=== PATIENT | female | born 1970 | race Caucasian/White ===

== ENCOUNTER → 2019-01-30 11:15 | Outpatient (CLI) | payer OTHER, SELFPAY ==
[2019-01-30 11:09] VITALS: BMI 22.1
[2019-02-23 11:56] LABS: HPV APTIMA, High Risk Negative (Negative)
== END ==
PROVIDERS: Family Provider Nurse Practitioner Family; PCP Nurse Practitioner Family; Referring Provider Obstetrics & Gynecology; Visit Provider Obstetrics & Gynecology
DX: Z12.4 Encounter for screening for malignant neoplasm of cervix (principal)
CPT/HCPCS: 87624; 88175; G0145

== ENCOUNTER → 2021-04-16 12:39 | Outpatient (CLI) | payer OTHER, SELFPAY ==
[2021-04-16 14:54] LABS: NATERA MAILED SPECIMEN
== END ==
PROVIDERS: Referring Provider Obstetrics & Gynecology; Visit Provider Obstetrics & Gynecology
DX: Z12.9 Encounter for screening for malignant neoplasm, site unspecified (principal); Z80.3 Family history of malignant neoplasm of breast
CPT/HCPCS: 36415

== ENCOUNTER → 2021-06-11 11:35 | Outpatient (CLI) | payer OTHER, SELFPAY ==
[2021-06-12 13:36] LABS: Cancer Antigen 125 16.6 U/mL (0.0-38.1)
== END ==
PROVIDERS: Referring Provider Obstetrics & Gynecology; Visit Provider Obstetrics & Gynecology
DX: Z15.01 Genetic susceptibility to malignant neoplasm of breast (principal); Z15.09 Genetic susceptibility to other malignant neoplasm
CPT/HCPCS: 36415; 86304

== ENCOUNTER → 2021-06-15 13:22 | Outpatient (CLI) | payer OTHER, SELFPAY ==
--- NOTE | 2021-06-15 13:26 | US_ITS ---
STUDY: ULTRASOUND OF THE FEMALE PELVIS - COMPLETE REASON FOR EXAM: Female, 51 years old. Brca2 LMP: 05/28/2021. TECHNIQUE: Transabdominal and Transvaginal TECHNICAL QUALITY: Adequate. COMPARISON: None. FINDINGS: The uterus is anteverted and is in a midline position. The uterus measures 9.1 cm x 5.9 cm x 4.2 cm. There is a Nabothian cyst of the cervix. The endometrium measures 5.8 mm in thickness, and is hyperechoic. There is no demonstrated endometrial mass. There is no demonstrated myometrial mass. I.U.D. - The patient does not have an I.U.D. The right ovary is visualized. The right ovary measures 2 cm x 1.8 cm x 0.9 cm. There is no right ovarian cyst or ovarian mass. There is no visualized right adnexal mass or complex lesion. There is normal arterial and normal venous vascularity. The left ovary is visualized. The left ovary measures 4 cm x 3.7 cm x 2.3 cm. There is a 2.4 cm x 2.3 cm x 2.1 cm left ovarian cyst. There is no visualized left adnexal mass or complex lesion. There is normal arterial and normal venous vascularity. There is no fluid in the cul-de-sac. The pre void volume of the bladder was 550 ml. US/Pelvic (Non ) IMPRESSION: 2.4 cm x 2.3 cm x 2.1 cm left ovarian cyst. Electronically Signed: Rusty Layton MD at 14:33 EST , Service support ,
--- NOTE | 2021-06-15 13:26 | US_ITS ---
STUDY: ULTRASOUND OF THE FEMALE PELVIS - COMPLETE REASON FOR EXAM: Female, 51 years old. Brca2 LMP: 05/28/2021. TECHNIQUE: Transabdominal and Transvaginal TECHNICAL QUALITY: Adequate. COMPARISON: None. FINDINGS: The uterus is anteverted and is in a midline position. The uterus measures 9.1 cm x 5.9 cm x 4.2 cm. There is a Nabothian cyst of the cervix. The endometrium measures 5.8 mm in thickness, and is hyperechoic. There is no demonstrated endometrial mass. There is no demonstrated myometrial mass. I.U.D. - The patient does not have an I.U.D. The right ovary is visualized. The right ovary measures 2 cm x 1.8 cm x 0.9 cm. There is no right ovarian cyst or ovarian mass. There is no visualized right adnexal mass or complex lesion. There is normal arterial and normal venous vascularity. The left ovary is visualized. The left ovary measures 4 cm x 3.7 cm x 2.3 cm. There is a 2.4 cm x 2.3 cm x 2.1 cm left ovarian cyst. There is no visualized left adnexal mass or complex lesion. There is normal arterial and normal venous vascularity. There is no fluid in the cul-de-sac. The pre void volume of the bladder was 550 ml. US/Transvaginal Non- IMPRESSION: 2.4 cm x 2.3 cm x 2.1 cm left ovarian cyst. Electronically Signed: Rusty Layton MD at 14:33 EST , Service support ,
== END ==
PROVIDERS: Referring Provider Obstetrics & Gynecology; Visit Provider Obstetrics & Gynecology
DX: Z15.01 Genetic susceptibility to malignant neoplasm of breast (principal); Z15.09 Genetic susceptibility to other malignant neoplasm; N83.202 Unspecified ovarian cyst, left side
CPT/HCPCS: 76830; 76856

== ENCOUNTER 2021-06-23 11:56 | Day surgery (SDC) | payer OTHER, SELFPAY ==
--- NOTE | 2021-06-22 08:50 | EKG12_ITS ---
Test Reason : PRE-OP Blood Pressure : / mmHG Vent. Rate : 075 BPM Atrial Rate : 075 BPM P-R Int : 146 ms QRS Dur : 076 ms QT Int : 380 ms P-R-T Axes : 032 076 055 degrees QTc Int : 424 ms Normal sinus rhythm Normal ECG Confirmed by CHERRY SMITH, FABIÁN ([id number]), editorial assistant CANDE VASQUEZ ([id number]) on 06/22/2021 1:22:57 PM Referred By: Autumn Melendez Confirmed By:FABIÁN CAREY MD
[2021-06-22 09:56] LABS: Absolute Lymphocyte Count 2.24 X10^3/uL (0.83-4.51); Absolute Neutrophil Count 6.2 X10^3/uL (2.0-7.7); Basophil# 0.06 X10^3/uL; Basophil% 0.6 % (0-1); Eosinophil# 0.18 X10^3/uL; Eosinophils% 1.9 % (0-5); Hematocrit 44.5 % (37-47); Hemoglobin 14.8 g/dL (12.0-15.0); Lymphocyte # 2.24 X10^3/ul (0.83-4.51); Lymphocyte % 23.5 % (19-41); Mean Corp Hgb Conc 33.3 g/dL (32-36); Mean Corpuscular Hgb 29.8 pg (27.0-32.0); Mean Corpuscular Volume 89.5 fL (81-99); Mean Platelet Vol. 11.4 fl (6.2-12.0); Monocyte# 0.83 X10^3/uL; Monocyte% 8.7 % (0-10); NRBC Flagged by Analyzer 0 % (0-5); Neutrophil # 6.17 X10^3/uL (2.7-7.7); Neutrophil % 64.9 % (47-70); Platelet Count 290 K/mm3 (150-450); RBC Distribution Width SD 38.8 fl (35.1-43.9); Red Blood Count 4.97 M/mm3 (4.2-5.4); White Blood Count 9.5 K/mm3 (4.4-11.0)
--- NOTE | 2021-06-22 17:17 | HP.PCM_ITS ---
History and Physical Date of Admission: 06/23/21 Vital Signs 06/11/21 10:52 Height 5 ft 4 in Weight: 165 lb BMI 28.3 BP 122/78 H Intake Visit Reasons: Discuss BSO +BRAC2 Chief Complaint: surgical consult BSO BRCA2 Warrant Server Required: No Is patient in pain?: No Allergies ibuprofen [From NeoProfen (ibuprofen lysn)(PF)] Allergy (Mild, Verified 06/11/21 10:53) other PAIN MEDS Adverse Reaction (Uncoded 06/11/21 10:53) Nausea Medications PLEXUS NOT APPLICABLE 02/20/20 [History Confirmed 06/11/21] escitalopram oxalate 20 mg tablet 20 mg PO QDAY #90 tab 04/16/21 [Rx Confirmed 06/11/21] levonorgestrel 0.15 mg-ethinyl estradiol 0.03 mg tablet 1 tab PO DAILY #84 tab 04/16/21 [Rx Confirmed 06/11/21] lorazepam 1 mg tablet 1 mg PO Q8H PRN #10 tab 04/16/21 [Rx Confirmed 06/11/21] Is last menstrual period known: No Post menopausal: No Patient : No : No PFSH Medical History (Updated 06/11/21 @ 11:[address] Autumn Melendez MD) Anxiety disorder atypical cells bilateral breasts BRCA2 positive History of stomach ulcers Surgical History H/O breast biopsy Family History Grandmother Breast cancer Mother Anxiety and depression Aunt Breast cancer stage 4 bone marrow Social History Smoking Status: Never smoker alcohol intake: never substance use type: does not use caffeine: Yes what type of physical activity do you participate in: walking seatbelt use: always do you feel safe at home: Yes additional social history: [employer] Patient stays at home HPI Discuss BSO +BRAC2 Details: JALEN FARRAR is a 51 year old who presents for fu of BRCA positive results. she is on an ocp for hormonal cycle control and is now here to discuss managmeent usp. she denies any hot flashes or night sweats. she is going to [facility] to discuss breast imaging management and follow up, as well as discuss possible mastectomy. she is wanting to proceed with prophylactic oophorectomy. she has anxiety and may need additional anxiety medication postoperatively, we discussed effexor use possibly today. Female Reproductive History Menopausal Symptoms: No night sweats Pregancy History 4 Elective abortions Hx Para 4 Spontaneous abortions Hx # Term Pregnancies 4 Ectopic pregnancies Hx # Pregnancies Multiple births # of living children 4 Past Pregnancies Del. Date Name GA/Weeks Outcome Route Bth Weight Infant Gen Labor Lgth Anesthesia Del Locatn Provider FOB Unknown 1999 Yuliet live - full term Unknown 1995 Ananya live - full term Unknown 2000 Zelalem live - full term Unknown 2004 Billy live - full term Delivery Date: 1995- Ananya 1999- Yuliet 2000- Zelalem 2004- Isis Mccray Delivery Date: No notes to display Delivery Date: No notes to display Delivery Date: No notes to display ROS Const Constitutional: Denies fatigue, night sweats, weight gain or weight loss ENT ENT: Reports system reviewed and no additional complaints, except as documented Cardio Card: Denies chest pain Resp Resp: Denies cough or dyspnea GI GI: Reports as per HPI; Denies abdominal pain, constipation, nausea or vomiting : Denies nipple discharge, urinary frequency, urinary incontinence, urinary hesitancy, urinary urgency, vaginal discharge, vaginal dryness, vaginal odor or vaginal pruritus Musc Musc: Denies arthralgias, back pain or muscle weakness Skin Skin/Breast: Denies alopecia, change in hair, dry skin, breast mass, breast pain, breast skin changes or nipple discharge Neuro Neuro: Reports system reviewed and no additional complaints, except as documente d Psych Psych: Reports system reviewed and no additional complaints, except as documented Endo Endo: Denies cold intolerance, excessive sweating, heat intolerance or polydipsia Maury/Lymph Hematologic/Lymphatic: Denies easy bleeding, Denies easy bruising and Denies lymphadenopathy Exam Const General: cooperative, healthy appearing, comfortable, no acute distress and well developed Orientation: alert [facility] Head: normal to inspection and normocephalic Ears: hearing grossly normal bilaterally and external ears normal Nose: external nose normal and nares normal Face and sinus: normal facial exam Neck Neck: normal visual inspection and no lymphadenopathy Thyroid: thyroid normal Chest Chest palpation & inspection: normal inspection of the chest Resp Effort & Inspection: normal respiratory effort Auscultation: clear to auscultation bilaterally Cardio Rate: regular rate GI Inspection: normal to inspection and non-distended Palpation: soft and no hepatosplenomegaly Musc Other: gross motor intact no deficits, full bilateral strength Skin General: no rashes or lesions noted Neuro General: patient alert, patient awake, moves all extremities and no focal motor deficits Motor: muscle tone normal throughout Extrem General: normal to inspection and no pedal edema Psych Appearance: grossly normal Mental Status: mental status grossly normal Affect: normal affect Speech and Movement: speech and movement normal Coding Level of Care Code Off vis,est,level 4 Diagnoses Family history of breast cancer Z80.3 BRCA positive Z15.01; Z15.09 Assessment and Plan Assessment and Plan (1) Family history of breast cancer: Status: Acute Comment: empower + BRCA; [facility] main imaging every 6 mo mammogram/US/MRI. Sees Dr Gonzalez/[facility]; Pat aunt Plan - Dr. Autumn Melendez MD: After discussing the patient's diagnosis and treatment plan options, patient wishes to proceed with surgical management. I have discussed with the patient the risks, benefits, and alternatives of the procedure which include but are not limited to risks of anesthesia, bleeding, infection, possible damage to bowel, bladder, or surrounding vasculature which could lead to additional surgery to evaluate any complications. Patient agrees to procedure and wishes to proceed. ACOG/uptodate references given for additional information regarding procedure. discussed effexor if needed for vasomotor symptoms postop. (2) BRCA positive: Status: Acute Comment: +BRCA 2, plan laparoscopic BSO. refer to [facility] for management of breast imaging. pelvic us and ca125 ordered UPDATE- I have seen the patient and performed any clinically relevant updates to the history and physical exam. Autumn Melendez MD
[2021-06-23] VITALS (9 sets, daily range): BP systolic 96–115; BP diastolic 58–68; PULSE 57–86; RESP 16; TEMP 35.9–36.6; O2SAT 95–100; BMI 27.9
[2021-06-23 13:06] LABS: Internal QC Validated? YES +Cl - CLEAR BKGD; Pregnancy, Urine Negative Negative
[2021-06-23] MEDS: Lactated Ringers 1,000 ML 15 ML IV ×2 (13:09→15:56)
--- NOTE | 2021-06-23 13:35 | CER_PTH ---
PATIENT: JALEN FARRAR LOC: [facility] – [place] U#:[id number] AGE/SX: 51/F ROOM: RE06/23/[address]: Dr. Autumn Melendez MD : 1970 BED: DIS: 06/23/2021 SPEC #: [id number] RECD: 06/23/21 14:38 STATUS: GUANAKO CLAY #: [id number] INÉS: 06/23/21 13:[address]: Autumn Melendez DEPT: SURGICAL PATHOLOGY RECD BY: Michelle Borges ENTERED: 06/24/21 12:50 SP TYPE: CERV OT DR: No Primary Care Phys Tissues: A - Uterine cervix, NOS B - Ovary, NOS Procedures: Surgery Specimen Level IV HEADER OPERATION: Laparoscopic bilateral salpingo-oophorectomy, pelvic washings PRE-OP DIAGNOSIS: Family history of breast cancer, BRCA positive TISSUE SUBMITTED: A ? Cervical polyp, B ? Bilateral fallopian tubes and ovaries MICROSCOPIC DIAGNOSIS A. Cervical polyp, biopsy: Fragments of inflamed, benign endocervical polyp and mucous. See comment. B. Bilateral fallopian tubes and ovaries, bilateral salpingo-oophorectomy: Bilateral fallopian tubes - no pathologic diagnosis. One ovary - no pathologic diagnosis. Second ovary ? physiologic follicular cyst (2 cm in greatest dimension). SJ:rg 06/25/2021 COMMENT A. The specimen predominantly consists of mucous. MICROSCOPIC DESCRIPTION Slides are reviewed. GROSS DESCRIPTION A - Received in fixative is one container labeled with the patient's name and designated cervical polyp. The specimen consists of multiple fragments of polypoid tissue mixed with hemorrhagic mucoid tissue that in aggregate measure 3 x 2.5 x 0.3 cm. The specimen is totally submitted in one cassette. B - Received in fixative is one container labeled with the patient's name and designated bilateral fallopian tubes and ovaries. The specimen consists of bilateral fallopian tubes and ovaries. They are not identified as right or left. One of the fallopian tubes measure 6 cm in length and 0.7 cm in diameter. No tubo-ovarian adhesions are noted. The fimbrial end is identified. Adjacent ovary measures 2.5 x 1.5 x 0.7 cm. The second fallopian tube is similar appearance to first one and measures 6 cm in length and 0.6 cm in diameter. The adjacent second ovary measures 3 x 2 x 1 cm. Sections reveal a collapsed cyst measuring 2 cm in greatest dimension. Barrel Stave Inspector sections are submitted in four cassettes as follows: 1 & 2 - one fallopian tube and adjacent ovary, 3 & 4 ? second fallopian tube and adjacent ovary. / BRENDA:delmy 06/24/21 TC:5 CPT: 10294 x3
--- NOTE | 2021-06-23 13:35 | FLU_PTH ---
PATIENT: JALEN FARRAR [place] [facility] [place][id number] AGE/SX: 51/F ROOM: RE06/23/[address]: Dr. Autumn Melendez MD : 1970 BED: DIS: 06/23/2021 SPEC #: [id number] RECD: 06/23/21 14:38 STATUS: GUANAKO CLAY #: [id number] INÉS: 06/23/21 13:[address]: Autumn Melendez DEPT: CYTOLOGY RECD BY: Michelle Borges ENTERED: 06/24/21 12:51 SP TYPE: Fluid OTHR DR: No Primary Care Phys Tissues: Pelvis, NOS Procedures: Special Stain Group II Surgery Specimen Level IV Cytospin Fluid HEADER OPERATION: Laparoscopic bilateral salpingo-oophorectomy, pelvic washings PRE-OP DIAGNOSIS: Family history breast cancer; BRCA positive TISSUE SUBMITTED: Pelvic washings DIAGNOSIS CYTOLOGY Pelvic washing fluid (cytospin and cell block): Negative for malignant cells. See comment. BRENDA:delmy 06/25/2021 COMMENT Clinical correlation and appropriate follow up are necessary. CYTOLOGY STUDY Slides are reviewed. CYTOLOGY GROSS Received is 30 ml of light yellow cloudy fluid labeled with the patient's name and and designated per the requisition as pelvic washings. Submitted for cytology preparation including cell block. / delmy 06/24/2021 TC:4 CPT: 38161, 59848
--- NOTE | 2021-06-23 13:53 | OP.PCM_ITS ---
Problems Associated Problem List Diagnoses (1) Family history of breast cancer: (2) BRCA positive: Report of Operation Date of Procedure: 06/23/21 Pre-Operative Diagnosis: see problem list Post-Operative Diagnosis: same Surgery/Procedure Performed:: laparoscopic bilateral salpingoo-ophorectomy Description of Surgical Findings:: nl tubes ovaries tetryl wringer operator: S[place] Type of Anesthesia: General and Local Special Medications: none Specimen's removed: tubes and ovaries Drains: none Estimated Blood Loss (mL): 50 Fluids Replaced: crystalloid Description of Procedure: Patient was taken in the operating room and was placed under general anesthesia was prepped and draped in normal sterile fashion in the dorsal lithotomy position. Bladder was drained of clear urine and SCDs were on preoperatively. Uterus was sounded and a uterine manipulator was placed after dilating. Attention was then paid to the abdominal portion of the procedure and the umbilicus was elevated with towel clamps and injected with Marcaine and after a 12 mm incision was made and the Veress needle was entered into the abdomen confirmed to be intra-abdominal with a low opening pressure of less than 5 mmHg. Abdomen was insufflated with CO2 gas and a 12 mm optical trocar was placed under direct visualization. A right and left lower quadrant 5 mm ports were placed under direct visualization. Uterus was well visualized and bilateral fallopian tubes and ovaries were identified and the bilateral infundibulopelvic ligament were transected across using the LigaSure device followed by transecting across the mesosalpinx to the attachment to the uterine corpus bilaterally the tubes and ovaries were removed without complication. Excellent hemostasis was noted. Specimens were removed through the umbilical port site through a bag without any intra-abdominal spillage of contents. The fascial incision was closed using the Julio Hanson and an 0 Vicryl. Liver and upper abdomen were visualized notably within normal limits and no other gross abnormalities were seen in the abdomen. All instruments removed from the abdomen after gas was desufflated. Port sites were closed with 3-0 Monocryl Steri's and op sites were applied. All instruments removed from the vagina and patient was awoken and taken recovery in stable condition. Grafts/Implants Used: none Complications none Admit VTE Documentation VTE Present on Admission: No VTE Mechan Device Prophylaxis: SCD's Procedures Urinary/Genital 52xxx-59xxx: 25620 Laproscopic BS/O
[2021-06-23] MEDS: Bupivacaine 0.25% 30 ML Vial (14:20)
--- NOTE | 2021-06-23 14:21 | DCINST_ITS ---
Discharge Instructions Diet Discharge Diet: No restrictions Activity Discharge Activity: Return to Normal Activity, May Not Drive (for 2 weeks or while taking narcotic pain meds.), May Shower and May Take a Tub Bath (in 7 days) May resume sexual activity in: 1 week Weight Bearing Status: Full weight bearing Dressing / Incision Call your doctor if your incision/area has: Continuous Slow Oozing, Sudden Increased Bleeding, Increased Pain/ Swelling, Increased Redness and Foul Smelling Discharge Call your doctor if you observe: Fever of 101 or Higher, Using more than 1 pad per hour, Shortness of breath, Chest pain and Uncontrolled pain Suture Line Care: Avoid Pulling/Pushing and Avoid Pinching/Bending Remove Dressing in: 1 week (if present) Cleanse incision/area with: Soap & Water and Keep Dressing Clean & Dry Follow Up Care When: Call to make an appointment with your doctor for a fu/incision check in 1- 2 weeks. Test Results: Test results from this visit will be discussed in further detail at your follow-up appointment, if applicable. Discharge Plan Admission Primary Reason for Your Visit: laparoscopic bilateral salpingooophorectomy Attending Provider: Autumn Melendez Primary Care Provider: Care Physician,No Primary Discharge Orders/Prescriptions Prescriptions: New oxycodone-acetaminophen [Percocet] 5-325 mg tablet 1 tab PO Q6H PRN (Reason: pain) 7 Days Qty: 20 RF: 0 Continued PLEXUS 1 cap PO/SL DAILY RF: 0 lorazepam [Ativan] 1 mg tablet 1 mg PO Q8H PRN (Reason: anxiety) Qty: 10 RF: 0 Biocleanse 1 cap PO/SL QHS RF: 0 escitalopram oxalate 20 mg tablet 20 mg PO QHS RF: 0 Discontinued levonorgestrel-ethinyl estrad 0.15-0.03 mg tablet 1 tab PO DAILY Qty: 84 RF: 4 Referrals / Follow Up: Care Physician,No Primary [Primary Care Provider] - Disposition Disposition (needs filled in before D/C Order can be placed): Home, Self Care
== END 2021-06-23 17:16 | disposition home or self-care (01) ==
LOC: SDC 11:58 → AC 12:08
PROVIDERS: Referring Provider Obstetrics & Gynecology; Visit Provider Obstetrics & Gynecology
PROC: (CPT 58661; principal; 2021-06-23 13:20)
DX: Z40.02 Encounter for prophylactic removal of ovary(s) (principal); N84.1 Polyp of cervix uteri; N83.00 Follicular cyst of ovary, unspecified side; Z15.01 Genetic susceptibility to malignant neoplasm of breast; Z79.3 Long term (current) use of hormonal contraceptives; Z20.822 Contact with and (suspected) exposure to COVID-19; Z80.3 Family history of malignant neoplasm of breast
CPT/HCPCS: 58661; 36415; 81025; 85025; 86850; 86900; 86901; 87426; 88108; 88305; 88313; 93005; C9803; J7120; J2405

== ENCOUNTER → 2023-09-05 | Outpatient (CLI) | payer OTHER, SELFPAY ==
--- OUTSIDE RECORDS SUMMARY | 2023-09-05 14:05 | XMS RPT_ITS | CCD ---
Author Name Unknown Address [address] [place] [address] Organization [facility] Care Team Providers Care Upper Cutter Machine Name Role Phone Autumn Lucas MD Unavailable [phone] Autumn Lucas Primary Care Provider Autumn Lucas Primary Care Provider MATI, ISIS A Admitting Unavailable MATI, ISIS A Attending Unavailable MARCANTHDEANNA, AUTUMN Primary Care Unavailable Autumn Lucas Primary Care Provider Unavailable Primary Care Provider Unavailfabio e SHAYY, AUTUMN Primary Care Unavailable KAMALJIT, MARIANA Attending Unavailable MARCANTHONY, AUTUMN Primary Care Unavailable JUDY CRISOSTOMO Attending Unavailable WADE SCOTT Referring Unavailable MARCANTHONY, AUTUMN Primary Care Unavailable KAMALJIT, MARIANA Referring Unavailable KAMALJIT, MARIANA Attending Unavailable MARCANTHONY, AUTUMN Primary Care Unavailable DARY SMITH Attending Unavailable MARCANTHONY, AUTUMN Primary Care Unavailable LEMON, KEISHA Attending Unavailable KAMALJIT, MARIANA Referring Unavailable MARCANTHONY, AUTUMN Primary Care Unavailable LEMON, KEISHA Attending Unavailable KAMALJIT, MARIANA Referring Unavailable MARCANTHONY, AUTUMN Primary Care Unavailable LEMON, KEISHA Attending Unavailable KAMALJIT, MARIANA Referring Unavailable MARCANTHONY, AUTUMN Primary Care Unavailable DANISHA MUÑOZ Attending Unavailable MATI, ISIS A Referring Unavailable MARCANTHONY, AUTUMN Primary Care Unavailable ANDRESSA, JUDY Attending Unavailable MATI, ISIS A Referring Unavailable MARCANTHONY, AUTUMN Primary Care Unavailable KAMALJIT, MARIANA Attending Unavailable MARCANTHONY, AUTUMN Primary Care Unavailable KAMALJIT, MARIANA Attending Unavailable KAMALJIT, MARIANA Referring Unavailable MARCANTHONY, AUTUMN Primary Care Unavailable ANDRESSA, JUDY Referring Unavailable MARCANTHONY, AUTUMN Primary Care Unavailable MARCANTHONY, AUTUMN Primary Care Unavailable ANDRESSA, JUDY Referring Unavailable AUTUMN LUCAS Primary Care Unavailable ÁNGELA VIVAR Referring Unavailable ÁNGELA VIVAR Referring Unavailable MARIANA SUN Referring Unavailable MARIANA SUN Attending Unavailable AUTUMN LUCAS Primary Care Unavailable Medications Current Medications Medication Drug Class(es) Dates Sig (Normalized) Sig (Original) amoxicillin 875 mg / clavulanate 125 mg oral tablet (2 sources) Penicillin-class Antibacterial Start: 07-07-2022 End: 07-14-2022 take 1 tablet by mouth every twelve hours amoxicillin-clav ulanic acid (AUGMENTIN) 875-125 mg per tablet Take 1 tablet by mouth every 12 hours for 7 days. 14 tablet 0 07/07/2022 07/14/2022 Active Completed/Discontinued Medications Medication Drug Class(es) Dates Sig (Normalized) Sig (Original) acetaminophen 500 mg oral tablet (20 sources) Start: 05-25-2022 take 2 tablets by mouth every six hours acetaminophen (TYLENOL EXTRA STRENGTH) 500 mg tablet Take 2 tablets by mouth every 6 hours. 90 tablet 1 05/25/2022 Active Problems Active Problems Problem Classification Problem Date Documented Date Episodic/Chronic Anxiety disorders (20 sources) Anxiety; Translations: [Anxiety disorder, unspecified] Onset: 10-29-2015 10-29-2015 Chronic Complications of surgical procedures or medical care (1 source) Adverse reaction to substance; Translations: [Other complications of procedures, not elsewhere classified, initial encounter] Episodic Esophageal disorders (20 sources) Gastroesophageal reflux disease; Translations: [Gastro-esophageal reflux disease without esophagitis] Onset: 10-20-2006 10-20-2006 Chronic Miscellaneous mental health disorders (1 source) Psychosomatic factor in physical condition; Translations: [Psychological and behavioral factors associated with disorders or diseases classified elsewhere] Chronic Nonmalignant breast conditions (20 sources) Fibrocystic changes of bilateral breasts; Translations: [Diffuse cystic mastopathy of right breast] Onset: 06-12-2021 06-12-2021 Chronic Other female genital disorders (20 sources) Abnormal uterine bleeding; Translations: [Abnormal uterine and vaginal bleeding, unspecified] Onset: 01-31-2015 01-31-2015 Chronic Other female genital disorders (20 sources) Premenstrual tension syndrome; Translations: [Premenstrual tension syndrome] Onset: 06-10-2016 06-10-2016 Chronic Other nervous system disorders (1 source) Other acute postprocedural pain; Translations: [Post-op pain] Onset: 05-25-2022 Episodic Other nervous system disorders (1 source) Acute postoperative pain; Translations: [Other acute postprocedural pain] Episodic Residual codes; unclassified (4 sources) Prevention status; Translations: [Encounter for prophylactic removal of breast] Episodic Residual codes; unclassified (5 sources) Postoperative state; Translations: [Other specified postprocedural states] Episodic Unclassified (1 source) No current problems or disability 06-28-2017 Unclassified (1 source) Post Op Onset: 08-31-2022 Past or Other Problems Problem Classification Problem Date Documented Date Episodic/Chronic Nonmalignant breast conditions (20 sources) Atypical lobular hyperplasia of right breast; Translations: [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] Onset: 06-12-2021 06-12-2021 Episodic Other screening for suspected conditions (not mental disorders or infectious disease) (20 sources) Mammography abnormal; Translations: [Other abnormal and inconclusive findings on diagnostic imaging of breast] Onset: 09-28-2013 08-12-2015 Episodic Other skin disorders (20 sources) Skin lesion; Translations: [Disorder of the skin and subcutaneous tissue, unspecified] Onset: 09-18-2013 09-18-2013 Episodic Other skin disorders (20 sources) Sebaceous cyst of skin; Translations: [Sebaceous cyst] Onset: 09-18-2013 09-18-2013 Episodic Residual codes; unclassified (20 sources) BRCA2 gene mutation positive; Translations: [Genetic susceptibility to malignant neoplasm of breast] Onset: 06-12-2021 06-12-2021 Episodic Residual codes; unclassified (2 sources) Genetic susceptibility to malignant neoplasm of breast; Translations: [BRCA2 positive] Onset: 02-25-2022 Episodic Residual codes; unclassified (2 sources) Genetic susceptibility to other malignant neoplasm; Translations: [BRCA2 positive] Onset: 02-25-2022 Episodic Residual codes; unclassified (1 source) Acquired absence of bilateral breasts and nipples; Translations: [S/P mastectomy, bilateral] Onset: 08-11-2022 Episodic Residual codes; unclassified (1 source) Encounter for prophylactic removal of breast; Translations: [Prophylactic breast removal] Onset: 05-07-2022 Episodic Results Test Name Value Interpretation Reference Range Facil ity Vital Signs Date Time Vital Sign Value Performing Clinician Aruna quiñonez 08-31-2022 14:22-0500 Body temperature 97.5 [degF] Dary Sarah PA-C Work Phone: [facility] 08-31-2022 14:22-0500 Diastolic blood pressure 56 mm[Hg] Dary Sarah PA-C Work Phone: [facility] 08-31-2022 14:22-0500 Heart rate 71 /min Dary Sarah PA-C Work Phone: [facility] 08-31-2022 14:22-0500 Systolic blood pressure 119 mm[Hg] Dary Sarah PA-C Work Phone: [facility] 05-07-2022 09:29-0400 Body height 165.1 cm Pacc 1 Work Phone: [facility] 05-07-2022 09:29-0400 Body temperature 96.91 [degF] Pacc 1 Work Phone: [facility] 05-07-2022 09:29-0400 Body weight 71.22 kg Pacc 1 Work Phone: [facility] 05-07-2022 09:29-0400 Diastolic blood pressure 76 mm[Hg] Pacc 1 Work Phone: [facility] 05-07-2022 09:29-0400 Heart rate 68 /min Pacc 1 Work Phone: [facility] 05-07-2022 09:29-0400 Respiratory rate 16 /min Pacc 1 Work Phone: [facility] 05-07-2022 09:29-0400 SaO2% (BldA) [Mass fraction] 96 % Pacc 1 Work Phone: [facility] 05-07-2022 09:29-0400 Systolic blood pressure 110 mm[Hg] Pacc 1 Work Phone: [facility] 02-25-2022 14:53-0400 Body height 167.6 cm Danisha Muñoz MD Work Phone: [facility] 02-25-2022 14:53-0400 Body weight 70.31 kg Danisha Muñoz MD Work Phone: [facility] 02-25-2022 13:44-0400 Body height 167.6 cm Isis Thorne DO Work Phone: [facility] 02-25-2022 13:44-0400 Body weight 68.04 kg Isis Thorne DO Work Phone: [facility] Encounters Encounter Date Encounter Type Care Provider Facility Start: 03-30-2023 ambulatory Fay bueno LPN Work Phone: [facility] Procedures Date Procedure Procedure Detail Performing Clinician Start: 08-11-2022 History of bilateral mastectomy S/P mastectomy, bilateral Keisha Lemon PT Start: 05-25-2022 Antibody screen LOGAN CAMILOENTE Plan of Treatment Date Care Activity Detail Author Start: 05-26-2025 DIABETES SCREEN DIABETES SCREEN [facility] Start: 05-07-2025 DIABETES SCREEN DIABETES SCREEN [facility] Start: 01-31-2024 PAP TESTING PAP TESTING [facility] Start: 04-08-2023 Influenza vaccination INFLUENZA (#1) [facility] Start: 11-18-2022 Adult depression screening assessment DEPRESSION SCREENING [facility] Start: 09-16-2022 Adult depression screening assessment DEPRESSION SCREENING [facility] Start: 08-08-2022 DEPRESSION ASSESSMENT DEPRESSION ASSESSMENT [facility] Start: 06-12-2022 Mammography MAMMOGRAM [facility] Start: 04-08-2022 Influenza vaccination [facility] Start: 03-09-2022 End: 03-09-2023 SARS-CoV-2 (COVID-19) RNA [Presence] in Respiratory specimen by CASSANDRA with probe detection PRE-PROCEDURE & PRE-OPERATIVE COVID Microbiology Routine BRCA2 positive Expected: 03/09/2022, Expires: 03/09/2023 [facility] Work Phone: Immunizations Immunization Date Immunization Notes Care Provider Amilcar wang 06-25-2010 influenza virus vaccine, live, attenuated, for intranasal use Fay Brambila LPN Work Phone: [facility] 05-06-2009 influenza virus vaccine, live, attenuated, for intranasal use Fay Brambila SLICING MACHINE OPERATOR/TENDER Work Phone: [facility] Work Phone: 05-29-2008 influenza virus vaccine, live, attenuated, for intranasal use Fay Brambila SLICING MACHINE OPERATOR/TENDER Work Phone: [facility] Work Phone: Payers Date Payer Category Payer Unknown [employer] [id number] 2020-Present [phone] [address] [place] [address] PPO [id number] 2020 Unknown [employer] P[employer] [id number] 2020-Present [phone] [address] [place] [address] PPO [id number] 2020 Unknown [id number] Social History Date Type Detail Facility Start: 05-07-2022 Tobacco smoking stat [facility] Never smoked tobacco [facility] Work Phone: Start: 09-17-2021 End: 12-30-2022 Alcohol intake Current drinker of alcohol (finding) [facility] Start: 12-31-2014 History SDOH Alcohol Comment Seldom [facility] Start: 1970 Sex Assigned At Not on file [facility] Start: 02-15-2022 End: 07-12-2022 Exposure to SARS-CoV-2 (event) Not sure [facility] Start: 05-07-2022 Tobacco use and exposure Smokeless tobacco non-user [facility] Start: 08-20-2022 End: 12-30-2022 History of Social function [facility] Start: 08-20-2022 End: 12-30-2022 Tobacco use panel [facility] Adult Depression Screening Assessment 1 [facility] Medical Equipment Procedure Code Equipment Code Equipment Origin al Text Equipment Identifier Dates Matrix Alloderm Select Thk.4-2.4mm Thick Large Contour 21.5x10.7cm Tissue - [id number] Start: 05-25-2022 Implant Samson Mcintyre Cohesive Breast 375cc Superior [place] Mastopexy - [id number] Start: 05-25-2022 Clinical Notes 11-18-2021 to 03-30-2023 Telephone Encounter - Fay Brambila LPN - 03/30/2023 7:45 AM EDTTelephone Encounter - Leslie Bella - 03/29/2023 11:55 AM EDTMelihosea Turner PT - 09/29/2022 2:04 PM ESTPatient Instructions Note Date & Type Note Facility 03-30-2023 Miscellaneous Notes Sent message to pt via my chart as requested. Fay Brambila LPN Patient calling asking for information on testing for family members. She remembers talking to Judy about some tests and also locations so that her family members could get tested, but she can't recall what all of it was. She is asking if Information could please be sent to her My Chart. Thank you documented in this encounter [facility] 12-30-2022 Note HNO ID: [id number] Author: VIRIDIANA Marrero Service: ? Author Type: Physician Chocolatier Type: Progress Notes Filed: 12/30/2022 3:00 PM Note Text: This note was created using OnLiveriter. Subjective Medina Farrar is a 52 year old female. HPI 52-year-old female presents for cough, congestion and ear pain. Patient states that she has had some chest congestion, ear pain, sore throat and cough for the past 4 days. She states the cough is mainly at nighttime. States sore throat has improved. She has some ear pain/pressure. No fevers. No history of COPD or asthma. No chest pain or shortness of breath. No sick contacts that she is aware of. She has been using Nasacort and Tylenol flu with some improvement. PAST MEDICAL HISTORY Diagnosis Date Anxiety Atypical lobular hyperplasia of breast 2015 Dysmenorrhea Excessive or frequent menstruation Heavy periods Gastric ulcer, unspecified as acute or chronic, without mention of hemorrhage or perforation Other abnormal heart sounds Murmur PAST SURGICAL HISTORY Procedure Laterality Date BX BREAST W/DEVICE 1ST LESION STEREOTACTIC GUID Left 10-08-13 BX BREAST W/DEVICE 1ST LESION STEREOTACTIC GUID Right 09-01-15 EXC CYST/ABERRANT BREAST TISSUE OPEN /> LESION Right 11/03/2015 2 biopsies HYSTERECTOMY HX 06/23/2021 Uterus remains; ovaries and tubes removed PAST SURGICAL HISTORY OF UMBILICAL HERNIA REPAIR REM LESION NEC,HAND,SCAL<0.5CM 09/29/13 Exc. scalp wens x 5 ALLERGIES Patient has no known allergies. MEDICATIONS acetaminophen (TYLENOL EXTRA STRENGTH) 500 mg tablet Take 2 tablets by mouth every 6 hours. escitalopram oxalate (LEXAPRO) 20 mg tablet Take 20 mg by mouth daily at bedtime. LORazepam (ATIVAN) 1 mg tablet Take one tablet (1 mg), one hour, before procedure. Take additional tablet, if needed, when you arrive at procedure for anxiety. Do not combine with alcohol or other medications. Do not drive while under the influence of this medication. benzonatate (TESSALON PERLES) 100 mg capsule Take 1 capsule by mouth three times daily as needed for cough. LACTOBACILLUS ACIDOPHILUS (PROBIOTIC ORAL) Take by mouth as needed. (Patient not taking: Reported on 10/14/2022) FAMILY HISTORY Adopted: Yes Problem Relation Age of Onset other (adopted) Son Breast Cancer Paternal Aunt 68 Stage 4; at 71 Breast Cancer Maternal Grandmother 80 other (Other) Maternal Grandmother Ovarian or Uterine Cancer Social History Tobacco Use Smoking status: Never Smokeless tobacco: Never Vaping Use Vaping Use: Never used Substance Use Topics Alcohol use: Yes Comment: Seldom Drug use: No Review of Systems Constitutional: Negative for chills and fever. HENT: Positive for congestion, ear pain, postnasal drip and sore throat. Respiratory: Positive for cough. Negative for shortness of breath. Cardiovascular: Negative for chest pain. Gastrointestinal: Negative for diarrhea and vomiting. Objective BP 120/76 Pulse 70 Temp 36.6 ?C (97.8 ?F) Resp 18 Wt 72.6 kg (160 lb) LMP 05/28/2021 (Exact Date) SpO2 97% BMI 26.63 kg/m? Physical Exam Vitals and nursing note reviewed. Constitutional: General: She is not in acute distress. Appearance: Normal appearance. She is not toxic-appearing. HENT: Right Ear: Tympanic membrane and ear canal normal. Left Ear: Tympanic membrane and ear canal normal. Ears: Comments: Small amount of clear fluid behind TMs bilaterally. Nose: Nose normal. Mouth/Throat: Mouth: Mucous membranes are moist. Pharynx: No oropharyngeal exudate or posterior oropharyngeal erythema. Eyes: Conjunctiva/sclera: Conjunctivae normal. Cardiovascular: Rate and Rhythm: Normal rate and regular rhythm. Pulmonary: Effort: Pulmonary effort is normal. Breath sounds: Normal breath sounds. Neurological: Mental Status: She is alert. Assessment and Plan ASSESSMENT/PLAN: 1. URI, acute - ICD9: 465.9, ICD10: J06.9 - Discussed viral etiology and rationale for treatment. - Symptomatic treatment with prn analgesia - Supportive care with fluids and rest -Ask for Tessalon Perles for cough. -Continue Nasacort or Flonase. -Declines COVID/flu swab. Diagnosis and treatment plan were discussed and questions were answered to the patient's satisfaction. Pt acknowledged understanding of concepts and follow up plan. Specific signs and symptoms that would indicate the need for higher level of care were discussed in detail warranting prompt ER evaluation. VIRIDIANA Marrero] [facility] 10-14-2022 Note HNO ID: [id number] Author: Danisha Muñoz MD Service: ? Author Type: Physician Type: Progress Notes Filed: 10/14/2022 2:08 PM Note Text: PLASTIC SURGERY ESTABLISHED PATIENT VISIT Established patient visit CC: follow up breast reconstruction HPI: Medina Farrar is a 52 year old female with a history of BRCA 2 mutation. She is doing well and is overall happy with the results, feels her left nipple is slightly inverted. Date of Surgery: 05/25/22 Surgery: Bilateral breast reconstruction (DTI) Time post op: 4.5 months Hx Radiation Therapy: No Hx Chemotherapy: No PAIN : No: 0 on a scale of 0 to 10 Implant information: [facility] REVIEW OF SYSTEMS PAIN ASSESSMENT: Negative for pain, history of chronic pain, or current treatment for a chronic pain condition. GENERAL: No weight loss, malaise or fevers Allergies: No Known Allergies PAST MEDICAL HISTORY Diagnosis Date Anxiety Atypical lobular hyperplasia of breast 2015 Dysmenorrhea Excessive or frequent menstruation Heavy periods Gastric ulcer, unspecified as acute or chronic, without mention of hemorrhage or perforation Other abnormal heart sounds Murmur PAST SURGICAL HISTORY Procedure Laterality Date BX BREAST W/DEVICE 1ST LESION STEREOTACTIC GUID Left 10-08-13 BX BREAST W/DEVICE 1ST LESION STEREOTACTIC GUID Right 09-01-15 EXC CYST/ABERRANT BREAST TISSUE OPEN /> LESION Right 11/03/2015 2 biopsies HYSTERECTOMY HX 06/23/2021 Uterus remains; ovaries and tubes removed PAST SURGICAL HISTORY OF UMBILICAL HERNIA REPAIR REM LESION NEC,HAND,SCAL<0.5CM 09/29/13 Exc. scalp wens x 5 Current Outpatient Medications on File Prior to Visit Medication Sig acetaminophen (TYLENOL EXTRA STRENGTH) 500 mg tablet Take 2 tablets by mouth every 6 hours. (Patient not taking: No sig reported) escitalopram oxalate (LEXAPRO) 20 mg tablet Take 20 mg by mouth daily at bedtime. LORazepam (ATIVAN) 1 mg tablet Take one tablet (1 mg), one hour, before procedure. Take additional tablet, if needed, when you arrive at procedure for anxiety. Do not combine with alcohol or other medications. Do not drive while under the influence of this medication. LACTOBACILLUS ACIDOPHILUS (PROBIOTIC ORAL) Take by mouth as needed. No current facility-administered medications on file prior to visit. Social History Tobacco Use Smoking status: Never Smokeless tobacco: Never Vaping Use Vaping Use: Never used Substance Use Topics Alcohol use: Yes Comment: Seldom Drug use: No There were no vitals filed for this visit. There is no height or weight on file to calculate BMI. PE Alert and oriented in NAD bilateral breast scar well healed No erythema or drainage noted bilateral breast soft, bilateral implants intact Grade I bilaterally Contour irregularities s/p mastectomy Breast asymmetry following reconstruction: Equal ASSESSMENT/PLAN: hx of BRCA 2 mutation, s/p bilateral breast reconstruction with direct to implant. Return to clinic in May 2023, or sooner if needed. I spent 30 minutes in the visit, with more than 50% of the total topx-ic-frcb time of the visit in counseling / coordination of care. The patient is seen and examined by Dr. Muñoz and the following reflects his service. Scribed by Fay Lynch RN. The patient is seen and examined by Dr. Muñoz and the following reflects his/her service. Scribed by Dary Cervantes. I agree with the Chief Complaint, ROS, and Past Histories independently gathered by the clinical it support consultant and the remaining scribed note accurately describes my personal service to the patient. Provider Attestation: I, Danisha Muñoz MD, personally performed the services described in this documentation. All medical record entries made by the scribe were at my direction and in my presence. I have reviewed the chart and discharge instructions (if applicable) and agree that the record reflects my personal performance and is accurate and complete. Dnaisha Muñoz MD [facility] 09-29-2022 Note HNO ID: [id number] Author: Keisha Turner PT Service: ? Author Type: Physical Therapist Type: Progress Notes Filed: 09/29/2022 2:11 PM Note Text: Episode Visit Count: 3 Therapist That Will Accept/Oversee The Plan Of Care: Keisha Turner Start of Care Date: 08/11/22 Onset Date: 05/25/22 Patient Identified by Name and Date of : Yes REHABILITATION AND SPORTS THERAPY PHYSICAL THERAPY TREATMENT NOTE ASSESSMENT: Medina Farrar tolerated the session with no issues. She demonstrated improvements in B shld AROM, reported pain and function. The patient will continue to benefit from ongoing skilled physical therapy for reassessment by supervising therapist. PLAN FOR NEXT VISIT: Pt to continue independently with HEP and may follow up in 2-3 weeks. SUBJECTIVE: Patient Reason for Visit: Pt states she feels she is doing really well. She notes she can use her arm better and does not get the pain/pulling she had when reaching. She is able to lift and carry better and without pain demosntrated as she was able to load and unload groceries brigitte other day. Pain: Pain Pain Level: 0 Post Treatment Pain Post Treatment Pain Level: 0 Post Treatment Pain Location: Shoulder - Right, Shoulder - Left, Chest - Right, Chest - Left OBJECTIVE MEASURES WITH LEVEL OF FUNCTION: UE PROM R UE PROM: AROM: extension 70 deg L UE PROM: AROM: extension 65 deg (minimal pulling) R Shoulder Flex: 145 Degrees (no pain, minimal p;ulling) R Shoulder ABduction: 145 Degrees R Shoulder Internal Rotation: (thumb to 1inch below inferior angle of scapula) R Shoulder External Rotation: 90 Degrees L Shoulder Flex: 145 Degrees L Shoulder ABduction: 143 Degrees L Shoulder Internal Rotation: (thumb to inferior angle of scapula) L Shoulder External Rotation: 75 Degrees TREATMENT: Therapeutic Exercise: 1: *post shld circles x 20 2: *scapular retractions 5 sec holds 2 x 10 3: *posture correction 4: *goalpost stretch 5: *standing shld extension stretch x 30 sec x3 6: Educated pt in postural correction, especially in sitting. Discussed use of lumbar support when sitting. Skilled Intervention: Patient was educated in proper exercise technique and purpose for exercises. Reviewed and educated patient on additions/changes for home exercise program as above (*). Skilled judgment was provided in selection of appropriate interventions. Provided written instruction for home exercise program to facilitate proper performance and compliance. Correct performance of therapeutic exercises was facilitated with verbal and visual cuing. Patient education as noted. Billing Therapeutic Exercise Treatment Minutes: 37 Total Treatment Time Minutes (timed/untimed): 37 Keisha Turner, PT [facility] 09-29-2022 History of Presen t illness Narrative Episode Visit Count: 3 Therapist That Will Accept/Oversee The Plan Of Care: Keisha Turner Start of Care Date: 08/11/22 Onset Date: 05/25/22 Patient Identified by Name and Date of : Yes REHABILITATION AND SPORTS THERAPY PHYSICAL THERAPY TREATMENT NOTE ASSESSMENT: Medina Farrar tolerated the session with no issues. She demonstrated improvements in B shld AROM, reported pain and function. The patient will continue to benefit from ongoing skilled physical therapy for reassessment by supervising therapist. PLAN FOR NEXT VISIT: Pt to continue independently with HEP and may follow up in 2-3 weeks. SUBJECTIVE: Patient Reason for Visit: Pt states she feels she is doing really well. She notes she can use her arm better and does not get the pain/pulling she had when reaching. She is able to lift and carry better and without pain demosntrated as she was able to load and unload groceries brigitte other day. Pain: Pain Pain Level: 0 Post Treatment Pain Post Treatment Pain Level: 0 Post Treatment Pain Location: Shoulder - Right, Shoulder - Left, Chest - Right, Chest - Left OBJECTIVE MEASURES WITH LEVEL OF FUNCTION: UE PROM R UE PROM: AROM: extension 70 deg L UE PROM: AROM: extension 65 deg (minimal pulling) R Shoulder Flex: 145 Degrees (no pain, minimal p;ulling) R Shoulder ABduction: 145 Degrees R Shoulder Internal Rotation: (thumb to 1inch below inferior angle of scapula) R Shoulder External Rotation: 90 Degrees L Shoulder Flex: 145 Degrees L Shoulder ABduction: 143 Degrees L Shoulder Internal Rotation: (thumb to inferior angle of scapula) L Shoulder External Rotation: 75 Degrees TREATMENT: Therapeutic Exercise: 1: *post shld circles x 20 2: *scapular retractions 5 sec holds 2 x 10 3: *posture correction 4: *goalpost stretch 5: *standing shld extension stretch x 30 sec x3 6: Educated pt in postural correction, especially in sitting. Discussed use of lumbar support when sitting. Skilled Intervention: Patient was educated in proper exercise technique and purpose for exercises. Reviewed and educated patient on additions/changes for home exercise program as above (*). Skilled judgment was provided in selection of appropriate interventions. Provided written instruction for home exercise program to facilitate proper performance and compliance. Correct performance of therapeutic exercises was facilitated with verbal and visual cuing. Patient education as noted. Billing Therapeutic Exercise Treatment Minutes: 37 Total Treatment Time Minutes (timed/untimed): 37 Keisha Turner PT documented in this encounter [facility] 09-15-2022 Note HNO ID: [id number] Author: Keisha Turner PT Service: ? Author Type: Physical Therapist Type: Progress Notes Filed: 09/15/2022 1:22 PM Note Text: Episode Visit Count: 2 Therapist That Will Accept/Oversee The Plan Of Care: Keisha Turner Start of Care Date: 08/11/22 Onset Date: 05/25/22 Patient Identified by Name and Date of : Yes REHABILITATION AND SPORTS THERAPY PHYSICAL THERAPY PROGRESS REPORT PLAN OF CARE UPDATE: Assessment: Medina Farrar demonstrates difficulty with lifting, recreational activities, and reaching overhead and improvements in lifting, reaching overhead, and carrying. She hasprogressed toward goals. Patient continues to present with impairments in independence in exercise, overall function, range of motion, and strength that interfere with lifting, reaching overhead, recreational activities (overhead is fine to a certain point then pulls at end range) . Current prognosis is Excellent due to: current objective clinical presentation, good overall health status, good support system/ coping skills . She will benefit from continued skilled therapy services to meet the updated goals for this plan of care as noted below. Goals for Episode of Care: created on 08/11/22 through 10/09/22 Goals updated on 09/15/2022. [place] in home exercise program. (Partially Met)-able, with poor compliance Patient will decrease pain rating by 2 points to meet minimal clinical important difference for numeric pain rating scale. (Partially Met)- intermittent Patient will increase active ROM of B shlds to 120-150 deg flex and abd, ER to 75-80 deg, and ext 45-60 deg to allow pt to to improve performance of ADLs. (Met) Patient will demonstrate increase in B UE strength to 5/5 during manual muscle testing in order to improve function for home management tasks and prior functional tasks. (Not Met) Perform all daily activities, including lifting, carrying and caring for her grandchildren without pain. (Partially Met)- improving Improve postural awareness. (Not Met) Pt will be educated in lymphedema signs, symptoms, precautions and treatment. Patient Goals: To improve UE AROM to return to normal function. Planned Interventions, Frequency, and Duration: 1x every other week, 8 weeks Total Number of Visits Planned: 4 Patient to be seen for Therapeutic exercise (86392), Neuromuscular re-education (48739), Manual therapy (60555), Self-halfway management (36509), Patient/Family/Caregiver Education PLAN FOR NEXT VISIT: Assess shld ROM and HEP compliance. May add post shld circles, scapular strengthening, resistive bands, and/or stretches to address remaining limitations in flexibility/ROM. May add manual soft tissue techniques per any remaining restrictions. SUBJECTIVE: Patient Reason for Visit: Pt states she has not been as faithful with the exercises as she should have been (zero or once a day and mainly the wall stretches,but has done some of the others a few times). She notes she hasn't really had any pain unless she reaches too far, but has soreness more often. She would like to start using the rowing machine again, but not sure if it would irritate her shoulders. She uses the stationary bike once a day on weekends when she can, but usually doesn't use the arm part (Airdyne style). Still reports some limitations with lifting her grandharpal (2 yr old), but in general it's not bad . Reaching behind her back is better. Functional Limitations: lifting, reaching overhead, recreational activities (overhead is fine to a certain point then pulls at end range) Pain: Pain Pain Level: 0 Pain Location: Axilla - Right, Axilla - Left, Chest - Right, Chest - Left (lateral chest, axilla, subaxillary) Description: Sore, Tightness Frequency: Intermittent Post Treatment Pain Post Treatment Pain Level: 0 Post Treatment Pain Location: Shoulder - Right, Shoulder - Left, Chest - Right, Chest - Left Post Treatment Pain Description: ( It feels like I've worked it a little, but it's not painful. ) PROMIS Scales Higher is Better 02/22/2022 06/26/2022 08/11/2022 Phys Func - Score - - 50 (within normal limits) Phys Func - Percentile - - 50 % GH Physical - Score 54.1 (Very Good) 50.8 (Very Good) - GH Physical - Percentile 66 % 53 % - GH Mental - Score 43.5 (Good) 43.5 (Good) - GH Mental - Percentile 26 % 26 % - Self-Eff Symptom - Score - - 48 (Average) Self-Eff Symptom - Percentile - - 42 % T-scores: mean of general population = 50. 5 points is clinically meaningfully difference Percentiles provide an indication of how the patient's score ranks in relation to the general population. Higher percentile rankings indicate better function/quality of life. 50th percentile is the average of the general population and indicates half of respondents had a worse score. T-scores: mean of general population = 50. 5 points is clinically meaningfully difference Percenti (more content not included)... [facility] 09-15-2022 History of Presen t illness Narrative Episode Visit Count: 2 Therapist That Will Accept/Oversee The Plan Of Care: Keisha Turner Start of Care Date: 08/11/22 Onset Date: 05/25/22 Patient Identified by Name and Date of : Yes REHABILITATION AND SPORTS THERAPY PHYSICAL THERAPY PROGRESS REPORT PLAN OF CARE UPDATE: Assessment: Medina Farrar demonstrates difficulty with lifting, recreational activities, and reaching overhead and improvements in lifting, reaching overhead, and carrying. She hasprogressed toward goals. Patient continues to present with impairments in independence in exercise, overall function, range of motion, and strength that interfere with lifting, reaching overhead, recreational activities (overhead is fine to a certain point then pulls at end range) . Current prognosis is Excellent due to: current objective clinical presentation, good overall health status, good support system/ coping skills . She will benefit from continued skilled therapy services to meet the updated goals for this plan of care as noted below. Goals for Episode of Care: created on 08/11/22 through 10/09/22 Goals updated on 09/15/2022. [place] in home exercise program. (Partially Met)-able, with poor compliance Patient will decrease pain rating by 2 points to meet minimal clinical important difference for numeric pain rating scale. (Partially Met)- intermittent Patient will increase active ROM of B shlds to 120-150 deg flex and abd, ER to 75-80 deg, and ext 45-60 deg to allow pt to to improve performance of ADLs. (Met) Patient will demonstrate increase in B UE strength to 5/5 during manual muscle testing in order to improve function for home management tasks and prior functional tasks. (Not Met) Perform all daily activities, including lifting, carrying and caring for her grandchildren without pain. (Partially Met)- improving Improve postural awareness. (Not Met) Pt will be educated in lymphedema signs, symptoms, precautions and treatment. Patient Goals: To improve UE AROM to return to normal function. Planned Interventions, Frequency, and Duration: 1x every other week, 8 weeks Total Number of Visits Planned: 4 Patient to be seen for Therapeutic exercise (26837), Neuromuscular re-education (48778), Manual therapy (10839), Self-halfway management (49555), Patient/Family/Caregiver Education PLAN FOR NEXT VISIT: Assess shld ROM and HEP compliance. May add post shld circles, scapular strengthening, resistive bands, and/or stretches to address remaining limitations in flexibility/ROM. May add manual soft tissue techniques per any remaining restrictions. SUBJECTIVE: Patient Reason for Visit: Pt states she has not been as faithful with the exercises as she should have been (zero or once a day and mainly the wall stretches,but has done some of the others a few times). She notes she hasn't really had any pain unless she reaches too far, but has soreness more often. She would like to start using the rowing machine again, but not sure if it would irritate her shoulders. She uses the stationary bike once a day on weekends when she can, but usually doesn't use the arm part (Airdyne style). Still reports some limitations with lifting her estephanie (2 yr old), but in general it's not bad . Reaching behind her back is better. Functional Limitations: lifting, reaching overhead, recreational activities (overhead is fine to a certain point then pulls at end range) Pain: Pain Pain Level: 0 Pain Location: Axilla - Right, Axilla - Left, Chest - Right, Chest - Left (lateral chest, axilla, subaxillary) Description: Sore, Tightness Frequency: Intermittent Post Treatment Pain Post Treatment Pain Level: 0 Post Treatment Pain Location: Shoulder - Right, Shoulder - Left, Chest - Right, Chest - Left Post Treatment Pain Description: ( It feels like I've worked it a little, but it's not painful. ) PROMIS Scales Higher is Better 02/22/2022 06/26/2022 08/11/2022 Phys Func - Score - - 50 (within normal limits) Phys Func - Percentile - - 50 % GH Physical - Score 54.1 (Very Good) 50.8 (Very Good) - GH Physical - Percentile 66 % 53 % - GH Mental - Score 43.5 (Good) 43.5 (Good) - GH Mental - Percentile 26 % 26 % - Self-Eff Symptom - Score - - 48 (Average) Self-Eff Symptom - Percentile - - 42 % T-scores: mean of general population = 50. 5 points is clinically meaningfully difference Percentiles provide an indication of how the patient's score ranks in relation to the general population. Higher percentile rankings indicate better function/quality of life. 50th percentile is the average of the general population and indicates half of respondents had a worse score. T-scores: mean of general population = 50. 5 points is clinically meaningfully difference Percentiles provide an indication of how the patient's score ranks in relation to the general population. Higher percentile rankings indicate better function/quality of life. 50th percentile is the average of the general population and indicates half of respondents had a worse score. OBJECTIVE MEASURES WITH LEVEL OF FUNCTION: UE PROM R UE PROM: AROM: extension 70 deg (ant pecs, min.soreness at end range L UE PROM: AROM: extension 60 deg (ant pecs, min.soreness at end range R Shoulder Flex: 135 Degrees (PROM: 150 deg with use of pulleys) R Shoulder ABduction: 125 Degrees (end range soreness medial axilla) R Shoulder Internal Rotation: (thumb to 3 inferior to inf angle of scapula) R Shoulder External Rotation: 90 Degrees L Shoulder Flex: 140 Degrees (feels tighter; PROM: 145 deg with using pulleys) L Shoulder ABduction: 135 Degrees (end range pulling) L Shoulder Internal Rotation: (thumb to 2 inferior to inf angle of scapula) L Shoulder External Rotation: 75 Degrees (a little tight) UE and Cervical Strength Strength Tested: Shoulder All R Shoulder Flexion: 4/5 (uncomfortable) R Shoulder Abduction (C5): 4-/5 (uncomfortable) R Shoulder Internal Rotation: 4+/5 R Shoulder External Rotation: 4+/5 TREATMENT: Therapeutic Exercise: 1: Reviewed wall shld flex stretch 3 x 30 sec and pt performing correctly. 2: *Instructed in seated shld pulleys for B shlds. Educated in use of over the door unit at home. 3: Reviewed B AROM shld abductions. Pt demosntrated correct form. 4: Discussed pt's daily activities/schedule and difficulty finding time for exercise with her 3 grandchildren. Educated pt on techniques and modifications to increase compliance with HEP despite her busy schedule. Did not add new exercises (other than pulleys) as pt having difficulty finding time to do her current HEP. Skilled Intervention: Patient was educated in proper exercise technique and purpose for exercises. Reviewed and educated patient on additions/changes for home exercise program as above (*). Skilled judgment was provided in selection of appropriate interventions. Provided written instruction for home exercise program to facilitate proper performance and compliance. Correct performance of therapeutic exercises was facilitated with verbal and visual cuing. Additional time necessary for objective measurements and reassessment due to plan of care update. Patient education as noted. Billing Therapeutic Exercise Treatment Minutes: 40 Total Treatment Time Minutes (timed/untimed): 40 Keisha Turner PT documented in this encounter [facility] 09-10-2022 Note HNO ID: [id number] Author: Dary Smith PA-C Service: ? Author Type: Physician Chocolatier Type: Progress Notes Filed: 09/10/2022 7:31 AM Note Text: CC: post op HPI: Medina Farrar is a 52 year old female who presents s/p 05/25/22 bilateral breast reconstruction with direct to implant with alloderm ([facility] 375). Patient has a stitch in the right breast that is bothering her. escitalopram oxalate (LEXAPRO) 20 mg tablet Take 20 mg by mouth daily at bedtime. LORazepam (ATIVAN) 1 mg tablet Take one tablet (1 mg), one hour, before procedure. Take additional tablet, if needed, when you arrive at procedure for anxiety. Do not combine with alcohol or other medications. Do not drive while under the influence of this medication. LACTOBACILLUS ACIDOPHILUS (PROBIOTIC ORAL) Take by mouth as needed. acetaminophen (TYLENOL EXTRA STRENGTH) 500 mg tablet Take 2 tablets by mouth every 6 hours. (Patient not taking: No sig reported) Allergies: ALLERGIES No Known Allergies REVIEW OF SYSTEMS As above General: No fever, chills Cardiac: No chest pain, palpitations Respiratory: No cough or shortness of breath All other reviewed and negative other than HPI. PHYSICAL EXAM: Bilateral breasts good symmetry, NAC intact, incisions cdi Right breast with palpable suture, fully under the skin No erythema, no drainage, no opening in incision A/P: Post op As expected, healing well Discussed that I do not want to open skin to remove suture as this increases risk of infection. Discussed that gentle massage to the area will help suture to dissolve. If suture is still there in a few months and still irritating, would need to open up area to remove suture and re-close. Follow up as scheduled. Dary Smith PA-C 08/31/22 [facility] 09-10-2022 History of Presen t illness Narrative CC: post op HPI: Medina Farrar is a 52 year old female who presents s/p 05/25/22 bilateral breast reconstruction with direct to implant with alloderm ([facility] 375). Patient has a stitch in the right breast that is bothering her. escitalopram oxalate (LEXAPRO) 20 mg tablet Take 20 mg by mouth daily at bedtime. LORazepam (ATIVAN) 1 mg tablet Take one tablet (1 mg), one hour, before procedure. Take additional tablet, if needed, when you arrive at procedure for anxiety. Do not combine with alcohol or other medications. Do not drive while under the influence of this medication. LACTOBACILLUS ACIDOPHILUS (PROBIOTIC ORAL) Take by mouth as needed. acetaminophen (TYLENOL EXTRA STRENGTH) 500 mg tablet Take 2 tablets by mouth every 6 hours. (Patient not taking: No sig reported) Allergies: ALLERGIES No Known Allergies REVIEW OF SYSTEMS As above General: No fever, chills Cardiac: No chest pain, palpitations Respiratory: No cough or shortness of breath All other reviewed and negative other than HPI. PHYSICAL EXAM: Bilateral breasts good symmetry, NAC intact, incisions cdi Right breast with palpable suture, fully under the skin No erythema, no drainage, no opening in incision A/P: Post op As expected, healing well Discussed that I do not want to open skin to remove suture as this increases risk of infection. Discussed that gentle massage to the area will help suture to dissolve. If suture is still there in a few months and still irritating, would need to open up area to remove suture and re-close. Follow up as scheduled. Dary Smith PA-C 08/31/22 documented in this encounter [facility] 08-11-2022 Note HNO ID: [id number] Author: Keisha Turner, ROYA Service: ? Author Type: Physical Therapist Type: Progress Notes Filed: 08/11/2022 2:54 PM Note Text: Episode Visit Count: 1 Therapist That Will Accept/Oversee The Plan Of Care: Keisha Turner Start of Care Date: 08/11/22 Onset Date: 05/25/22 Patient Identified by Name and Date of : Yes REHABILITATION AND SPORTS THERAPY PHYSICAL THERAPY EVALUATION PLAN OF CARE: Assessment: Medina Farrar presents with diagnosis of s/p B mastectomy that interferes with carrying;reaching overhead;lifting (limiting lifting to avoiding heavy items (her grandchildren)) . She presents with impairments in flexibility, overall function, posture, range of motion, soft tissue healing, and strength . Prognosis for therapy is Excellent due to: current objective clinical presentation;good overall health status;good support system/ coping skills . She will benefit from skilled therapy services to meet the goals established for this plan of care as noted below. Goals for Episode of Care: created on 08/11/22 through 10/09/22 [place] in home exercise program. Patient will decrease pain rating by 2 points to meet minimal clinical important difference for numeric pain rating scale. Patient will increase active ROM of B shlds to 120-150 deg flex and abd, ER to 75-80 deg, and ext 45-60 deg to allow pt to to improve performance of ADLs. Patient will demonstrate increase in B UE strength to 5/5 during manual muscle testing in order to improve function for home management tasks and prior functional tasks. Perform all daily activities, including lifting, carryin gand caring for her grandchildren without pain. Improve postural awareness. Pt will be educated in lymphedema signs, symptoms, precautions and treatment. Patient Goals: To improve UE AROM to return to normal function. Planned Interventions, Frequency, and Duration: Current Frequency: 1x every other week Duration: 8 weeks Total Number of Visits Planned: 4 Planned Treatment Interventions: Therapeutic exercise (71880);Neuromuscular re-education (13042);Manual therapy (60912);Self-halfway management (21631);Patient/Family/Caregiver Education PLAN FOR NEXT VISIT: Assess shld ROM and current HEP. May add shld pulleys, post shld circles, scapular retractions, etc. May add manual soft tissue techniques per any remaining restrictions. Patient demonstrates good understanding of plan of care and treatment. The above goals and plan of care were discussed and agreed upon by patient/family. SUBJECTIVE: Medina Farrar is a 52 year old female seen today for Pt reports she has a stictch that sits just under brigitte skin that is bugging her where her bra rubs. She feels the most under the arms when trying to reach etc. L breast area can get inflamed and more constant. OTherwise pain is not high , but I can tell. Lifting granddaughter (30#). Sore. with activities (sweeping, mopping) Denies any cording. Patient Goals: To improve UE AROM to return to normal function. 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 States, low level .) Pain Location: Axilla - Right;Axilla - Left;Chest - Right;Chest - Left;Breast - Left;Breast - Right Description: Tightness;Other: See comment (sore, pulling) Frequency: Intermittent Post Treatment Pain Post Treatment Pain Level: No Change PROMIS Scales Higher is Better 02/22/2022 06/26/2022 08/11/2022 Phys Func - Score - - 50 (within normal limits) Phys Func - Percentile - - 50 % GH Physical - Score 54.1 (Very Good) 50.8 (Very Good) - GH Physical - Percentile 66 % 53 % - GH Mental - Score 43.5 (Good) 43.5 (Good) - GH Mental - Percentile 26 % 26 % - Self-Eff Symptom - Score - - 48 (Average) Self-Eff Symptom - Percentile - - 42 % T-scores: mean of general population = 50. 5 points is clinically meaningfully difference Percentiles provide an indication of how the patient's score ranks in relation to the general population. Higher percentile rankings indicate better function/quality of life. 50th percentile is the average of the general population and indicates half of respondents had a worse score. T-scores: mean of general population = 50. 5 points is clinically meaningfully difference Percentiles provide an indication of how the patient's score ranks in relation to the general population. Higher percentile rankings indicate better function/quality of life. 50th percentile is the average of the general population and indicates half of respondents (more content not included)... [facility] 08-11-2022 History of Presen t illness Narrative Episode Visit Count: 1 Therapist That Will Accept/Oversee The Plan Of Care: Keisha Turner Start of Care Date: 08/11/22 Onset Date: 05/25/22 Patient Identified by Name and Date of : Yes REHABILITATION AND SPORTS THERAPY PHYSICAL THERAPY EVALUATION PLAN OF CARE: Assessment: Medina Farrar presents with diagnosis of s/p B mastectomy that interferes with carrying;reaching overhead;lifting (limiting lifting to avoiding heavy items (her grandchildren)) . She presents with impairments in flexibility, overall function, posture, range of motion, soft tissue healing, and strength . Prognosis for therapy is Excellent due to: current objective clinical presentation;good overall health status;good support system/ coping skills . She will benefit from skilled therapy services to meet the goals established for this plan of care as noted below. Goals for Episode of Care: created on 08/11/22 through 10/09/22 [place] in home exercise program. Patient will decrease pain rating by 2 points to meet minimal clinical important difference for numeric pain rating scale. Patient will increase active ROM of B shlds to 120-150 deg flex and abd, ER to 75-80 deg, and ext 45-60 deg to allow pt to to improve performance of ADLs. Patient will demonstrate increase in B UE strength to 5/5 during manual muscle testing in order to improve function for home management tasks and prior functional tasks. Perform all daily activities, including lifting, carryin gand caring for her grandchildren without pain. Improve postural awareness. Pt will be educated in lymphedema signs, symptoms, precautions and treatment. Patient Goals: To improve UE AROM to return to normal function. Planned Interventions, Frequency, and Duration: Current Frequency: 1x every other week Duration: 8 weeks Total Number of Visits Planned: 4 Planned Treatment Interventions: Therapeutic exercise (09221);Neuromuscular re-education (56721);Manual therapy (62266);Self-halfway management (07250);Patient/Family/Caregiver Education PLAN FOR NEXT VISIT: Assess shld ROM and current HEP. May add shld pulleys, post shld circles, scapular retractions, etc. May add manual soft tissue techniques per any remaining restrictions. Patient demonstrates good understanding of plan of care and treatment. The above goals and plan of care were discussed and agreed upon by patient/family. SUBJECTIVE: Medina Farrar is a 52 year old female seen today for Pt reports she has a stictch that sits just under brigitte skin that is bugging her where her bra rubs. She feels the most under the arms when trying to reach etc. L breast area can get inflamed and more constant. OTherwise pain is not high , but I can tell. Lifting granddaughter (30#). Sore. with activities (sweeping, mopping) Denies any cording. Patient Goals: To improve UE AROM to return to normal function. 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 States, low level .) Pain Location: Axilla - Right;Axilla - Left;Chest - Right;Chest - Left;Breast - Left;Breast - Right Description: Tightness;Other: See comment (sore, pulling) Frequency: Intermittent Post Treatment Pain Post Treatment Pain Level: No Change PROMIS Scales Higher is Better 02/22/2022 06/26/2022 08/11/2022 Phys Func - Score - - 50 (within normal limits) Phys Func - Percentile - - 50 % GH Physical - Score 54.1 (Very Good) 50.8 (Very Good) - GH Physical - Percentile 66 % 53 % - GH Mental - Score 43.5 (Good) 43.5 (Good) - GH Mental - Percentile 26 % 26 % - Self-Eff Symptom - Score - - 48 (Average) Self-Eff Symptom - Percentile - - 42 % T-scores: mean of general population = 50. 5 points is clinically meaningfully difference Percentiles provide an indication of how the patient's score ranks in relation to the general population. Higher percentile rankings indicate better function/quality of life. 50th percentile is the average of the general population and indicates half of respondents had a worse score. T-scores: mean of general population = 50. 5 points is clinically meaningfully difference Percentiles provide an indication of how the patient's score ranks in relation to the general population. Higher percentile rankings indicate better function/quality of life. 50th percentile is the average of the general population and indicates half of respondents had a worse score. OBJECTIVE MEASURES WITH LEVEL OF FUNCTION: Lymphedema Presents with: Functional Limitations;Pain;Decreased knowledge of lymphedema management Lymphedema Contributing Factors: Lymph Node Removal Relative Contra-indications to Compression: : None Relative Contra-indications to Manual Lymph Drainage: : None Relative Contra-indications to Neck Manual Lymph Drainage: : None Relative Contra-indications for Abdominal Sequences: None Skin: (Not fully assessed today as pt is followed by plastics and breast surgeon.) Breast Cancer Related Stage of Lymphedema: At Risk- Limb volume 0%-3% greater than baseline (At risk d/t surgicla history. No symptoms reported by pt currently.) UE PROM R UE PROM: extension 40 deg (ant pecs, lateral breast) L UE PROM: extension 43 deg (tight/sore at lateral breast) R Shoulder Flex: 130 Degrees (pulling anterior pectoralis) R Shoulder ABduction: 100 Degrees (generally stiff subaxillary region) R Shoulder Internal Rotation: (thumb to 3 inferior to inf angle of scapula, tight/sore) R Shoulder External Rotation: 70 Degrees (minimal pulling ant shld and lateral thoracic) L Shoulder Flex: 140 Degrees (anterior pecs, lateral subaxillary, lateral thoracic) L Shoulder ABduction: 93 Degrees (more tight with generalized tightness) L Shoulder Internal Rotation: (thumb to 2 inferior to inferior angle of scapula) L Shoulder External Rotation: 65 Degrees (pulling ant pecs and more at lateral breast) Education: Education Learning Preferences: Demonstration;Explanation Barriers: None Learning/educational needs: Home exercise program;Plan of Care;Lymphedema Program Education Provided: Yes, see treatment interventions for education provided Education Provided To: Patient Education Mode/Type: Demonstration;Explanation/Discus navneet;Literature/Printed Materials;Performance Response to Education/Teach Back: States/Identifies;Return Demonstration TREATMENT: PT Treatment Interventions: Therapeutic Exercise Evaluation Therapeutic Exercise: 1: *wall shld flex stretch 3 x 30 sec 2: *seated table shld abd stretch 3 x 30 sec 3: *seated table shld ER stretch 3 x 30 sec 4: *supine butterfly stretch 3 x 30 sec 5: *AROM B shld flexion with 30 sec hold at end range x 5 reps 6: *AROM B shld abduction with 30 sec hold at end range x 5 reps Skilled Intervention: Patient was educated in proper exercise technique and purpose for exercises. Skilled judgment was provided in selection of appropriate interventions. Provided written instruction for home exercise program to facilitate proper performance and compliance. Correct performance of therapeutic exercises was facilitated with verbal and visual cuing. Patient education as noted. Billing * Evaluation Low Complexity: 1 Unit Therapeutic Exercise Treatment Minutes: 25 Total Treatment Time Minutes (timed/untimed): 48 Keisha Turner PT documented in this encounter [facility] 07-19-2022 Note Patient Outreach (JULIO OVALLEAV) MEDINA FARRAR ([id number]) 1970 F Date Time Provider Department 07/19/22 NO PCP NETNAV During your visit today, we recorded the following information about you: Keisha Coles Pss 07/19/2022 10:40 AM Signed POPULATION HEALTH NAVIGATION OUTREACH Action/ Patient Outreach: Spoke with patient to schedule in RST. Pt scheduled RST Consult [facility] Breast Rehab therapy. Pt identified by name and : YES, via phone Outreach Outcome/Action Spoke to patient or caregiver: Patient scheduled Did you use a PCP flex slot to schedule this appointment? No Reason for Outreach Care Gap or Scheduling/Wellness visits Payer: Payor: AULTCARE / Plan: AULTCARE PPO / Product Type: PPO / Care Gap Reviewed:: Follow-up appointment Reminder: Reminder note to check Health Maintenance for items below Health Maintenance items due: HEPATITIS B(1 of 3 - 3-dose series) Never done COVID-19 VACCINE(1) Never done HEPATITIS C SCREENING Never done HIV SCREENING Never done DTAP,TDAP,TD(1 - Tdap) Never done COLORECTAL CANCER SCREENING Never done LIPID SCREEN due on 08/17/2018 HPV TESTING due on 01/11/2020 SHINGRIX VACCINE(1 of 2) Never done DEPRESSION ASSESSMENT Never done INFLUENZA(1) due on 04/08/2022 MAMMOGRAM due on 06/12/2022 Navigation Signature: Keisha Coles Pss July 19, 2022 10:37 AM Allergies As of Date: 07/19/2022 (No Known Allergies) Date Reviewed: 07/12/2022 Reviewed by: Padma Palacois LPN - Fully Assessed Prescriptions as of 07/19/2022 - acetaminophen (TYLENOL EXTRA STRENGTH) 500 mg tablet Take 2 tablets by mouth every 6 hours. - escitalopram oxalate (LEXAPRO) 20 mg tablet Take 20 mg by mouth daily at bedtime. - LORazepam (ATIVAN) 1 mg tablet Take one tablet (1 mg), one hour, before procedure. Take additional tablet, if needed, when you arrive at procedure for anxiety. Do not combine with alcohol or other medications. Do not drive while under the influence of this medication. - LACTOBACILLUS ACIDOPHILUS (PROBIOTIC ORAL) Take by mouth as needed. Meds Comments as of 11/20/2007: All medications reviewed November 20, 2007 Hali Cancino [facility] Problem List As Of Date 07/19/2022 Noted Resolved ESOPHAGEAL REFLUX [K21.9] 10/20/2006 Skin lesions, generalized [L98.9] 09/18/2013 Sebaceous cyst [L72.3] 09/18/2013 Abnormal mammogram [R92.8] 09/28/2013 Abnormal uterine bleeding [N93.9] 01/31/2015 Anxiety [F41.9] 10/29/2015 PMS (premenstrual syndrome) [N94.3] 06/10/2016 Atypical lobular hyperplasia (ALH) of right kayla*06/12/2021 Dense breast [R92.2] 06/12/2021 Fibrocystic breast changes of both breasts [N60*06/12/2021 BRCA2 positive [Z15.01, Z15.09] 06/12/2021 Encounter for screening mammogram for high-risk*06/12/2021 Encounter Status:Closed by KEISHA LUIS on 07/19/22 [facility] 07-19-2022 Note HNO ID: [id number] Author: Keisha Bella Service: ? Author Type: ? Type: Progress Notes Filed: 07/19/2022 10:40 AM Note Text: POPULATION HEALTH NAVIGATION OUTREACH Action/FYI Patient Outreach: Spoke with patient to schedule in RST. Pt scheduled RST Consult foir Breast Rehab therapy. Pt identified by name and : YES, via phone Outreach Outcome/Action Spoke to patient or caregiver: Patient scheduled Did you use a PCP flex slot to schedule this appointment? No Reason for Outreach Care Gap or Scheduling/Wellness visits Payer: Payor: AULTCARE / Plan: AULTCARE PPO / Product Type: PPO / Care Gap Reviewed:: Follow-up appointment Reminder: Reminder note to check Health Maintenance for items below Health Maintenance items due: HEPATITIS B(1 of 3 - 3-dose series) Never done COVID-19 VACCINE(1) Never done HEPATITIS C SCREENING Never done HIV SCREENING Never done DTAP,TDAP,TD(1 - Tdap) Never done COLORECTAL CANCER SCREENING Never done LIPID SCREEN due on 08/17/2018 HPV TESTING due on 01/11/2020 SHINGRIX VACCINE(1 of 2) Never done DEPRESSION ASSESSMENT Never done INFLUENZA(1) due on 04/08/2022 MAMMOGRAM due on 06/12/2022 Navigation Signature: Keisha Coles Pss July 19, 2022 10:37 AM [facility] 07-19-2022 History of Presen t illness Narrative POPULATION HEALTH NAVIGATION OUTREACH Action/I Patient Outreach: Spoke with patient to schedule in RST. Pt scheduled RST Consult foir Breast Rehab therapy. Pt identified by name and : YES, via phone Outreach Outcome/Action Spoke to patient or caregiver: Patient scheduled Did you use a PCP flex slot to schedule this appointment? No Reason for Outreach Care Gap or Scheduling/Wellness visits Payer: Payor: AULTCARE / Plan: AULTCARE PPO / Product Type: PPO / Care Gap Reviewed:: Follow-up appointment Reminder: Reminder note to check Health Maintenance for items below Health Maintenance items due: HEPATITIS B(1 of 3 - 3-dose series) Never done COVID-19 VACCINE(1) Never done HEPATITIS C SCREENING Never done HIV SCREENING Never done DTAP,TDAP,TD(1 - Tdap) Never done COLORECTAL CANCER SCREENING Never done LIPID SCREEN due on 08/17/2018 HPV TESTING due on 01/11/2020 SHINGRIX VACCINE(1 of 2) Never done DEPRESSION ASSESSMENT Never done INFLUENZA(1) due on 04/08/2022 MAMMOGRAM due on 06/12/2022 Navigation Signature: Keisha Coles Pss July 19, 2022 10:37 AM documented in this encounter [facility] 07-12-2022 Note HNO ID: [id number] Author: Mariana Sun APRN.LIOR Service: ? Author Type: Nurse Practitioner Type: Progress Notes Filed: 07/12/2022 12:10 PM Note Text: CC: post op HPI: Medina Farrar is a 52 year old female who presents s/p 05/25/22 bilateral breast reconstruction with direct to implant with alloderm ([facility] 375). Started on antibiotics for left breast discoloration and tightness after being seen by breast team in clinic. No fevers. Having pain in the left breast more than the right breast, may have done more activity to warrant this. amoxicillin-clavulanic acid (AUGMENTIN) 875-125 mg per tablet Take 1 tablet by mouth every 12 hours for 7 days. escitalopram oxalate (LEXAPRO) 20 mg tablet Take 20 mg by mouth daily at bedtime. LORazepam (ATIVAN) 1 mg tablet Take one tablet (1 mg), one hour, before procedure. Take additional tablet, if needed, when you arrive at procedure for anxiety. Do not combine with alcohol or other medications. Do not drive while under the influence of this medication. LACTOBACILLUS ACIDOPHILUS (PROBIOTIC ORAL) Take by mouth as needed. acetaminophen (TYLENOL EXTRA STRENGTH) 500 mg tablet Take 2 tablets by mouth every 6 hours. (Patient not taking: Reported on 07/12/2022) Allergies: ALLERGIES No Known Allergies REVIEW OF SYSTEMS As above General: No fever, chills Cardiac: No chest pain, palpitations Respiratory: No cough or shortness of breath All other reviewed and negative other than HPI. PHYSICAL EXAM: Bilateral breasts good symmetry, NAC intact, incisions cdi Lateral breasts under arms will swelling No erythema or warmth noted A/P: Post op As expected, healing well US completed today in clinic and negative for fluid in left breast Tylenol for pain Finish course of antibiotics Call office with any new concerns for infection Ok to use silicone scar sheets/gel on healed incisions -Consult to breast rehab placed. OK to start at 4 weeks post op. Please call [phone] to schedule, change, cancel or confirm an appointment. RTC 1 month, sooner if needed Mariana Sun APRN.CNP [facility] 07-12-2022 Instructions Mariana Sun APRN.CNP - 07/12/2022 10:47 AM EST Tylenol for pain Finish course of antibiotics Call office with any new concerns for infection Ok to use silicone scar sheets/gel to incisions to lighten scars -Consult to breast rehab placed. OK to start at 4 weeks post op. Please call [phone] to schedule, change, cancel or confirm an appointment. documented in this encounter [facility] 07-12-2022 History of Presen t illness Narrative CC: post op HPI: Medina Farrar is a 52 year old female who presents s/p 05/25/22 bilateral breast reconstruction with direct to implant with alloderm ([facility] 375). Started on antibiotics for left breast discoloration and tightness after being seen by breast team in clinic. No fevers. Having pain in the left breast more than the right breast, may have done more activity to warrant this. amoxicillin-clavulanic acid (AUGMENTIN) 875-125 mg per tablet Take 1 tablet by mouth every 12 hours for 7 days. escitalopram oxalate (LEXAPRO) 20 mg tablet Take 20 mg by mouth daily at bedtime. LORazepam (ATIVAN) 1 mg tablet Take one tablet (1 mg), one hour, before procedure. Take additional tablet, if needed, when you arrive at procedure for anxiety. Do not combine with alcohol or other medications. Do not drive while under the influence of this medication. LACTOBACILLUS ACIDOPHILUS (PROBIOTIC ORAL) Take by mouth as needed. acetaminophen (TYLENOL EXTRA STRENGTH) 500 mg tablet Take 2 tablets by mouth every 6 hours. (Patient not taking: Reported on 07/12/2022) Allergies: ALLERGIES No Known Allergies REVIEW OF SYSTEMS As above General: No fever, chills Cardiac: No chest pain, palpitations Respiratory: No cough or shortness of breath All other reviewed and negative other than HPI. PHYSICAL EXAM: Bilateral breasts good symmetry, NAC intact, incisions cdi Lateral breasts under arms will swelling No erythema or warmth noted A/P: Post op As expected, healing well US completed today in clinic and negative for fluid in left breast Tylenol for pain Finish course of antibiotics Call office with any new concerns for infection Ok to use silicone scar sheets/gel on healed incisions -Consult to breast rehab placed. OK to start at 4 weeks post op. Please call [phone] to schedule, change, cancel or confirm an appointment. RTC 1 month, sooner if needed Mariana Sun APRN.LIOR documented in this encounter [facility] 07-07-2022 Note HNO ID: [id number] Author: Judy Crisostomo PA-C Service: ? Author Type: Physician Chocolatier Type: Progress Notes Filed: 07/07/2022 12:38 PM Note Text: REASON FOR TODAY'S VISIT: Patient presents with: Established Patient HISTORY of PRESENT ILLNESS: Medina Farrar is a 52 year old female who is s/p a BILATERAL risk reducing prophylactic nipple sparing mastectomies performed by Dr. Thorne (Breast Surgeon) on 05/25/2022 Reconstruction portion of the surgery, placement of implants, was performed by Dr. Muñoz (Plastic Surgeon) Final pathology results are benign bilaterally BRCA2 positive Underwent a RRSO with negative pathology in 06/2021 HISTORY: Patient was last seen at her post operative appointment on 06/02/2022. Reports she has noticed some tightness/swelling with some increased left skin discoloration since Tuesday. Denies any fever/chills, n/v, malaise, redness, or pus like discharge. States she may have done too much over the weekend and has had her grandchild jumping on her lap recently. Reports her paternal grandmother may have had pancreatic cancer. ROS: HEENT: Denies vision changes or headaches BREAST: Denies palpating any new breast masses, no breast pain, no skin changes, no nipple discharge ABD: Denies any abdominal pain or new changes in bowel habits MUSCULOSKELETAL: Denies any bone, joint or muscle pain EXAMINATION: GEN alert and orientated, well nourished, calm Regional Lymph Nodes There is no concerning supraclavicular, infraclavicular or cervical lymphadenopathy. BREASTS: The patient was examined in the upright and supine position. Left breast slightly larger than right. RIGHT breast surgically absent with implant in place, mild skin discoloration (patient states improving since surgery). No ecchymosis. Soft, no dominant masses, nipple everted, no discharge, no skin changes. No facial grimacing upon palpation. No warmth. RIGHT axilla no palpable axillary lymphadenopathy LEFT breast surgically absent with implant in place, mild skin pink/sidney discoloration (patient states increasing since surgery). No ecchymosis. Soft, no dominant masses, nipple everted, no discharge, no skin changes. No facial grimacing upon palpation. No warmth. RIGHT axilla no palpable axillary lymphadenopathy LEFT axilla no palpable axillary lymphadenopathy ABD soft, non-distended, non-tender, no organomegaly EXT ambulated independently, good ROM of upper extremities, no evidence of lymphedema IMPRESSION: Medina Farrar is a 52 year old female who is s/p a BILATERAL risk reducing prophylactic nipple sparing mastectomies performed by Dr. Thorne (Breast Surgeon) on 05/25/2022 Reconstruction portion of the surgery, placement of implants, was performed by Dr. Muñoz (Plastic Surgeon) Final pathology results were benign bilaterally BRCA2 positive Underwent a RRSO with negative pathology in 06/2021 Possible early breast infection PLAN: Photo shared with Mariana Sun CNP (Plastic team) and antibiotics ere e-scripted to her pharmacy. She will follow-up with the Plastic team next week. Instructed on sign and symptoms of infection,seroma and hematoma. She will call with any new changes. In light of her high risk, Ms. Farrar will return to the care of Sujey Garcia CNP, (Medical Breast Specialist) for a clinic examination in six months. Patient believes her paternal grandmother has a history of pancreatic cancer and therefore, she will call to schedule a consult in GI for pancreatic cancer surveillance (names provided). Discussed the importance of self-breast awareness and healthy lifestyle. Patient instructed on how to perform monthly SBE and report any new findings. Ms. Farrar will follow-up with us on an as needed basis.. She has our names and numbers to stay in touch if she has any questions, concerns or problems in the interim. Judy Crisostomo PA-C cc: Autumn Lucas MD [id number] [place] [id number] [facility] 07-07-2022 Nurse Note Follow up Did patient bring outside records to appt today? : No Last mammogram on: 06/12/21 bilateral Results: see report Is the patient active on [employer] Yes Electronically Signed By: Fay Brambila LPN In Department: [facility] REVIEW OF PATIENT HISTORY: OB History T0 L4 SAB0 IAB0 Ectopic0 Multiple0 Live Births0 Comment: Menarche: [age]; Age at 1st : 25; Premenopausal 05/28/21-1 granddaughter FAMILY HISTORY Adopted: Yes Problem Relation Age of Onset other (adopted) Son Breast Cancer Paternal Aunt 68 Stage 4; at 71 Breast Cancer Maternal Grandmother 80 other (Other) Maternal Grandmother Ovarian or Uterine Cancer PAST MEDICAL HISTORY Diagnosis Date Anxiety Atypical lobular hyperplasia of breast 2015 Dysmenorrhea Excessive or frequent menstruation Heavy periods Gastric ulcer, unspecified as acute or chronic, without mention of hemorrhage or perforation Other abnormal heart sounds Murmur PAST SURGICAL HISTORY Procedure Laterality Date BX BREAST W/DEVICE 1ST LESION STEREOTACTIC GUID Left 10-08-13 BX BREAST W/DEVICE 1ST LESION STEREOTACTIC GUID Right 09-01-15 EXC CYST/ABERRANT BREAST TISSUE OPEN 1/> LESION Right 11/03/2015 2 biopsies HYSTERECTOMY HX 06/23/2021 Uterus remains; ovaries and tubes removed PAST SURGICAL HISTORY OF UMBILICAL HERNIA REPAIR REM LESION NEC,HAND,SCAL<0.5CM 09/29/13 Exc. scalp wens x 5 Social History Tobacco Use Smoking status: Never Smokeless tobacco: Never Vaping Use Vaping Use: Never used Substance Use Topics Alcohol use: Yes Comment: Seldom Drug use: No documented in this encounter [facility] 07-07-2022 History of Presen t illness Narrative REASON FOR TODAY'S VISIT: Patient presents with: Established Patient HISTORY of PRESENT ILLNESS: Medina Farrar is a 52 year old female who is s/p a BILATERAL risk reducing prophylactic nipple sparing mastectomies performed by Dr. Thorne (Breast Surgeon) on 05/25/2022 Reconstruction portion of the surgery, placement of implants, was performed by Dr. Muñoz (Plastic Surgeon) Final pathology results are benign bilaterally BRCA2 positive Underwent a RRSO with negative pathology in 06/2021 HISTORY: Patient was last seen at her post operative appointment on 06/02/2022. Reports she has noticed some tightness/swelling with some increased left skin discoloration since Tuesday. Denies any fever/chills, n/v, malaise, redness, or pus like discharge. States she may have done too much over the weekend and has had her grandchild jumping on her lap recently. Reports her paternal grandmother may have had pancreatic cancer. ROS: HEENT: Denies vision changes or headaches BREAST: Denies palpating any new breast masses, no breast pain, no skin changes, no nipple discharge ABD: Denies any abdominal pain or new changes in bowel habits MUSCULOSKELETAL: Denies any bone, joint or muscle pain EXAMINATION: GEN alert and orientated, well nourished, calm Regional Lymph Nodes There is no concerning supraclavicular, infraclavicular or cervical lymphadenopathy. BREASTS: The patient was examined in the upright and supine position. Left breast slightly larger than right. RIGHT breast surgically absent with implant in place, mild skin discoloration (patient states improving since surgery). No ecchymosis. Soft, no dominant masses, nipple everted, no discharge, no skin changes. No facial grimacing upon palpation. No warmth. RIGHT axilla no palpable axillary lymphadenopathy LEFT breast surgically absent with implant in place, mild skin pink/sidney discoloration (patient states increasing since surgery). No ecchymosis. Soft, no dominant masses, nipple everted, no discharge, no skin changes. No facial grimacing upon palpation. No warmth. RIGHT axilla no palpable axillary lymphadenopathy LEFT axilla no palpable axillary lymphadenopathy ABD soft, non-distended, non-tender, no organomegaly EXT ambulated independently, good ROM of upper extremities, no evidence of lymphedema IMPRESSION: Medina Farrar is a 52 year old female who is s/p a BILATERAL risk reducing prophylactic nipple sparing mastectomies performed by Dr. Thorne (Breast Surgeon) on 05/25/2022 Reconstruction portion of the surgery, placement of implants, was performed by Dr. Muñoz (Plastic Surgeon) Final pathology results were benign bilaterally BRCA2 positive Underwent a RRSO with negative pathology in 06/2021 Possible early breast infection PLAN: Photo shared with Mariana Sun CNP (Plastic team) and antibiotics ere e-scripted to her pharmacy. She will follow-up with the Plastic team next week. Instructed on sign and symptoms of infection,seroma and hematoma. She will call with any new changes. In light of her high risk, Ms. Farrar will return to the care of Sujey Garcia CNP, (Medical Breast Specialist) for a clinic examination in six months. Patient believes her paternal grandmother has a history of pancreatic cancer and therefore, she will call to schedule a consult in GI for pancreatic cancer surveillance (names provided). Discussed the importance of self-breast awareness and healthy lifestyle. Patient instructed on how to perform monthly SBE and report any new findings. Ms. Farrar will follow-up with us on an as needed basis.. She has our names and numbers to stay in touch if she has any questions, concerns or problems in the interim. Judy Crisostomo PA-C cc: Autumn Lucas MD [id number] [id number] documented in this encounter [facility] 07-02-2022 Note HNO ID: [id number] Author: Mariana Sun APRN.LIOR Service: ? Author Type: Nurse Practitioner Type: Progress Notes Filed: 07/02/2022 9:59 AM Note Text: CC: post op This visit was conducted as a virtual visit. HPI: Medina Farrar is a 52 year old female who presents s/p 05/25/22 bilateral breast reconstruction with direct to implant with alloderm ([facility]). Denies SANDS of infection Time post op: 1 month Pain is controlled Surgical bra is rubbing underneath right breast and causing irritation and redness, worse at the end of the day acetaminophen (TYLENOL EXTRA STRENGTH) 500 mg tablet Take 2 tablets by mouth every 6 hours. silver sulfADIAZINE (SILVADENE,THERMAZENE) 1 % cream Apply 1 application to affected area twice daily. Wipe away excess before applying new layer. Apply liberally over incisions as instructed. escitalopram oxalate (LEXAPRO) 20 mg tablet Take 20 mg by mouth daily at bedtime. LORazepam (ATIVAN) 1 mg tablet Take one tablet (1 mg), one hour, before procedure. Take additional tablet, if needed, when you arrive at procedure for anxiety. Do not combine with alcohol or other medications. Do not drive while under the influence of this medication. LACTOBACILLUS ACIDOPHILUS (PROBIOTIC ORAL) Take by mouth as needed. Allergies: ALLERGIES No Known Allergies REVIEW OF SYSTEMS As above General: No fever, chills Cardiac: No chest pain, palpitations Respiratory: No cough or shortness of breath All other reviewed and negative other than HPI. PHYSICAL EXAM: Bilateral breasts good symmetry, NAC intact, incisions cdi A/P: Post op As expected, healing well -Shower regularly to keep the incisions clean and inspect for signs of infection (due to decreased sensation). -No water submersion/baths until all incisions fully healed, typically this takes 6 weeks. -Walking is encouraged, this helps reduce swelling and lowers the chance of blood clots. -Activity restrictions reviewed with patient. -No lifting/pushing/pulling greater than 10 lbs for 6 weeks after surgery. 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 Do not perform yard work or gardening. -Consult to breast rehab placed. OK to start at 4 weeks post op. Please call [phone] to schedule, change, cancel or confirm an appointment. RTC 1 month, sooner if needed Virtual visit lasted for 20 minutes Mariana Sun APRN.[facility] 07-02-2022 History of Presen t illness Narrative CC: post op This visit was conducted as a virtual visit. HPI: Medina Farrar is a 52 year old female who presents s/p 05/25/22 bilateral breast reconstruction with direct to implant with alloderm ([facility] 375). Denies S&S of infection Time post op: 1 month Pain is controlled Surgical bra is rubbing underneath right breast and causing irritation and redness, worse at the end of the day acetaminophen (TYLENOL EXTRA STRENGTH) 500 mg tablet Take 2 tablets by mouth every 6 hours. silver sulfADIAZINE (SILVADENE,THERMAZENE) 1 % cream Apply 1 application to affected area twice daily. Wipe away excess before applying new layer. Apply liberally over incisions as instructed. escitalopram oxalate (LEXAPRO) 20 mg tablet Take 20 mg by mouth daily at bedtime. LORazepam (ATIVAN) 1 mg tablet Take one tablet (1 mg), one hour, before procedure. Take additional tablet, if needed, when you arrive at procedure for anxiety. Do not combine with alcohol or other medications. Do not drive while under the influence of this medication. LACTOBACILLUS ACIDOPHILUS (PROBIOTIC ORAL) Take by mouth as needed. Allergies: ALLERGIES No Known Allergies REVIEW OF SYSTEMS As above General: No fever, chills Cardiac: No chest pain, palpitations Respiratory: No cough or shortness of breath All other reviewed and negative other than HPI. PHYSICAL EXAM: Bilateral breasts good symmetry, NAC intact, incisions cdi A/P: Post op As expected, healing well -Shower regularly to keep the incisions clean and inspect for signs of infection (due to decreased sensation). -No water submersion/baths until all incisions fully healed, typically this takes 6 weeks. -Walking is encouraged, this helps reduce swelling and lowers the chance of blood clots. -Activity restrictions reviewed with patient. -No lifting/pushing/pulling greater than 10 lbs for 6 weeks after surgery. 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 Do not perform yard work or gardening. -Consult to breast rehab placed. OK to start at 4 weeks post op. Please call [phone] to schedule, change, cancel or confirm an appointment. RTC 1 month, sooner if needed Virtual visit lasted for 20 minutes Mariana Sun APRN.LIOR documented in this encounter [facility] 06-28-2022 Note HNO ID: [id number] Author: Mariana Sun APRN.LIOR Service: ? Author Type: Nurse Practitioner Type: Progress Notes Filed: 06/28/2022 1:47 PM Note Text: CC: post op This visit was conducted as a virtual visit. HPI: Medina Farrar is a 52 year old female who presents s/p 05/25/22 bilateral breast reconstruction with direct to implant with alloderm ([facility] 375). Denies SANDS of infection Time post op: 1 month Pain is controlled ondansetron (ZOFRAN) 4 mg tablet Take 1 tablet by mouth every 8 hours as needed for nausea/vomiting. oxyCODONE IR (ROXICODONE) 5 mg immediate release tablet Take 1 tablet by mouth every 8 hours as needed for pain. acetaminophen (TYLENOL EXTRA STRENGTH) 500 mg tablet Take 2 tablets by mouth every 6 hours. ibuprofen (MOTRIN) 600 mg tablet Take 1 tablet by mouth every 6 hours. Can start day after surgery. Can alternate with tylenol (i.e. taking one or the other every 3 hrs). docusate sodium (COLACE) 100 mg capsule Take 1 capsule by mouth twice daily as needed for constipation. methocarbamol (ROBAXIN) 750 mg tablet Take 1 tablet by mouth three times daily. silver sulfADIAZINE (SILVADENE,THERMAZENE) 1 % cream Apply 1 application to affected area twice daily. Wipe away excess before applying new layer. Apply liberally over incisions as instructed. escitalopram oxalate (LEXAPRO) 20 mg tablet Take 20 mg by mouth daily at bedtime. LORazepam (ATIVAN) 1 mg tablet Take one tablet (1 mg), one hour, before procedure. Take additional tablet, if needed, when you arrive at procedure for anxiety. Do not combine with alcohol or other medications. Do not drive while under the influence of this medication. LACTOBACILLUS ACIDOPHILUS (PROBIOTIC ORAL) Take by mouth as needed. Allergies: ALLERGIES No Known Allergies REVIEW OF SYSTEMS As above General: No fever, chills Cardiac: No chest pain, palpitations Respiratory: No cough or shortness of breath All other reviewed and negative other than HPI. PHYSICAL EXAM: Virtual- exam deferred A/P: Post op As expected, healing well Patient will send photos via [employer] if needed -Shower regularly to keep the incisions clean and inspect for signs of infection (due to decreased sensation). -No water submersion/baths until all incisions fully healed, typically this takes 6 weeks. -Walking is encouraged, this helps reduce swelling and lowers the chance of blood clots. -Activity restrictions reviewed with patient. Okay to raise arm above head at 2 weeks if drains have all been removed and you do not have any wound healing issues. -No lifting/pushing/pulling greater than 10 lbs for 6 weeks after surgery. 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 Do not perform yard work or gardening. -Okay to sleep on your back and lie flat, do not sleep on the surgical side 3-4 weeks after recent procedure -Okay for tylenol alternating with ibuprofen for pain control (do not exceed 4 g tylenol in a 24 hour period, okay for ibuprofen 600-800 mg every 8 hours as needed for pain) -Okay for driving if not taking any narcotic pain medication and drains have been removed -continue silvadene ointment to incisions and cover with dry dressing until healed -Continue to wear surgical bra. -Consult to breast rehab placed. OK to start at 4 weeks post op. Please call [phone] to schedule, change, cancel or confirm an appointment. RTC 1 month, sooner if needed Mariana Sun APRN.[facility] 06-28-2022 History of Presen t illness Narrative CC: post op This visit was conducted as a virtual visit. HPI: Medina Farrar is a 52 year old female who presents s/p 05/25/22 bilateral breast reconstruction with direct to implant with alloderm ([facility] 375). Denies S&S of infection Time post op: 1 month Pain is controlled ondansetron (ZOFRAN) 4 mg tablet Take 1 tablet by mouth every 8 hours as needed for nausea/vomiting. oxyCODONE IR (ROXICODONE) 5 mg immediate release tablet Take 1 tablet by mouth every 8 hours as needed for pain. acetaminophen (TYLENOL EXTRA STRENGTH) 500 mg tablet Take 2 tablets by mouth every 6 hours. ibuprofen (MOTRIN) 600 mg tablet Take 1 tablet by mouth every 6 hours. Can start day after surgery. Can alternate with tylenol (i.e. taking one or the other every 3 hrs). docusate sodium (COLACE) 100 mg capsule Take 1 capsule by mouth twice daily as needed for constipation. methocarbamol (ROBAXIN) 750 mg tablet Take 1 tablet by mouth three times daily. silver sulfADIAZINE (SILVADENE,THERMAZENE) 1 % cream Apply 1 application to affected area twice daily. Wipe away excess before applying new layer. Apply liberally over incisions as instructed. escitalopram oxalate (LEXAPRO) 20 mg tablet Take 20 mg by mouth daily at bedtime. LORazepam (ATIVAN) 1 mg tablet Take one tablet (1 mg), one hour, before procedure. Take additional tablet, if needed, when you arrive at procedure for anxiety. Do not combine with alcohol or other medications. Do not drive while under the influence of this medication. LACTOBACILLUS ACIDOPHILUS (PROBIOTIC ORAL) Take by mouth as needed. Allergies: ALLERGIES No Known Allergies REVIEW OF SYSTEMS As above General: No fever, chills Cardiac: No chest pain, palpitations Respiratory: No cough or shortness of breath All other reviewed and negative other than HPI. PHYSICAL EXAM: Virtual- exam deferred A/P: Post op As expected, healing well Patient will send photos via mychart if needed -Shower regularly to keep the incisions clean and inspect for signs of infection (due to decreased sensation). -No water submersion/baths until all incisions fully healed, typically this takes 6 weeks. -Walking is encouraged, this helps reduce swelling and lowers the chance of blood clots. -Activity restrictions reviewed with patient. Okay to raise arm above head at 2 weeks if drains have all been removed and you do not have any wound healing issues. -No lifting/pushing/pulling greater than 10 lbs for 6 weeks after surgery. 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 Do not perform yard work or gardening. -Okay to sleep on your back and lie flat, do not sleep on the surgical side 3-4 weeks after recent procedure -Okay for tylenol alternating with ibuprofen for pain control (do not exceed 4 g tylenol in a 24 hour period, okay for ibuprofen 600-800 mg every 8 hours as needed for pain) -Okay for driving if not taking any narcotic pain medication and drains have been removed -continue silvadene ointment to incisions and cover with dry dressing until healed -Continue to wear surgical bra. -Consult to breast rehab placed. OK to start at 4 weeks post op. Please call [phone] to schedule, change, cancel or confirm an appointment. RTC 1 month, sooner if needed Mariana Sun APRN.LIOR documented in this encounter [facility] 06-10-2022 Note HNO ID: [id number] Author: Mariana Sun APRN.CNP Service: ? Author Type: Nurse Practitioner Type: Progress Notes Filed: 06/14/2022 3:47 PM Note Text: CC: post op HPI: Medina Farrar is a 52 year old female who presents s/p 05/25/22 bilateral breast reconstruction with direct to implant with alloderm ([facility] 375). Denies SANDS of infection Drain ready to be removed acetaminophen (TYLENOL EXTRA STRENGTH) 500 mg tablet Take 2 tablets by mouth every 6 hours. docusate sodium (COLACE) 100 mg capsule Take 1 capsule by mouth twice daily as needed for constipation. methocarbamol (ROBAXIN) 750 mg tablet Take 1 tablet by mouth three times daily. silver sulfADIAZINE (SILVADENE,THERMAZENE) 1 % cream Apply 1 application to affected area twice daily. Wipe away excess before applying new layer. Apply liberally over incisions as instructed. escitalopram oxalate (LEXAPRO) 20 mg tablet Take 20 mg by mouth daily at bedtime. LORazepam (ATIVAN) 1 mg tablet Take one tablet (1 mg), one hour, before procedure. Take additional tablet, if needed, when you arrive at procedure for anxiety. Do not combine with alcohol or other medications. Do not drive while under the influence of this medication. LACTOBACILLUS ACIDOPHILUS (PROBIOTIC ORAL) Take by mouth as needed. ondansetron (ZOFRAN) 4 mg tablet Take 1 tablet by mouth every 8 hours as needed for nausea/vomiting. oxyCODONE IR (ROXICODONE) 5 mg immediate release tablet Take 1 tablet by mouth every 8 hours as needed for pain. ibuprofen (MOTRIN) 600 mg tablet Take 1 tablet by mouth every 6 hours. Can start day after surgery. Can alternate with tylenol (i.e. taking one or the other every 3 hrs). Allergies: ALLERGIES No Known Allergies REVIEW OF SYSTEMS As above General: No fever, chills Cardiac: No chest pain, palpitations, or leg swelling Respiratory: No cough or shortness of breath GI: No N/V or diarrhea All other reviewed and negative other than HPI. PHYSICAL EXAM: LMP 05/28/2021 (Exact Date) GEN: Well appearing, alert, in no acute distress, well-hydrated, well nourished. CHEST: Regular RR, no cough or dyspnea BREAST: bilateral breast soft, non-tender, with no evidence of exudate bilateral breast incision well approximated, c/d/i No seroma, no hematoma Mild post operative swelling Mild post operative ecchymosis No s/s of infection KATHERINE drains SS drainage, patent A/P: Post op As expected, healing well -KATHERINE drain removed X 2, gauze applied. Okay to shower in 24 hours. Apply antibiotic ointment to drain sites and cover with band aid until they are healed. -Shower regularly to keep the incisions clean and inspect for signs of infection (due to decreased sensation). -No water submersion/baths until all incisions fully healed, typically this takes 6 weeks. -Walking is encouraged, this helps reduce swelling and lowers the chance of blood clots. -Activity restrictions reviewed with patient. Okay to raise arm above head at 2 weeks if drains have all been removed and you do not have any wound healing issues. -No lifting/pushing/pulling greater than 10 lbs for 6 weeks after surgery. 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 Do not perform yard work or gardening. -Okay to sleep on your back and lie flat, do not sleep on the surgical side 3-4 weeks after recent procedure -Okay for tylenol alternating with ibuprofen for pain control (do not exceed 4 g tylenol in a 24 hour period, okay for ibuprofen 600-800 mg every 8 hours as needed for pain) -Okay for driving if not taking any narcotic pain medication and drains have been removed -continue silvadene ointment to incisions and cover with dry dressing until healed -Continue to wear surgical bra. -Consult to breast rehab placed. OK to start at 4 weeks post op. Please call [phone] to schedule, change, cancel or confirm an appointment. RTC 2 week virtual, sooner if needed Mariana Sun APRN.LIOR [facility] 06-10-2022 Instructions Mariana Sun APRN.LIOR - 06/10/2022 11:18 AM EDT -KATHERINE drain removed X 2, gauze applied. Okay to shower in 24 hours. Apply antibiotic ointment to drain sites and cover with band aid until they are healed. -Shower regularly to keep the incisions clean and inspect for signs of infection (due to decreased sensation). -No water submersion/baths until all incisions fully healed, typically this takes 6 weeks. -Walking is encouraged, this helps reduce swelling and lowers the chance of blood clots. -Activity restrictions reviewed with patient. Okay to raise arm above head at 2 weeks if drains have all been removed and you do not have any wound healing issues. -No lifting/pushing/pulling greater than 10 lbs for 6 weeks after surgery. 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 Do not perform yard work or gardening. -Okay to sleep on your back and lie flat, do not sleep on the surgical side 3-4 weeks after recent procedure -Okay for tylenol alternating with ibuprofen for pain control (do not exceed 4 g tylenol in a 24 hour period, okay for ibuprofen 600-800 mg every 8 hours as needed for pain) -Okay for driving if not taking any narcotic pain medication and drains have been removed -continue silvadene ointment to incisions and cover with dry dressing until healed -Continue to wear surgical bra. -Consult to breast rehab placed. OK to start at 4 weeks post op. Please call [phone] to schedule, change, cancel or confirm an appointment. RTC 2 week virtual, sooner if needed documented in this encounter [facility] 06-10-2022 History of Presen t illness Narrative CC: post op HPI: Medina Farrar is a 52 year old female who presents s/p 05/25/22 bilateral breast reconstruction with direct to implant with alloderm ([facility] 375). Denies S&S of infection Drain ready to be removed acetaminophen (TYLENOL EXTRA STRENGTH) 500 mg tablet Take 2 tablets by mouth every 6 hours. docusate sodium (COLACE) 100 mg capsule Take 1 capsule by mouth twice daily as needed for constipation. methocarbamol (ROBAXIN) 750 mg tablet Take 1 tablet by mouth three times daily. silver sulfADIAZINE (SILVADENE,THERMAZENE) 1 % cream Apply 1 application to affected area twice daily. Wipe away excess before applying new layer. Apply liberally over incisions as instructed. escitalopram oxalate (LEXAPRO) 20 mg tablet Take 20 mg by mouth daily at bedtime. LORazepam (ATIVAN) 1 mg tablet Take one tablet (1 mg), one hour, before procedure. Take additional tablet, if needed, when you arrive at procedure for anxiety. Do not combine with alcohol or other medications. Do not drive while under the influence of this medication. LACTOBACILLUS ACIDOPHILUS (PROBIOTIC ORAL) Take by mouth as needed. ondansetron (ZOFRAN) 4 mg tablet Take 1 tablet by mouth every 8 hours as needed for nausea/vomiting. oxyCODONE IR (ROXICODONE) 5 mg immediate release tablet Take 1 tablet by mouth every 8 hours as needed for pain. ibuprofen (MOTRIN) 600 mg tablet Take 1 tablet by mouth every 6 hours. Can start day after surgery. Can alternate with tylenol (i.e. taking one or the other every 3 hrs). Allergies: ALLERGIES No Known Allergies REVIEW OF SYSTEMS As above General: No fever, chills Cardiac: No chest pain, palpitations, or leg swelling Respiratory: No cough or shortness of breath GI: No N/V or diarrhea All other reviewed and negative other than HPI. PHYSICAL EXAM: [facility] 05/28/2021 (Exact Date) GEN: Well appearing, alert, in no acute distress, well-hydrated, well nourished. CHEST: Regular RR, no cough or dyspnea BREAST: bilateral breast soft, non-tender, with no evidence of exudate bilateral breast incision well approximated, c/d/i No seroma, no hematoma Mild post operative swelling Mild post operative ecchymosis No s/s of infection KATHERINE drains SS drainage, patent A/P: Post op As expected, healing well -KATHERINE drain removed X 2, gauze applied. Okay to shower in 24 hours. Apply antibiotic ointment to drain sites and cover with band aid until they are healed. -Shower regularly to keep the incisions clean and inspect for signs of infection (due to decreased sensation). -No water submersion/baths until all incisions fully healed, typically this takes 6 weeks. -Walking is encouraged, this helps reduce swelling and lowers the chance of blood clots. -Activity restrictions reviewed with patient. Okay to raise arm above head at 2 weeks if drains have all been removed and you do not have any wound healing issues. -No lifting/pushing/pulling greater than 10 lbs for 6 weeks after surgery. 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 Do not perform yard work or gardening. -Okay to sleep on your back and lie flat, do not sleep on the surgical side 3-4 weeks after recent procedure -Okay for tylenol alternating with ibuprofen for pain control (do not exceed 4 g tylenol in a 24 hour period, okay for ibuprofen 600-800 mg every 8 hours as needed for pain) -Okay for driving if not taking any narcotic pain medication and drains have been removed -continue silvadene ointment to incisions and cover with dry dressing until healed -Continue to wear surgical bra. -Consult to breast rehab placed. OK to start at 4 weeks post op. Please call [phone] to schedule, change, cancel or confirm an appointment. RTC 2 week virtual, sooner if needed Mariana Sun APRN.LIOR documented in this encounter [facility] 06-03-2022 Note HNO ID: [id number] Author: Mariana Sun APRN.CNP Service: ? Author Type: Nurse Practitioner Type: Progress Notes Filed: 06/03/2022 4:38 PM Note Text: CC: post op HPI: Medina Farrar is a 52 year old female who presents s/p 05/25/22 bilateral breast reconstruction with direct to implant with alloderm ([facility] 375). Time post op: 9 days Taking tylenol and oxycodone for pain, also using robaxin Out of oxycodone and having trouble sleeping at night and getting comfortable Denies SANDS of infection ondansetron (ZOFRAN) 4 mg tablet Take 1 tablet by mouth every 8 hours as needed for nausea/vomiting. acetaminophen (TYLENOL EXTRA STRENGTH) 500 mg tablet Take 2 tablets by mouth every 6 hours. ibuprofen (MOTRIN) 600 mg tablet Take 1 tablet by mouth every 6 hours. Can start day after surgery. Can alternate with tylenol (i.e. taking one or the other every 3 hrs). docusate sodium (COLACE) 100 mg capsule Take 1 capsule by mouth twice daily as needed for constipation. methocarbamol (ROBAXIN) 750 mg tablet Take 1 tablet by mouth three times daily. silver sulfADIAZINE (SILVADENE,THERMAZENE) 1 % cream Apply 1 application to affected area twice daily. Wipe away excess before applying new layer. Apply liberally over incisions as instructed. cefADROxil (DURICEF) 500 mg capsule Take 1 capsule by mouth twice daily for 14 days. Continue taking until all drains removed or told otherwise by your surgeon. escitalopram oxalate (LEXAPRO) 20 mg tablet Take 20 mg by mouth daily at bedtime. LORazepam (ATIVAN) 1 mg tablet Take one tablet (1 mg), one hour, before procedure. Take additional tablet, if needed, when you arrive at procedure for anxiety. Do not combine with alcohol or other medications. Do not drive while under the influence of this medication. LACTOBACILLUS ACIDOPHILUS (PROBIOTIC ORAL) Take by mouth as needed. oxyCODONE IR (ROXICODONE) 5 mg immediate release tablet Take 1 tablet by mouth every 8 hours as needed for pain. Allergies: ALLERGIES No Known Allergies REVIEW OF SYSTEMS As above General: No fever, chills Cardiac: No chest pain, palpitations, or leg swelling Respiratory: No cough or shortness of breath GI: No N/V or diarrhea All other reviewed and negative other than HPI. PHYSICAL EXAM: LMP 05/28/2021 (Exact Date) GEN: Well appearing, alert, in no acute distress, well-hydrated, well nourished. CHEST: Regular RR, no cough or dyspnea BREAST: bilateral breast soft, non-tender, with no evidence of exudate bilateral breast incision well approximated, c/d/i No seroma, no hematoma Mild post operative swelling Mild post operative ecchymosis No s/s of infection KATHERINE drains SS drainage, patent A/P: Post op As expected, healing well -KATHERINE drain removed X 2, gauze applied. Okay to shower in 24 hours. Apply antibiotic ointment to drain sites and cover with band aid until they are healed. -Shower regularly to keep the incisions clean and inspect for signs of infection (due to decreased sensation). -No water submersion/baths until all incisions fully healed, typically this takes 6 weeks. -Walking is encouraged, this helps reduce swelling and lowers the chance of blood clots. -Activity restrictions reviewed with patient. Okay to raise arm above head at 2 weeks if drains have all been removed and you do not have any wound healing issues. -No lifting/pushing/pulling greater than 10 lbs for 6 weeks after surgery. 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 Do not perform yard work or gardening. -Okay to sleep on your back and lie flat, do not sleep on the surgical side 3-4 weeks after recent procedure -Okay for tylenol alternating with ibuprofen for pain control (do not exceed 4 g tylenol in a 24 hour period, okay for ibuprofen 600-800 mg every 8 hours as needed for pain) -Okay for driving if not taking any narcotic pain medication and drains have been removed -continue silvadene ointment to incisions and cover with dry dressing until healed -Continue to wear surgical bra. -Consult to breast rehab placed. OK to start at 4 weeks post op. Please call [phone] to schedule, change, cancel or confirm an appointment. RTC for drain removal Mariana Sun APRN.CNP [facility] 06-03-2022 Instructions Mariana Sun APRN.LIOR - 06/03/2022 10:22 AM EDT -KATHERINE drain removed X 2, gauze applied. Okay to shower in 24 hours. Apply antibiotic ointment to drain sites and cover with band aid until they are healed. -Shower regularly to keep the incisions clean and inspect for signs of infection (due to decreased sensation). -No water submersion/baths until all incisions fully healed, typically this takes 6 weeks. -Walking is encouraged, this helps reduce swelling and lowers the chance of blood clots. -Activity restrictions reviewed with patient. Okay to raise arm above head at 2 weeks if drains have all been removed and you do not have any wound healing issues. -No lifting/pushing/pulling greater than 10 lbs for 6 weeks after surgery. 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 Do not perform yard work or gardening. -Okay to sleep on your back and lie flat, do not sleep on the surgical side 3-4 weeks after recent procedure -Okay for tylenol alternating with ibuprofen for pain control (do not exceed 4 g tylenol in a 24 hour period, okay for ibuprofen 600-800 mg every 8 hours as needed for pain) -Okay for driving if not taking any narcotic pain medication and drains have been removed -continue silvadene ointment to incisions and cover with dry dressing until healed -Continue to wear surgical bra. -Consult to breast rehab placed. OK to start at 4 weeks post op. Please call [phone] to schedule, change, cancel or confirm an appointment. documented in this encounter [facility] 06-03-2022 History of Presen t illness Narrative CC: post op HPI: Medina Farrar is a 52 year old female who presents s/p 05/25/22 bilateral breast reconstruction with direct to implant with alloderm ([facility] 375). Time post op: 9 days Taking tylenol and oxycodone for pain, also using robaxin Out of oxycodone and having trouble sleeping at night and getting comfortable Denies S&S of infection ondansetron (ZOFRAN) 4 mg tablet Take 1 tablet by mouth every 8 hours as needed for nausea/vomiting. acetaminophen (TYLENOL EXTRA STRENGTH) 500 mg tablet Take 2 tablets by mouth every 6 hours. ibuprofen (MOTRIN) 600 mg tablet Take 1 tablet by mouth every 6 hours. Can start day after surgery. Can alternate with tylenol (i.e. taking one or the other every 3 hrs). docusate sodium (COLACE) 100 mg capsule Take 1 capsule by mouth twice daily as needed for constipation. methocarbamol (ROBAXIN) 750 mg tablet Take 1 tablet by mouth three times daily. silver sulfADIAZINE (SILVADENE,THERMAZENE) 1 % cream Apply 1 application to affected area twice daily. Wipe away excess before applying new layer. Apply liberally over incisions as instructed. cefADROxil (DURICEF) 500 mg capsule Take 1 capsule by mouth twice daily for 14 days. Continue taking until all drains removed or told otherwise by your surgeon. escitalopram oxalate (LEXAPRO) 20 mg tablet Take 20 mg by mouth daily at bedtime. LORazepam (ATIVAN) 1 mg tablet Take one tablet (1 mg), one hour, before procedure. Take additional tablet, if needed, when you arrive at procedure for anxiety. Do not combine with alcohol or other medications. Do not drive while under the influence of this medication. LACTOBACILLUS ACIDOPHILUS (PROBIOTIC ORAL) Take by mouth as needed. oxyCODONE IR (ROXICODONE) 5 mg immediate release tablet Take 1 tablet by mouth every 8 hours as needed for pain. Allergies: ALLERGIES No Known Allergies REVIEW OF SYSTEMS As above General: No fever, chills Cardiac: No chest pain, palpitations, or leg swelling Respiratory: No cough or shortness of breath GI: No N/V or diarrhea All other reviewed and negative other than HPI. PHYSICAL EXAM: LMP 05/28/2021 (Exact Date) GEN: Well appearing, alert, in no acute distress, well-hydrated, well nourished. CHEST: Regular RR, no cough or dyspnea BREAST: bilateral breast soft, non-tender, with no evidence of exudate bilateral breast incision well approximated, c/d/i No seroma, no hematoma Mild post operative swelling Mild post operative ecchymosis No s/s of infection KATHERINE drains SS drainage, patent A/P: Post op As expected, healing well -KATHERINE drain removed X 2, gauze applied. Okay to shower in 24 hours. Apply antibiotic ointment to drain sites and cover with band aid until they are healed. -Shower regularly to keep the incisions clean and inspect for signs of infection (due to decreased sensation). -No water submersion/baths until all incisions fully healed, typically this takes 6 weeks. -Walking is encouraged, this helps reduce swelling and lowers the chance of blood clots. -Activity restrictions reviewed with patient. Okay to raise arm above head at 2 weeks if drains have all been removed and you do not have any wound healing issues. -No lifting/pushing/pulling greater than 10 lbs for 6 weeks after surgery. 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 Do not perform yard work or gardening. -Okay to sleep on your back and lie flat, do not sleep on the surgical side 3-4 weeks after recent procedure -Okay for tylenol alternating with ibuprofen for pain control (do not exceed 4 g tylenol in a 24 hour period, okay for ibuprofen 600-800 mg every 8 hours as needed for pain) -Okay for driving if not taking any narcotic pain medication and drains have been removed -continue silvadene ointment to incisions and cover with dry dressing until healed -Continue to wear surgical bra. -Consult to breast rehab placed. OK to start at 4 weeks post op. Please call [phone] to schedule, change, cancel or confirm an appointment. RTC for drain removal Mariana Sun APRN.CNP documented in this encounter [facility] 06-02-2022 Note HNO ID: [id number] Author: Judy Crisostomo PA-C Service: ? Author Type: Physician Chocolatier Type: Progress Notes Filed: 06/02/2022 12:36 PM Note Text: REASON FOR TODAY'S VISIT: Post op VIRTUAL VISIT This visit was conducted as a virtual visit. The patient consented to the encounter via telephone. Providers present during the telephone medicine encounter was myself HISTORY of PRESENT ILLNESS: Medina Farrar is a 52 year old female who is s/p a BILATERAL risk reducing prophylactic nipple sparing mastectomies performed by Dr. Thorne (Breast Surgeon) on 05/25/2022 Reconstruction portion of the surgery, placement of implants, was performed by Dr. Muñoz (Plastic Surgeon). Continues on antibiotics as prescribed daily. She reports < 30ml of daily drainage output from 2/4 the drains for the past 2 days. She reports some bruising which is improving daily. Using Silvadene as prescribed on incisions. Denies any redness, swelling or discharge from the incision. She denies any fever or chills. Pain of the surgical site is reported as moderate, but intermittent (just switched from narcotic medication to OTC) SURGICAL PATHOLOGY: FINAL DIAGNOSIS A. Right breast, nipple sparing mastectomy: - Breast tissue with usual ductal hyperplasia, apocrine microcysts, stromal fibrosis and columnar cell change. - Hourglass and ribbon clip identified. B. Left breast, nipple sparing mastectomy: - Breast tissue with stromal fibrosis, usual ductal hyperplasia, sclerosing adenosis, and fibroadenomatous type change. - Biopsy clip identified. C. Left nipple core, biopsy: - Breast tissue with large ducts and cautery artifact. D. Right nipple core, biopsy: - Breast tissue with large ducts. 05/28/2022 ST EXAMINATION: Deferred (seeing Plastic team tomorrow) IMPRESSION: Medina Farrar is a 52 year old female who is s/p a BILATERAL risk reducing prophylactic nipple sparing mastectomies performed by Dr. Thorne (Breast Surgeon) on 05/25/2022 Reconstruction portion of the surgery, placement of implants, was performed by Dr. Muñoz (Plastic Surgeon) Final pathology results are benign bilaterally History of atypical lobular hyperplasia. BRCA2 positive Underwent a RRSO with negative pathology in 06/2021 PLAN: Pathology report reviewed by (Breast Surgeon) and with the patient. Instructions for wound management, the signs and symptoms of infection, and seroma development were reviewed with the patient. All questions were answered and she had no further concerns. She will follow-up with Mariana Sun CNP, (Plastic Surgery) as scheduled tomorrow, for post-op management of breast reconstruction. Ms. Farrar will follow-up with us in 1 month. She is encouraged to follow-up with her primary care physician, Autumn Lucas MD. She has our names and numbers to stay in touch if she has any questions, concerns or problems in the interim. Judy Crisostomo PA-C cc: Autumn Lucas MD [address] [address] [facility] 06-02-2022 History of Presen t illness Narrative REASON FOR TODAY'S VISIT: Post op VIRTUAL VISIT This visit was conducted as a virtual visit. The patient consented to the encounter via telephone. Providers present during the telephone medicine encounter was myself HISTORY of PRESENT ILLNESS: Medina Farrar is a 52 year old female who is s/p a BILATERAL risk reducing prophylactic nipple sparing mastectomies performed by Dr. Thorne (Breast Surgeon) on 05/25/2022 Reconstruction portion of the surgery, placement of implants, was performed by Dr. Muñoz (Plastic Surgeon). Continues on antibiotics as prescribed daily. She reports < 30ml of daily drainage output from 2/4 the drains for the past 2 days. She reports some bruising which is improving daily. Using Silvadene as prescribed on incisions. Denies any redness, swelling or discharge from the incision. She denies any fever or chills. Pain of the surgical site is reported as moderate, but intermittent (just switched from narcotic medication to OTC) SURGICAL PATHOLOGY: FINAL DIAGNOSIS A. Right breast, nipple sparing mastectomy: - Breast tissue with usual ductal hyperplasia, apocrine microcysts, stromal fibrosis and columnar cell change. - Hourglass and ribbon clip identified. B. Left breast, nipple sparing mastectomy: - Breast tissue with stromal fibrosis, usual ductal hyperplasia, sclerosing adenosis, and fibroadenomatous type change. - Biopsy clip identified. C. Left nipple core, biopsy: - Breast tissue with large ducts and cautery artifact. D. Right nipple core, biopsy: - Breast tissue with large ducts. JR 05/28/2022 ST EXAMINATION: Deferred (seeing Plastic team tomorrow) IMPRESSION: Medina Farrar is a 52 year old female who is s/p a BILATERAL risk reducing prophylactic nipple sparing mastectomies performed by Dr. Thorne (Breast Surgeon) on 05/25/2022 Reconstruction portion of the surgery, placement of implants, was performed by Dr. Muñoz (Plastic Surgeon) Final pathology results are benign bilaterally History of atypical lobular hyperplasia. BRCA2 positive Underwent a RRSO with negative pathology in 06/2021 PLAN: Pathology report reviewed by (Breast Surgeon) and with the patient. Instructions for wound management, the signs and symptoms of infection, and seroma development were reviewed with the patient. All questions were answered and she had no further concerns. She will follow-up with Mariana Sun CNP, (Plastic Surgery) as scheduled tomorrow, for post-op management of breast reconstruction. Ms. Farrar will follow-up with us in 1 month. She is encouraged to follow-up with her primary care physician, Autumn Lucas MD. She has our names and numbers to stay in touch if she has any questions, concerns or problems in the interim. Judy Crisostomo PA-C cc: Autumn Lucas MD [address] [id number] documented in this encounter [facility] 06-01-2022 Miscellaneous Notes Breast nurse navigation call placed to patient to assess how she is doing post-op. Noted that she spoke with plastic surgery office yesterday. Patient restarted her Lexapro. No fevers. Medina states she is feeling better from yesterday. Eating well, moving around better. Taking Tylenol during the day for pain relief and the Oxycodone at night. This is effective. Medina called Dr. Muñoz's office today requesting a refill, awaiting an answer. Confirmed upcoming appointments with Judy Crisostomo and Dr. Muñoz's office. Encouraged patient to call with any questions/needs. Yessy Olmstead RN documented in this encounter [facility] 05-28-2022 Miscellaneous Notes Breast nurse navigator placed follow-up call to Medina today to assess pain management. She has decreased taking the Oxycodone to every 8 hours per the discharge instructions. She is also taking Tylenol and the Robaxin as prescribed. When sitting Medina reports the pain as a 1/10. When moving it can increase up to a 8/10. She feels pain at the drain insertion site on the right side when she moves. REviewed how to appropriately take her prescribed medications, patient verbalizes understanding. She does think pain is slightly improved from yesterday. Message send to surgeon's office. Yessy Olmstead RN documented in this encounter [facility] 05-27-2022 Miscellaneous Notes BREAST HEALTH NURSE POST-OP PHONE CONTACT: Medina Farrar was contacted via telephone as follow-up from recent breast surgery. TOPICS ADDRESSED: PAIN ASSESSMENT: Yes LOCATION: Right chest > left chest PAIN SCALE: 0 on a scale of 0-10 PAIN CHARACTER: sharp and shooting AGGRAVATING FACTORS: activity and standing MEDICATIONS: Roxicodone ordered every 8 hours but she is taking it every 4 hours as said that's how it was being given in the hospital. I told her I would notify Dr. Muñoz's ELECTRIC LINEMAN and RN to address this. Taking Robaxin and Tylenol ES as directed. Not taking Ibuprofen as she worries it will upset her stomach. EMOTIONAL ASSESSMENT: appropriate. ADJUSTMENT TO DIAGNOSIS AND TREATMENT: reflecting understanding. DRAIN CARE: Total 4 KATHERINE drains, 2 on each side. Drainage bloody. INCISION SITE: Surgical bra intact and dry. Applying Silvadene ointment as directed. NUTRITION: food intake: adequate. fluid intake: adequate. ACTIVITY AND EXERCISE: Per Dr. Muñoz. Teach Back method of education performed. The patient verbalized understanding. FOLLOW UP: Appts scheduled with surgical and plastics PA documented in this encounter [facility] 05-26-2022 Note HNO ID: [id number] Author: Izabel Smith (Barbecue Cook) Service: Pharmacy Author Type: ? Type: Plan of Care Filed: 05/28/2022 2:06 PM Note Text: PHARMACY BEDSIDE DELIVERY SERVICE Patient Name: Medina Farrar The marked outpatient medications were filled and delivered bedside. Medication List START taking these medications cefADROxil 500 mg capsuleX Commonly known as: DURICEF Take 1 capsule by mouth twice daily for 14 days. Continue taking until all drains removed or told otherwise by your surgeon. docusate sodium 100 mg capsuleX Commonly known as: COLACE Take 1 capsule by mouth twice daily as needed for constipation. ibuprofen 600 mg tabletX Commonly known as: MOTRIN Take 1 tablet by mouth every 6 hours. Can start day after surgery. Can alternate with tylenol (i.e. taking one or the other every 3 hrs). methocarbamol 750 mg tabletX Commonly known as: ROBAXIN Take 1 tablet by mouth three times daily. ondansetron 4 mg tabletX Commonly known as: ZOFRAN Take 1 tablet by mouth every 8 hours as needed for nausea/vomiting. oxyCODONE IR 5 mg immediate release tabletX Commonly known as: ROXICODONE Take 1 tablet by mouth every 8 hours as needed for pain. silver sulfADIAZINE 1 % creamX Commonly known as: SILVADENE,THERMAZENE Apply 1 application to affected area twice daily. Wipe away excess before applying new layer. Apply liberally over incisions as instructed. CHANGE how you take these medications * acetaminophen 325 mg tablet Commonly known as: TYLENOL What changed: Another medication with the same name was added. Make sure you understand how and when to take each. * acetaminophen 500 mg tabletX Commonly known as: TYLENOL EXTRA STRENGTH Take 2 tablets by mouth every 6 hours. What changed: You were already taking a medication with the same name, and this prescription was added. Make sure you understand how and when to take each. * This list has 2 medication(s) that are the same as other medications prescribed for you. Read the directions carefully, and ask your doctor or other care provider to review them with you. CONTINUE taking these medications * escitalopram oxalate 20 mg tablet Commonly known as: LEXAPRO LORazepam 1 mg tablet Commonly known as: ATIVAN Take one tablet (1 mg), one hour, before procedure. Take additional tablet, if needed, when you arrive at procedure for anxiety. Do not combine with alcohol or other medications. Do not drive while under the influence of this medication. PROBIOTIC ORAL * This list has 1 medication(s) that are the same as other medications prescribed for you. Read the directions carefully, and ask your doctor or other care provider to review them with you. You might also be taking other medications not listed above. If you have questions about any of your other medications, talk to the person who prescribed them or your Primary Care Provider. ASK your doctor about these medications * escitalopram oxalate 10 mg tablet Commonly known as: LEXAPRO Take 1 tablet by mouth once daily. * This list has 1 medication(s) that are the same as other medications prescribed for you. Read the directions carefully, and ask your doctor or other care provider to review them with you. Izabel Smith (Barbecue Cook) PAGER: [phone] May 26, 2022 2:05 PM [facility] 05-26-2022 Note Education (ONESIMO) MEDINA FARRAR ([id number]) 1970 F Date Time Provider Department 05/26/22 YESSY OLMSTEAD Reason for Visit: Education Of Patient/family [[id number]] Cmt: Post-op visit During your visit today, we recorded the following information about you: Allergies As of Date: 05/26/2022 (No Known Allergies) Date Reviewed: 05/26/2022 Reviewed by: Nayeli Marino RN - Fully Assessed Prescriptions as of 05/26/2022 - acetaminophen (TYLENOL EXTRA STRENGTH) 500 mg tablet Take 2 tablets by mouth every 6 hours. - ibuprofen (MOTRIN) 600 mg tablet Take 1 tablet by mouth every 6 hours. Can start day after surgery. Can alternate with tylenol (i.e. taking one or the other every 3 hrs). - ondansetron (ZOFRAN) 4 mg tablet Take 1 tablet by mouth every 8 hours as needed for nausea/vomiting. - docusate sodium (COLACE) 100 mg capsule Take 1 capsule by mouth twice daily as needed for constipation. - methocarbamol (ROBAXIN) 750 mg tablet Take 1 tablet by mouth three times daily. - oxyCODONE IR (ROXICODONE) 5 mg immediate release tablet Take 1 tablet by mouth every 8 hours as needed for pain. - silver sulfADIAZINE (SILVADENE,THERMAZENE) 1 % cream Apply 1 application to affected area twice daily. Wipe away excess before applying new layer. Apply liberally over incisions as instructed. - cefADROxil (DURICEF) 500 mg capsule Take 1 capsule by mouth twice daily for 14 days. Continue taking until all drains removed or told otherwise by your surgeon. - escitalopram oxalate (LEXAPRO) 20 mg tablet Take 20 mg by mouth daily at bedtime. - LORazepam (ATIVAN) 1 mg tablet Take one tablet (1 mg), one hour, before procedure. Take additional tablet, if needed, when you arrive at procedure for anxiety. Do not combine with alcohol or other medications. Do not drive while under the influence of this medication. - LACTOBACILLUS ACIDOPHILUS (PROBIOTIC ORAL) Take by mouth as needed. - acetaminophen (TYLENOL) 325 mg tablet Take 650 mg by mouth every 6 hours as needed. Facility-Administered Medications as of 05/26/2022 - escitalopram oxalate 20 mg tab(s) (LEXAPRO) - ondansetron orally disintegrating 8 mg tab(s) (ZOFRAN ODT) - ondansetron (PF) 4 mg injection (ZOFRAN) - prochlorperazine 5 mg injection (COMPAZINE) - calcium carbonate 500 mg chewable tab(s) (TUMS) - aluminum-magnesium hydroxide-simethicone 200-200-20 mg/5 mL 30 mL (MAALOX,MYLANTA,MAG-AL PLUS) - docusate sodium 100 mg cap(s) (COLACE) - senna 8.6 mg tab(s) (SENOKOT) - diphenhydrAMINE 25 mg (BENADRYL) - diphenhydrAMINE 25 mg injection (BENADRYL) - benzocaine-menthol 1 Lozenge (CEPACOL) - phenol 1 Lyons (CHLORASEPTIC) - melatonin 3 mg tab(s) - heparin 5,000 Units injection - NaCl 0.9% iv flush bag - sodium chloride 0.9 % (flush) 3-5 mL (BD POSIFLUSH) - silver sulfADIAZINE 1 % (SILVADENE,THERMAZENE) - lactated ringers iv infusion - ibuprofen 400 mg tab(s) (MOTRIN) - acetaminophen 1,000 mg tab(s) (TYLENOL) - oxyCODONE IR 5-10 mg tab(s) (ROXICODONE) - HYDROmorphone 0.4 mg injection (DILAUDID) - methocarbamol 1,500 mg tab(s) (ROBAXIN) Meds Comments as of 11/20/2007: All medications reviewed November 20, 2007 Hali Maher Encounter Status:Closed by YESSY OLMSTEAD on 05/26/22 [facility] 05-26-2022 Note HNO ID: [id number] Author: Ashley Pagan APRN.TUFT MACHINE OPERATOR Service: Plastic Surgery Author Type: Nurse Practitioner Type: Progress Notes Filed: 05/26/2022 11:39 AM Note Text: PLASTIC SURGERY PROGRESS NOTE OR DATE: 05/25/2022 1 Day Post-Op Procedure(s) (LRB): MASTECTOMY SIMPLE BILATERAL (Bilateral) TISSUE PROPERTY SITE MANAGER PLACEMENT IN BREAST RECONSTRUCTION BILATERAL (Bilateral) INSERTION OF BREAST IMPLANT ON SAME DAY OF MASTECTOMY IMMEDIATE BILATERAL (Bilateral) IMPLANTATION OF BIOLOGIC IMPLANT FOR SOFT TISSUE REINFORCEMENT (Bilateral) Hospital Day: 2 ASSESSMENT AND PLAN: 52 year old female, 1 Day Post-Op, s/p Right breast reconstruction direct to implant with total acellular dermal matrix coverage (264 cm?) Left breast reconstruction direct to implant with total acellular dermal matrix coverage (264 cm?) -Bilateral breasts well perfused. Slight eccymosis to left latral pole. No evidence of hematoma. KATHERINE drains x 2 bilaterally SS output. -Dressings in place and silvadene ointment to breasts. Instructions discussed and taught to at bedside. -Okay for discharge home today Discussed with Dr. Muñoz - - - - - - - - - - - - - - - - - - - - - - - - - - - - - - - - - - - - - - - - - - - - - - - INTERVAL HISTORY: No problems overnight. Pain controlled. Tolerated diet. Ambulating. Denies fevers / chills. MEDICATIONS: Current Facility-Administered Medications Medication Dose Route Frequency escitalopram oxalate 20 mg tab(s) (LEXAPRO) 20 mg ORAL AT BEDTIME ondansetron orally disintegrating 8 mg tab(s) (ZOFRAN ODT) 8 mg ORAL q 6 H PRN Or ondansetron (PF) 4 mg injection (ZOFRAN) 4 mg INTRAVENOUS q 6 H PRN prochlorperazine 5 mg injection (COMPAZINE) 5 mg INTRAVENOUS q 6 H PRN calcium carbonate 500 mg chewable tab(s) (TUMS) 500 mg ORAL TID PRN Or aluminum-magnesium hydroxide-simethicone 200-200-20 mg/5 mL 30 mL (MAALOX,MYLANTA,MAG-AL PLUS) 30 mL ORAL TID PRN docusate sodium 100 mg cap(s) (COLACE) 100 mg ORAL BID senna 8.6 mg tab(s) (SENOKOT) 8.6 mg ORAL BID PRN diphenhydrAMINE 25 mg (BENADRYL) 25 mg ORAL q 6 H PRN Or diphenhydrAMINE 25 mg injection (BENADRYL) 25 mg INTRAVENOUS q 6 H PRN benzocaine-menthol 1 Lozenge (CEPACOL) 1 Lozenge MUCOUS MEMBRANE (TOPICAL MOUTH AND THROAT) q 2 H PRN Or phenol 1 Lyons (CHLORASEPTIC) 1 Lyons MUCOUS MEMBRANE (TOPICAL MOUTH AND THROAT) q 2 H PRN melatonin 3 mg tab(s) 3 mg ORAL AT BEDTIME PRN heparin 5,000 Units injection 5,000 Units SUBCUTANEOUS q 8 H NaCl 0.9% iv flush bag 20 mL INTRAVENOUS PRN sodium chloride 0.9 % (flush) 3-5 mL (BD POSIFLUSH) 3-5 mL INTRAVENOUS q 12 H silver sulfADIAZINE 1 % (SILVADENE,THERMAZENE) TOPICAL BID lactated ringers iv infusion 5-30 mL/hr INTRAVENOUS CONTINUOUS ibuprofen 400 mg tab(s) (MOTRIN) 400 mg ORAL QID acetaminophen 1,000 mg tab(s) (TYLENOL) 1,000 mg ORAL q 6 H oxyCODONE IR 5-10 mg tab(s) (ROXICODONE) 5-10 mg ORAL q 4 H PRN HYDROmorphone 0.4 mg injection (DILAUDID) 0.4 mg INTRAVENOUS q 3 H PRN methocarbamol 1,500 mg tab(s) (ROBAXIN) 1,500 mg ORAL QID PRN PHYSICAL EXAM: BP 106/57 Pulse 66 Temp 36.7 ?C (98.1 ?F) (Oral) Resp 17 Ht 165.1 cm (5' 5 ) Wt 71.2 kg (157 lb) LMP 05/28/2021 (Exact Date) SpO2 97% BMI 26.13 kg/m? General: AOx3,NAD Wound: Bilateral breasts well perfused. Nipples perfused. Slight eccymosis to left latral pole. No evidence of hematoma. KATHERINE drains x 2 bilaterally SS output. Dressings c/d/I DATA: Intake/Output Summary (Last 24 hours) at 05/26/2022 1131 Last data filed at 05/26/2022 0835 Gross per 24 hour Intake 3490 ml Output 928 ml Net 2562 ml CBC, Coags, BMP, Mg, Phos Recent Labs 05/26/22 0749 WBC 10.86 HB 11.1* HCT 33.3* PLT 225 NA 141 K 4.0 CHLOR 107* CO2 27 BUN 14 CREAT 0.81 GLUC 105* CA 8.2* MG 2.3 P 3.3 Ashley Pagan, RISK SPECIALIST.TUFT MACHINE OPERATOR Plastic Surgery P:[phone] 8am-4pm After hours [employer] Pager, [facility] 05-26-2022 Note HNO ID: [id number] Author: Yessy Olmstead RN Service: ? Author Type: Registered Nurse Type: Progress Notes Filed: 05/26/2022 10:03 AM Note Text: Post-op day 1 visit made to the bedside. Patient laying in bed, using heart pillow. at the bedside. Patient reports a pain of 6/10, was given Oxycodone at 8:30am. Patient declined pain meds previously. Medina feels dizzy and reports she has had low blood pressure. Patch placed behind ears. She has been getting to the bathroom with assistance. Reviewed basic home going instructions including pain management, bowel management, incision care, showering, drain management, nutrition/hydration, activity, ROM restrictions. Patient and spouse verbalize understanding. Medina has help in the home when she goes home. They are getting prescriptions filled at the hospital prior to discharge (also requesting prescription for stool softener). Medina is aware breast nurse navigator will call her tomorrow to see how she is doing, answer questions. Reviewed who to contact for after hours urgent concerns/needs. Yessy Olmstead RN [facility] 05-26-2022 History of Presen t illness Narrative Post-op day 1 visit made to the bedside. Patient laying in bed, using heart pillow. at the bedside. Patient reports a pain of 6/10, was given Oxycodone at 8:30am. Patient declined pain meds previously. Medina feels dizzy and reports she has had low blood pressure. Patch placed behind ears. She has been getting to the bathroom with assistance. Reviewed basic home going instructions including pain management, bowel management, incision care, showering, drain management, nutrition/hydration, activity, ROM restrictions. Patient and spouse verbalize understanding. Medina has help in the home when she goes home. They are getting prescriptions filled at the hospital prior to discharge (also requesting prescription for stool softener). Medina is aware breast nurse navigator will call her tomorrow to see how she is doing, answer questions. Reviewed who to contact for after hours urgent concerns/needs. Yessy Olmstead RN documented in this encounter [facility] 05-26-2022 Note HNO ID: [id number] Author: Laura Daniels MD Service: General Surgery Author Type: Resident Type: Progress Notes Filed: 05/26/2022 12:56 PM Note Text: GENERAL SURGERY SERVICES PROGRESS NOTE SERVICE DATE: 05/26/2022 Medina Farrar [id number] Hospital Day: 2 OR DATE: 05/25/2022 1 Day Post-Op Procedure(s) (LRB): MASTECTOMY SIMPLE BILATERAL (Bilateral) TISSUE PROPERTY SITE MANAGER PLACEMENT IN BREAST RECONSTRUCTION BILATERAL (Bilateral) INSERTION OF BREAST IMPLANT ON SAME DAY OF MASTECTOMY IMMEDIATE BILATERAL (Bilateral) IMPLANTATION OF BIOLOGIC IMPLANT FOR SOFT TISSUE REINFORCEMENT (Bilateral) Hospital Day: 2 Subjective No acute events Pain is well controlled on current regimen. no n/v Intake/Output Summary (Last 24 hours) at 05/26/2022 0546 Last data filed at 05/26/2022 0500 Gross per 24 hour Intake 3090 ml Output 1533 ml Net 1557 ml Current Facility-Administered Medications Medication Dose Route Frequency escitalopram oxalate 20 mg tab(s) (LEXAPRO) 20 mg ORAL AT BEDTIME ondansetron orally disintegrating 8 mg tab(s) (ZOFRAN ODT) 8 mg ORAL q 6 H PRN Or ondansetron (PF) 4 mg injection (ZOFRAN) 4 mg INTRAVENOUS q 6 H PRN prochlorperazine 5 mg injection (COMPAZINE) 5 mg INTRAVENOUS q 6 H PRN calcium carbonate 500 mg chewable tab(s) (TUMS) 500 mg ORAL TID PRN Or aluminum-magnesium hydroxide-simethicone 200-200-20 mg/5 mL 30 mL (MAALOX,MYLANTA,MAG-AL PLUS) 30 mL ORAL TID PRN docusate sodium 100 mg cap(s) (COLACE) 100 mg ORAL BID senna 8.6 mg tab(s) (SENOKOT) 8.6 mg ORAL BID PRN diphenhydrAMINE 25 mg (BENADRYL) 25 mg ORAL q 6 H PRN Or diphenhydrAMINE 25 mg injection (BENADRYL) 25 mg INTRAVENOUS q 6 H PRN benzocaine-menthol 1 Lozenge (CEPACOL) 1 Lozenge MUCOUS MEMBRANE (TOPICAL MOUTH AND THROAT) q 2 H PRN Or phenol 1 Lyons (CHLORASEPTIC) 1 Lyons MUCOUS MEMBRANE (TOPICAL MOUTH AND THROAT) q 2 H PRN melatonin 3 mg tab(s) 3 mg ORAL AT BEDTIME PRN heparin 5,000 Units injection 5,000 Units SUBCUTANEOUS q 8 H NaCl 0.9% iv flush bag 20 mL INTRAVENOUS PRN sodium chloride 0.9 % (flush) 3-5 mL (BD POSIFLUSH) 3-5 mL INTRAVENOUS q 12 H silver sulfADIAZINE 1 % (SILVADENE,THERMAZENE) TOPICAL BID lactated ringers iv infusion 5-30 mL/hr INTRAVENOUS CONTINUOUS ibuprofen 400 mg tab(s) (MOTRIN) 400 mg ORAL QID acetaminophen 1,000 mg tab(s) (TYLENOL) 1,000 mg ORAL q 6 H oxyCODONE IR 5-10 mg tab(s) (ROXICODONE) 5-10 mg ORAL q 4 H PRN HYDROmorphone 0.4 mg injection (DILAUDID) 0.4 mg INTRAVENOUS q 3 H PRN methocarbamol 1,500 mg tab(s) (ROBAXIN) 1,500 mg ORAL QID PRN Objective PHYSICAL EXAM: BP 102/52 Pulse 70 Temp (Src) 98.1 (Oral) Resp 16 Ht 5' 5 (1.65m) Wt 157 lb (71.2kg) SpO2 95% LMP 05/28/2021 BMI 26.13 kg/(m2). O2 Therapy: Room Air, Liters: 2 Gen: Alert and awake. Neck: Supple. CV: RRR. Lungs: Breathing comfortably on RA Breast: incisions with operative dressing, minimal ecchymosis around incisions, no hematomas, no ecchymosis, KATHERINE drains in place with minimal dark red bloody output Abdomen: abdomen soft, non distended. Neuro: non focal. Ext: trace lower extremities edema, SCDs in place DATA: Diagnostic tests reviewed for today's visit: CBC, Coags, BMP, Mg, Phos Recent Labs 05/26/22 0749 WBC 10.86 HB 11.1* HCT 33.3* PLT 225 NA 141 K 4.0 CHLOR 107* CO2 27 BUN 14 CREAT 0.81 GLUC 105* CA 8.2* MG 2.3 P 3.3 Assessment/Plan Medina Farrar is a 52 year old female now POD 1 s/p BL nipple sparing mastectomies with PRS reconstruction. Afebrile, no leukocytosis, vital signs stable. -ok to discharge home from general surgery perspective -antibiotics per plastic surgery -discharge with pain medications PRN -patient will follow with Dr. Thorne in 1-2 weeks - Will discuss with the staff Dr. Mati Daniels MD General Surgery Resident For team paging 6AM-6PM during weekdays: [phone] for [facility] Team For team paging after 6PM or on weekend / holidays: [phone] for General Surgery [facility] 05-25-2022 Note Education (ONESIMO) LENIMEDINA E ([id number]) 1970 F Date Time Provider Department 05/25/22 TERRA STEPHENSON Reason for Visit: Post Op [174] Visit Notes: >> Terra Stephenson RN scooter May 25, 2022 11:19 AM Status: Signed BREAST HEALTH NURSE POST-OPERATIVE DISCHARGE INSTRUCTIONS The following was placed in Medina's locker with her other belongings. Medina was in surgery at the time of this encounter: Heart shaped pillow -Yes Meditative book -Yes Support group information -Yes Patient will be seen in the hospital or, if discharged, contacted by phone to evaluate for further educational and emotional support needs. Terra Stephenson RN During your visit today, we recorded the following information about you: Allergies As of Date: 05/25/2022 (No Known Allergies) Date Reviewed: 05/25/2022 Reviewed by: Ananya Rutherford RN - Fully Assessed Prescriptions as of 05/25/2022 - LORazepam (ATIVAN) 1 mg tablet Take one tablet (1 mg), one hour, before procedure. Take additional tablet, if needed, when you arrive at procedure for anxiety. Do not combine with alcohol or other medications. Do not drive while under the influence of this medication. - escitalopram oxalate (LEXAPRO) 10 mg tablet Take 1 tablet by mouth once daily. - LACTOBACILLUS ACIDOPHILUS (PROBIOTIC ORAL) Take by mouth as needed. - acetaminophen (TYLENOL) 325 mg tablet Take 650 mg by mouth every 6 hours as needed. Facility-Administered Medications as of 05/25/2022 - lidocaine 10 mg/mL (1 %) 1-2 mg injection (XYLOCAINE) - lactated ringers iv infusion - scopolamine 1 mg over 3 days 1 Patch (TRANSDERM-SCOP) - scopolamine - REMOVE PATCH - scopolamine - VERIFY patch - fentaNYL 50 mcg/mL injection (SUBLIMAZE) - midazolam injection (VERSED) - lidocaine HCl (PF) 20 mg/mL (2 %) injection - propofol injection (DIPRIVAN) - rocuronium injection - lactated ringers iv infusion - lactated ringers iv infusion - dexAMETHasone sodium phosphate injection (DECADRON) - PHENYLephrine 10 mg in NaCl 0.9% 100 mL (MATTHEW-SYNEPHRINE) - propofol infusion (DIPRIVAN) - magnesium sulfate 2 g in NaCl 0.9% 100 mL - SUFentanil 100 mcg in NaCl 0.9% 50 mL (SUFENTA) - PHENYLephrine injection Meds Comments as of 11/20/2007: All medications reviewed November 20, 2007 Hali Cancino [facility] Encounter Status:Closed by TERRA STEPHENSON on 05/25/22 [facility] 05-25-2022 Nurse Note BREAST HEALTH NURSE POST-OPERATIVE DISCHARGE INSTRUCTIONS The following was placed in Medina's locker with her other belongings. Medina was in surgery at the time of this encounter: Heart shaped pillow -Yes Meditative book -Yes Support group information -Yes Patient will be seen in the hospital or, if discharged, contacted by phone to evaluate for further educational and emotional support needs. Terra Stephenson RN documented in this encounter [facility] 05-25-2022 Note HNO ID: [id number] Author: Karen Vivar APRN.STRIKE OFF MACHINE OPERATOR Service: ? Author Type: Nurse Picker Packer Type: Anesthesia Procedure Notes Filed: 05/25/2022 8:40 AM Note Text: ANESTHESIOLOGY PROCEDURE NOTE PIV General Information Procedure Start Time/Medication Administration: 05/25/2022 8:40 AM Patient Location: OR Staffing Anesthesiologist: Tayler Goldberg MD Performed by: anesthesiologist Preparation Sterility Preparation: hand hygiene performed prior to procedure Site Prep: Betadine and chlorhexidine Procedure Details Indication: need for IV access Needle Size/Type: 18 gauge angiocath Orientation: Left Location: Hand Imaging Guidance Used: No SIGNATURE: Karen Vivar APRN.CRNA PATIENT NAME: Medina Farrar DATE: May 25, 2022 TIME: 8:40 AM CSN: [id number] [facility] 05-25-2022 Note HNO ID: [id number] Author: Karen Vivar APRN.STRIKE OFF MACHINE OPERATOR Service: ? Author Type: Nurse Picker Packer Type: Anesthesia Procedure Notes Filed: 05/25/2022 8:38 AM Note Text: ANESTHESIOLOGY PROCEDURE NOTE Airway General Information Procedure Start Time/Medication Administration: 05/25/2022 8:07 AM Patient location during procedure: OR Patient identity confirmed: arm band, care produce production team member and patient Staffing STRIKE OFF MACHINE OPERATOR: Karen Vivar APRN.STRIKE OFF MACHINE OPERATOR Performed by: GELY Indications and Patient Condition Indications for airway management: anesthesia Preoxygenated: yes anesthesia circuit Method: asleep Difficult Mask: No Final Airway Details Final airway type: endotracheal airway Final Endotracheal Airway: ETT Cuffed: yes Successful intubation technique: direct laryngoscopy Devices used: intubating stylet Endotracheal tube insertion site: oral Blade: Farrar Blade size: #2 ETT size (mm): 7.0 Measured from: lips Measurement (cm): 22 Placement verified by: capnometry Cormack-Lehane Classification: grade IIa - partial view of glottis Number of attempts at approach: 1 Airway not difficult Comments Atraumatic insertion, baseline dentition intact SIGNATURE: Karen Vivar APRN.CRNA PATIENT NAME: Medina Farrar DATE: May 25, 2022 TIME: 8:38 AM CSN: [id number] [facility] 05-17-2022 Note Education ([facility]) LENIMEDINA ([id number]) 1970 F Date Time Provider Department 10/10/22 FAY BRAMBILA [facility] Reason for Visit: Patient Education [91] Cmt: Bilateral NS Risk reducing Mastectomies with recon Visit Notes: >> Fay Brambila LPN Mon May 17, 2022 10:58 AM Status: Signed AMBULATORY PATIENT EDUCATION NOTE TOPIC: Bilateral NS Risk reducing Mastectomies with recon READINESS TO LEARN COGNITIVE ABILITY: Alert and oriented MOTIVATION TO LEARN: Interested FAMILY SUPPORT: Low - Inconsistent family involvement INSTRUCTION PROVIDED TO: Patient PATIENT LEARNS BEST BY: Multiple Methods FACTORS AFFECTING LEARNING: None PHYSICAL LIMITATIONS AFFECTING LEARNING: None LEARNING RESPONSE DIAGNOSIS: Z15.01 METHOD OF INSTRUCTION: Individual instruction Written instruction - handouts Verbal instruction PATIENT / FAMILY RESPONSE: Verbalizes understanding of: DRAIN CARE- Correct procedure to perform drain care INFECTION MANAGEMENT-Signs and symptoms of an infection and importance of contacting the physician MEDICATION PRESCRIBED-Accurate knowledge of prescribed medication prior to discharge MEDICATION ROUTE-Correct route for administration of the prescribed medication MEDICATION SIDE EFFECTS-Side effects associated with the medication that warrant a call to the physician PAIN MANAGEMENT-Effective strategies to manage pain in addition to pain medication PHYSICAL RESTRICTIONS-Physical restrictions and recommendations after discharge from the hospital POST-OPERATIVE INSTRUCTIONS-Correct actions to take to reduce postoperative complications PRE-OPERATIVE INSTRUCTIONS-Correct action to take to follow pre-operative instructions PATIENT SAFETY PRINCIPLES SYMPTOM MANAGEMENT-Correct actions to take to manage symptoms associated with his/her disease/illness VTE prevention measures WORSENING CONDITION-Signs and symptoms of a worsening condition that warrant a call to the physician WOUND CARE-Correct procedure to perform wound care Per Breast Center guidelines the patient was given the Hibiclens liquid, and was given written instructions which include instructions to not use on the face or near the eyes or genital area. The instructions were reviewed with the patient verbalized understanding the instructions. FOLLOW-UP PLAN: Patient instructed to call with any further issues SUPPLEMENTAL MATERIAL: Your Surgical Guide for Outpatient Surgery Centers REFERRAL (RECOMMENDATION): None Electronically Signed By: Fay Brambila LPN In Department: [facility] Time spent on patient education: 15 minutes. Primary Visit Diagnosis:BRCA2 positive [Z15.01, Z15.09] During your visit today, we recorded the following information about you: Allergies As of Date: 05/17/2022 (No Known Allergies) Date Reviewed: 05/17/2022 Reviewed by: Fay Brambila LPN - Fully Assessed Prescriptions as of 05/17/2022 - LORazepam (ATIVAN) 1 mg tablet Take one tablet (1 mg), one hour, before procedure. Take additional tablet, if needed, when you arrive at procedure for anxiety. Do not combine with alcohol or other medications. Do not drive while under the influence of this medication. - escitalopram oxalate (LEXAPRO) 10 mg tablet Take 1 tablet by mouth once daily. - LACTOBACILLUS ACIDOPHILUS (PROBIOTIC ORAL) Take by mouth as needed. - acetaminophen (TYLENOL) 325 mg tablet Take 650 mg by mouth every 6 hours as needed. Meds Comments as of 11/20/2007: All medications reviewed November 20, 2007 Hali Anahi Cancino [facility] Encounter Status:Closed by FAY BRAMBILA on 05/17/22 [facility] 05-17-2022 Nurse Note AMBULATORY PATIENT EDUCATION NOTE TOPIC: Bilateral NS Risk reducing Mastectomies with recon READINESS TO LEARN COGNITIVE ABILITY: Alert and oriented MOTIVATION TO LEARN: Interested FAMILY SUPPORT: Low - Inconsistent family involvement INSTRUCTION PROVIDED TO: Patient PATIENT LEARNS BEST BY: Multiple Methods FACTORS AFFECTING LEARNING: None PHYSICAL LIMITATIONS AFFECTING LEARNING: None LEARNING RESPONSE DIAGNOSIS: Z15.01 METHOD OF INSTRUCTION: Individual instruction Written instruction - handouts Verbal instruction PATIENT / FAMILY RESPONSE: Verbalizes understanding of: DRAIN CARE- Correct procedure to perform drain care INFECTION MANAGEMENT-Signs and symptoms of an infection and importance of contacting the physician MEDICATION PRESCRIBED-Accurate knowledge of prescribed medication prior to discharge MEDICATION ROUTE-Correct route for administration of the prescribed medication MEDICATION SIDE EFFECTS-Side effects associated with the medication that warrant a call to the physician PAIN MANAGEMENT-Effective strategies to manage pain in addition to pain medication PHYSICAL RESTRICTIONS-Physical restrictions and recommendations after discharge from the hospital POST-OPERATIVE INSTRUCTIONS-Correct actions to take to reduce postoperative complications PRE-OPERATIVE INSTRUCTIONS-Correct action to take to follow pre-operative instructions PATIENT SAFETY PRINCIPLES SYMPTOM MANAGEMENT-Correct actions to take to manage symptoms associated with his/her disease/illness VTE prevention measures WORSENING CONDITION-Signs and symptoms of a worsening condition that warrant a call to the physician WOUND CARE-Correct procedure to perform wound care Per Breast Center guidelines the patient was given the Hibiclens liquid, and was given written instructions which include instructions to not use on the face or near the eyes or genital area. The instructions were reviewed with the patient verbalized understanding the instructions. FOLLOW-UP PLAN: Patient instructed to call with any further issues SUPPLEMENTAL MATERIAL: Your Surgical Guide for Outpatient Surgery Centers REFERRAL (RECOMMENDATION): None Electronically Signed By: Fay Brambila LPN In Department: [facility] Time spent on patient education: 15 minutes. documented in this encounter [facility] 05-07-2022 Instructions Ángela Vivar APRN.TUFT MACHINE OPERATOR - 05/07/2022 9:29 AM EDT PATIENT PREOPERATIVE INSTRUCTIONS Judy Crisostomo PA-C has scheduled you for your procedure at this surgery center: [facility]: [phone] --[id number] [address]. Please check in on the 1st floor at registration desk 6. Please read below carefully for your personalized instructions. Dietary Restrictions: - No solid food after midnight. - You may have 12 ounces of clear liquids (water, clear juices such as apple juice or gatorade, carbonated beverages, clear tea, black coffee, jello) until 2 hours before scheduled arrival at facility. No red/purple coloring and no creamer/sugar Medications: Unless instructed differently below, stay on all of your medications until your surgery. Approved medications to take the morning of surgery with a sip of water: Lexapro If you start any new medications after today's visit, please contact the surgeon's office. Blood Thinning Medications: - Stop NSAIDS (Ibuprofen, Advil, Aleve, Motrin, Celebrex, Mobic, etc.) 7 days before surgery, as directed by your surgeon. - Stop Aspirin 7 days before surgery, as directed by your surgeon. - Stop Vitamin E, ALL multi-vitamins, herbals and dietary supplements 7 days before surgery. - You may take Tylenol (Acetaminophen) or any of your pain medications that do not contain aspirin or NSAIDS as needed. Important Reminders: - If you use CPAP/BIPAP, bring the machine with you to the surgery center. - If you are prescribed inhalers for breathing, continue using them. - Candy, mints, and tobacco products are NOT permitted the morning of surgery. - Hearing aids, dentures and glasses may be worn the morning of surgery. - NO jewelry, body piercings, makeup, hairpins or contacts are to be worn the day of surgery. If you develop symptoms such as a fever, cold, or flu, or have other changes to your health within TWO DAYS of scheduled surgery or the morning of surgery, please contact the surgery center above. Personal Belongings: -Please have photo ID and insurance cards. -If you do not have a copy of advance directives on file with us, please bring a copy with you on the day of surgery. - Leave ALL valuables and money at home or with family members. For Outpatient Procedures: - YOU MUST HAVE A RESPONSIBLE AUTO MECHANIC SUPERVISOR TAKE YOU HOME. A PHILOSOPHY LECTURER OR ADMITTING MANAGER CANNOT BE MADE A RESPONSIBLE AUTO MECHANIC SUPERVISOR. - We recommend that a responsible person stays with you overnight to take care of you. - You cannot stay in a hotel alone after outpatient surgery. You will not be permitted to have your surgery, if you do not have someone to take care of you. Arrival Time for Surgery: - The Surgery Center or hospital where you are having surgery will call the afternoon before surgery (or Tuesday for Tuesday surgery) with a scheduled arrival time. - If you have not heard by 4 pm, please contact the surgery center above. Please be aware that emergency situations arise, which may delay or change your surgical time. If this happens, we will notify you as soon as possible and regret any inconvenience. If you already have an Advance Directive, please fax a copy to [phone] or email to for it to be added to your chart. If you do not have an Advance Directive, you can find the appropriate form and more information at [email or web address]. We recommend that you complete the Advance Directive form found on the website and bring it with you the day of your surgery. It can be witnessed and scanned into your chart that day. Ángela Vivar APRN.LIOR documented in this encounter [facility] 05-07-2022 History and physical note HISTORY AND PHYSICAL EXAMINATION SERVICE DATE: 05/07/2022 SERVICE TIME: 9:26 AM PRIMARY CARE PHYSICIAN: Autumn Lucas MD REASON FOR VISIT: Medina Farrar is a 52 year old female who is scheduled for Procedure(s) with comments: MASTECTOMY SIMPLE BILATERAL (Bilateral) - nipple sparing with reconstruction t/f TISSUE PROPERTY SITE MANAGER PLACEMENT IN BREAST RECONSTRUCTION BILATERAL (Bilateral) INSERTION OF BREAST IMPLANT ON SAME DAY OF MASTECTOMY IMMEDIATE BILATERAL (Bilateral) IMPLANTATION OF BIOLOGIC IMPLANT FOR SOFT TISSUE REINFORCEMENT (Bilateral) at the request of Dr. Judy Crisostomo for consultation. My final recommendation will be communicated back to the requesting physician by way of shared medical record or letter. Subjective The patient has the following: ACTIVE PROBLEM LIST Esophageal Reflux Skin Lesions, Generalized Sebaceous Cyst Abnormal Mammogram Abnormal Uterine Bleeding Anxiety Pms (Premenstrual Syndrome) Atypical Lobular Hyperplasia (Alh) of Right Breast Dense Breast Fibrocystic Breast Changes of Both Breasts Brca2 Positive Encounter for Screening Mammogram for High-Risk Patient COVID-19 Immunization Status Overdue - COVID-19 VACCINE (1) Overdue - never done No completion, postpone, frequency change, or communication history exists for this topic. CHIEF COMPLAINT: Pre-op exam HPI: DM is a 52 yo seen for PAC due to scheduled above surgery because of BRCA 2 positive. 02/25/2022 Dr. Mati Farrar is a 51 year old year old white female, former patient, with a BRCA 2 mutation, presents to the [facility], at the request of Dr. Wade Scott for a surgical consult for Risk Reducing Mastectomies. Consult requested for an opinion regarding the evaluation and treatment of a new breast issue. My final impression and recommendations will be communicated back to the requesting physician by way of the shared medical record or letter via US mail. She has had a LEFT breast biopsy in 2013 reporting ADH (side not stated) as well as mutiple benign RIGHT breast benign biopsies with one excision in 2016 revealing a focus of ALH. Declined chemoprevention and has been followed by [facility]. She denies any palpable masses, skin changes, nipple discharge, nipple retraction, breast pain or masses in her axilla. Patient is adopted and at the time of her surgery in 2016 did not know her family history. Patient found her family history which includes history of breast cancer in her maternal grandmother (her in 80's), paternal aunt - stage IV breast cancer age 68 (currently being treated). Maternal grandmother with a history of ovarian cancer as well . 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 Her counseling has been completed by her cleaner assistant Dr Autumn Lucas ([facility]). She underwent a RRSO with negative pathology in 06/[address] Wade Kahn medical breast, and Dr. Glenny Viramontes, breast psychology REVIEW OF SYSTEMS: General: No weight loss, malaise or fevers. Neurological: No history of TIA's, stroke, ENVIRONMENTAL TECHNICAL OFFICER tumor, impaired sensorium, hemiplegia, paraplegia or quadraplegia. No neurological symptoms or problems. Respiratory: No history of current cough or dyspnea, or pneumonia in the past 6 weeks. No history of respiratory/pulmonary symptoms or problems. Cardiovascular: Negative for: angina, anticoagulation therapy, arrhythmia, atrial fibrillation, CAD, chest pain, CHF, congenital heart defect, DVT/PE, hyperlipidemia, hypertension, recent TX, murmur/valvular heart disease, open heart surgery and valve surgery. GI: Positive for: GERD (diet controlled) and PUD (remote hx) Negative for: abdominal pain, dysphagia, hepatitis, irritable bowel syndrome, inflammatory bowel disease, liver disease, nausea, pancreatitis, vomiting and ETOH >2 drinks/day. : No history of dysuria, frequency or incontinence, stones or chronic kidney disease. No difficulty urinating, nocturia > 1 time per night or hematuria. INSPECTOR GLASS OR MIRROR: Negative for abnormal vaginal bleeding, abnormal vaginal discharge. Endocrine: No history of diabetes. Has not taken steroids within the past 30 days. No history of endocrinological symptoms or problems. Hematology: No history of bleeding or clotting disorder. Patient is not taking anti-coagulation or platelet medications. No history of hematological symptoms or problems. Oncology: See HPI. Psych: Positive for: anxiety (on rx, rx as needed). Musculoskeletal: Positive for: back pain (otc analgesics as needed, right sided sciatica). Skin: Negative for lesions, rash and itching. PAST MEDICAL HISTORY Diagnosis Date Anxiety Atypical lobular hyperplasia of breast 2016 Dysmenorrhea Excessive or frequent menstruation Heavy periods Gastric ulcer, unspecified as acute or chronic, without mention of hemorrhage or perforation Other abnormal heart sounds Murmur PAST SURGICAL HISTORY Procedure Laterality Date BX BREAST W/DEVICE 1ST LESION STEREOTACTIC GUID Left 10-08-13 BX BREAST W/DEVICE 1ST LESION STEREOTACTIC GUID Right 09-01-15 EXC CYST/ABERRANT BREAST TISSUE OPEN 1/> LESION Right 11/03/2015 2 biopsies HYSTERECTOMY HX 06/23/2021 Uterus remains; ovaries and tubes removed PAST SURGICAL HISTORY OF UMBILICAL HERNIA REPAIR REM LESION NEC,HAND,SCAL<0.5CM 09/29/13 Exc. scalp wens x 5 FAMILY HISTORY Adopted: Yes Problem Relation Age of Onset other (adopted) Son Breast Cancer Paternal Aunt 68 Stage 4; at 71 Breast Cancer Maternal Grandmother 80 other (Other) Maternal Grandmother Ovarian or Uterine Cancer Social History Tobacco Use Smoking status: Never Smokeless tobacco: Never Vaping Use Vaping Use: Never used Substance Use Topics Alcohol use: Yes Comment: Seldom Drug use: No Prior to Admission medications as of 05/07/22 0925 Medication Sig Last Dose Taking LORazepam (ATIVAN) 0.5 mg tab Take 0.5 tablets by mouth twice daily as needed. LORazepam (ATIVAN) 1 mg tablet Take one tablet (1 mg), one hour, before procedure. Take additional tablet, if needed, when you arrive at procedure for anxiety. Do not combine with alcohol or other medications. Do not drive while under the influence of this medication. escitalopram oxalate (LEXAPRO) 10 mg tablet Take 1 tablet by mouth once daily. Patient taking differently: Take 20 mg by mouth once daily. LACTOBACILLUS ACIDOPHILUS (PROBIOTIC ORAL) Take by mouth as needed. acetaminophen (TYLENOL) 325 mg tablet Take 650 mg by mouth every 6 hours as needed. Medication Comments documented by Maninder Molina on 11/20/2007 at 1110. All medications reviewed today/November 20, 2007 Hali Cancino Continuous Weld Pipe Mill Supervisor Ca ALLERGIES No Known Allergies Objective PHYSICAL EXAM: General: alert and oriented (x3) and healthy appearance. Pertinent negatives noted - not distressed. Skin: normal color, no rash or lesions. HEENT: EOM intact and pupils equal round. Pertinent negatives noted - no carotid bruit. Cardiovascular: regular rate and rhythm, normal S1 and S2, no rub, murmurs, or gallop. Respiratory: normal breath sounds, no wheezes or crackles. No chest wall deformity or tenderness. Abdomen: soft. Pertinent negatives noted - not tender. Extremities: no deformity, no edema or tenderness, no joint swelling or clubbing. Neurological: normal cognition and motor skills. Gait normal. No weakness or sensory deficit. PAIN ASSESSMENT: VITALS: BP 110/76 Pulse 68 Temp (Src) 96.9 (Temporal) Resp 16 Ht 5' 5 (1.65m) Wt 157 lb (71.2kg) SpO2 96% LMP 05/28/2021 BMI 26.13 kg/(m^2). Diagnostic tests reviewed for today's visit: Lab Value Units Date High Low HB No results within date range. HCT No results within date range. WBC No results within date range. PLT No results within date range. NA No results within date range. K No results within date range. GLUC No results within date range. BUN No results within date range. CREAT No results within date range. PTSEC No results within date range. INR No results within date range. APTT No results within date range. ALT No results within date range. AST No results within date range. TBILI No results within date range. TSH No results within date range. Lab Value Units Date High Low HCGQT No results within date range. UHCG No results within date range. HCG, BODY* No results within date range. Lab Value Units Date High Low ABORHD No results within date range. ABSCREEN No results within date range. No results found for: HBA1C No results found for this or any previous visit (from the past 8760 hour(s)). No results found for this or any previous visit (from the past 06286 hour(s)). Assessment No problem-specific Assessment & Plan notes found for this encounter. Ceils Activity Status Index: METS: Climb a flight of stairs or walk up a hill (5.50 METs) DASI Score: 5.5 Patient denies any chest pain or undue shortness of breath with the above physical activity. Clinical Frailty Scale: 2. Well STOP-Bang Score: Snores loudly Patient over 50 years old Denies feeling tired, fatigued, or sleepy during the daytime Has not been observed to stop breathing or choking/gasping during sleep Denies having high blood pressure BMI less than or equal to 35 kg/m^2 Does not have a large neck Non-male patient STOP-Bang Score: 2 [id number] Score: Age: <65 Sex: female CHF history: No Hypertension history: No Stroke/TIA/thromboembolism history: No Vascular disease history: No Diabetes history: No [id number] Score: 1 ARISCAT Score: Age: 51-80 Preoperative SpO2: >=96% Respiratory infection in the last month: No Preoperative anemia: No Surgical incision: peripheral Duration of surgery: <2 hrs Emergency procedure: No ARISCAT Score: 3 ASA Class: 2 ANESTHESIA FINDINGS: Intubation History: No history of difficult intubation Significant Anesthesia Considerations: h/o hypotension with anesthesia and severe anxiety with surgies potential postop nausea/vomiting Airway History: No history of difficult airway I - PHYSICAL EVALUATION AIRWAYTracheostomy tube not present Mallampati: III. TM distance: >3 FB. Neck ROM: full ROM without neurological symptoms. Mouth opening: adequate. Short neck: no. Thick neck: no DENTAL Dental findings: teeth intact. II - ANESTHESIA PLAN ASA Score: 2 Anesthetic Plan: other Anesthetic plan additional comments: *PACC/TCI - anesthesia choice. Informed Consent Anesthetic risks, benefits, alternatives, personnel and consent discussed: yes. Patient / Responsible Alliance Party agrees to proceed: yes Patient / Surrogate agrees to blood products: blood products not planned Prepared for Surgery: optimally prepared for surgery, pending [see comment]. Labs and EKG CONSULTS: Patient does not require consults for optimization at this time Planned Anesthetic: other anesthesia choice The Following Tests/Procedures Have Been Initiated: Orders Placed This Encounter >CBC + AUTO DIFF Standing Status: Future Standing Expiration Date: 07/07/2022 >CMP Standing Status: Future Standing Expiration Date: 07/07/2022 ECG COMPLETE Standing Status: Future Standing Expiration Date: 05/07/2023 Instructions Given to Patient: Instructions located in the after visit summary. Patient given verbal and written preop instructions and voices comprehension and compliance. SIGNATURE: Ángela Vivar APRN.CNP PATIENT NAME: Medina Farrar DATE: May 07, 2022 TIME: 9:26 AM PAGER/CONTACT #: documented in this encounter [facility] 02-25-2022 History of Presen t illness Narrative DATE OF PHOTOS: 02/25/2022 Body Part: Breasts Padma Philip BELL February 25, 2022 2:51 PM documented in this encounter [facility] 02-25-2022 History of Presen t illness Narrative BREAST RECONSTRUCTION EVALUATION Patient is self-referred. Name: Medina Farrar : 1970 E-mail: [email or web address] Date: February 24, 2022 BMI: There is no height or weight on file to calculate BMI. Race: White Smoking: Tobacco Use: Tobacco Use: Never Side of Diagnosis: BRCA 2 Side of Reconstruction: Bilateral Prior Breast Surgery: Breast Biopsies: Core Bx: RIGHT Breast in 09/2015, which was negative for malignancy. (single focus of ALH was reported on stereo biopsy) Breast Surgeries: Excisional Biopsy: right breast in 10/2015, which was Negative for malignancy Prior Abdominal Surgery: She had RRSO with negative path 06/2021, but still has her uterus CC: Breast reconstruction evaluation HPI: Medina Farrar is a 51 year old female that presents today for breast reconstruction evaluation. Has met with Dr. Thorne and will plan for bilateral mastectomy with breast reconstruction. She is interested in both implant based reconstruction and OLIVIA. Tested positive for BRCA. Biological aunt had breast cancer and HEBREW TEACHER suggested testing. Hx Radiation Therapy: No Hx Chemotherapy: No PAIN : No: 0 on a scale of 0 to 10 Bra Size: B Desired Bra Size: B OB HISTORY: Para: 4 : Patient did breastfeed: length of time 12 months Plan for future pregnancies: No HISTORY OF BREAST DISEASE: No patient history of previous breast disease HISTORY OF BLEEDING/CLOTTING: No PRIOR MAMMOGRAM: Yes, date: 06/12/21, results: IMPRESSION: INCOMPLETE: NEEDS ADDITIONAL IMAGING EVALUATION There is no abnormality seen in the right axilla to correspond with the area of clinical concern indicated by a triangular marker in the right axilla, however, ultrasound is recommended. FAMILY HISTORY OF BREAST CANCER: Yes: maternal grandmother and paternal aunt FAMILY HISTORY OF BLEEDING OR CLOTTING: No PMH: PAST MEDICAL HISTORY Diagnosis Date Anxiety Atypical lobular hyperplasia of breast 2015 Dysmenorrhea Excessive or frequent menstruation Heavy periods Gastric ulcer, unspecified as acute or chronic, without mention of hemorrhage or perforation Other abnormal heart sounds Murmur PSH: PAST SURGICAL HISTORY Procedure Laterality Date BX BREAST W/DEVICE 1ST LESION STEREOTACTIC GUID Left 10-08-13 BX BREAST W/DEVICE 1ST LESION STEREOTACTIC GUID Right 09-01-15 EXC CYST/ABERRANT BREAST TISSUE OPEN /> LESION Right 11/03/2015 2 biopsies HYSTERECTOMY HX 06/23/2021 Uterus remains; ovaries and tubes removed PAST SURGICAL HISTORY OF UMBILICAL HERNIA REPAIR REM LESION NEC,HAND,SCAL<0.5CM 09/29/13 Exc. scalp wens x 5 MEDS: Current Outpatient Medications Medication Sig Dispense Refill LORazepam (ATIVAN) 0.5 mg tab Take 0.5 tablets by mouth twice daily as needed. 15 tablet 0 LORazepam (ATIVAN) 1 mg tablet Take one tablet (1 mg), one hour, before procedure. Take additional tablet, if needed, when you arrive at procedure for anxiety. Do not combine with alcohol or other medications. Do not drive while under the influence of this medication. 1 tablet 0 escitalopram oxalate (LEXAPRO) 10 mg tablet Take 1 tablet by mouth once daily. (Patient taking differently: Take 20 mg by mouth once daily. ) 30 tablet 13 LACTOBACILLUS ACIDOPHILUS (PROBIOTIC ORAL) Take by mouth as needed. acetaminophen (TYLENOL) 325 mg tablet Take 650 mg by mouth every 6 hours as needed. No current facility-administered medications for this visit. SMOKING HISTORY: Nonsmoker (Never Smoked) ETOH USE: None USE OF VITAMIN E, HERBS, ASA, NSAIDS: Vitamins MARITAL STATUS: EMPLOYMENT: Patient is not currently employed EXAM: There is no height or weight on file to calculate BMI. Alert and oriented in NAD Back Exam: no scar; latissimus dorsi muscle function appears to be intact Abdominal Exam: soft, non-tender, non-obese, BS+, non-distended, small scar above umbilical, 2.0 cm peniculus Breast Exam: Asymmetry: L>R Masses: No Axillary Lymphadenopathy: no Scars: None Ptosis: R: Grade III L: Grade III Medially displaced nipple: None Note: measurements are in centimeters SN to NIPPLE: R: 21.5 L: 23 WIDTH: R: 15 L: 16 MIDLINE to NIPPLE: R: 11 L: 14 IMF to NIPPLE: R: 7 L: 7.5 SOZO information No flowsheet data found. Assessment: This is a 51 year old woman with BRCA 2 here today to discuss options for breast reconstruction. The patient is a candidate for bilateral breast reconstruction direct to implant (possible tissue expanders) with AlloDerm An extensive discussion was undertaken with the patient detailing the risks, benefits and alternatives. The effects of radiation on breast reconstruction, should that become a necessary part of her treatment, were discussed. The patient verbalized understanding of these risks. All questions were fully answered. Photographs have been taken and will be sent to the insurance company as necessary. Plan: Appoximate Implant Size: 450 cc Type of Implant: Silicone gel filled Medina Farrar was given supplemental information on breast reconstruction. I have advised her to contact me at any time with further questions she may have regarding breast reconstruction. Consented the patient for bilateral breast reconstruction direct to implant (possible tissue expanders) with AlloDerm. This visit lasted for more than 30 minutes and greater than 50% of the visit was involved in the discussion of the options for treatment. Consultation requested by Dr. Thorne for an opinion regarding Medina Farrar. My final recommendations will be communicated back to the requesting physician by way of shared Medical record or letter to requesting physician via US mail. The patient is seen and examined by Dr. Muñoz and the following reflects his/her service. Scribed by Fay Lynch RN The patient is seen and examined by Dr. Muñoz and the following reflects his/her service. Scribed by Dary Cervantes. I agree with the Chief Complaint, ROS, and Past Histories independently gathered by the clinical it support consultant and the remaining scribed note accurately describes my personal service to the patient. The treatment plan will be carried out with Dr. Thorne. Provider Attestation: I, Danisha Muñoz MD, personally performed the services described in this documentation. All medical record entries made by the scribe were at my direction and in my presence. I have reviewed the chart and discharge instructions (if applicable) and agree that the record reflects my personal performance and is accurate and complete. Dr. Danisha Muñoz MD documented in this encounter [facility] 02-25-2022 History of Presen t illness Narrative REASON FOR TODAY'S VISIT: Patient presents with: New Patient: Surgical consult Medina Farrar is a 51 year old year old white female, former patient, with a BRCA 2 mutation, presents to the [facility], at the request of Dr. Wade Scott for a surgical consult for Risk Reducing Mastectomies. Consult requested for an opinion regarding the evaluation and treatment of a new breast issue. My final impression and recommendations will be communicated back to the requesting physician by way of the shared medical record or letter via US mail. She has had a LEFT breast biopsy in 2013 reporting ADH (side not stated) as well as mutiple benign RIGHT breast benign biopsies with one excision in 2016 revealing a focus of ALH. Declined chemoprevention and has been followed by [facility]. She denies any palpable masses, skin changes, nipple discharge, nipple retraction, breast pain or masses in her axilla. Patient is adopted and at the time of her surgery in 2016 did not know her family history. Patient found her family history which includes history of breast cancer in her maternal grandmother (her in 80's), paternal aunt - stage IV breast cancer age 68 (currently being treated). Maternal grandmother with a history of ovarian cancer as well . Upon discussing this family history with her INSPECTOR GLASS OR MIRROR, genetic testing was ordered Genetic results: 04/16/2021 [facility]reditary Cancer panel by [facility] due to FH and was found to carry Heterozygous likely pathogenic variant,c.9302T>G(p.[id number]) in the BRCA2 gene was detected. Her counseling has been completed by her cleaner assistant Dr Autumn Lucas ([facility] [place]). She underwent a RRSO with negative pathology in 06/[address] Wade Kahn medical breast, and Dr. Glenny Viramontes, breast psychology PAST MEDICAL HISTORY Diagnosis Date Anxiety Atypical lobular hyperplasia of breast 2015 Dysmenorrhea Excessive or frequent menstruation Heavy periods Gastric ulcer, unspecified as acute or chronic, without mention of hemorrhage or perforation Other abnormal heart sounds Murmur ALLERGIES ALLERGIES No Known Allergies Current Outpatient Medications Medication Sig Dispense Refill LORazepam (ATIVAN) 0.5 mg tab Take 0.5 tablets by mouth twice daily as needed. 15 tablet 0 LORazepam (ATIVAN) 1 mg tablet Take one tablet (1 mg), one hour, before procedure. Take additional tablet, if needed, when you arrive at procedure for anxiety. Do not combine with alcohol or other medications. Do not drive while under the influence of this medication. 1 tablet 0 escitalopram oxalate (LEXAPRO) 10 mg tablet Take 1 tablet by mouth once daily. (Patient taking differently: Take 20 mg by mouth once daily. ) 30 tablet 13 LACTOBACILLUS ACIDOPHILUS (PROBIOTIC ORAL) Take by mouth as needed. acetaminophen (TYLENOL) 325 mg tablet Take 650 mg by mouth every 6 hours as needed. No current facility-administered medications for this visit. PAST SURGICAL HISTORY Procedure Laterality Date BX BREAST W/DEVICE 1ST LESION STEREOTACTIC GUID Left 10-08-13 BX BREAST W/DEVICE 1ST LESION STEREOTACTIC GUID Right 09-01-15 EXC CYST/ABERRANT BREAST TISSUE OPEN LESION Right 11/03/2015 2 biopsies HYSTERECTOMY HX 06/23/2021 Uterus remains; ovaries and tubes removed PAST SURGICAL HISTORY OF UMBILICAL HERNIA REPAIR REM LESION NEC,HAND,SCAL<0.5CM 09/29/13 Exc. scalp wens x 5 INSPECTOR GLASS OR MIRROR HISTORY G 4 P 4 Menarche: 15-16 AFB: 25 Breast Fed: Yes, 12-18 months Postmenopausal She entered surgical menopause She had RRSO with negative path 06/2021, but still has her uterus BREAST PROCEDURE HISTORY: Breast Biopsies: Core Bx: RIGHT Breast in 09/2015, which was negative for malignancy. 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 ENVIRONMENTAL TECHNICAL OFFICER: Negative for new frequent or significant headaches. RESP: Negative for cough, wheezing or shortness of breath. CARD: Negative for chest pain, palpitations or leg swelling. GI:Hx of gastric ulcers. Negative for abdominal pain, no change in bowel habits, no blood in stool. : Negative for dysuria, frequency or incontinence. HEME: Patient denies known coagulopathy. INSPECTOR GLASS OR MIRROR: Negative for abnormal vaginal bleeding or abnormal vaginal discharge. BREAST: Patient denies breast pain, skin changes, breast masses and nipple discharge or masses in axilla, as per HPI. MUSCULOSKELETAL:Reports lower back issues that run into my buttock Negative for new joint pain or swelling, no new back or bone pain. SKIN: Negative for lesions, rash, and itching. RADIATION EXPOSURE: There is no history of Radiation Therapy. Judy Crisostomo PA-C PHYSICAL EXAM Ht 5' 6 (1.68m) Wt 150 lb (68.0kg) LMP 05/28/2021 BMI 24.22 kg/(m^2). GENERAL: Well-nourished, healthy, cooperative, female, in no acute distress, alert and oriented x 3, calm SKIN: Warm, dry, skin color, texture and turgor are normal. HEAD/EYES: Normocephalic, atraumatic and anicteric. NECK: Supple, symmetrical, no thyromegaly. RESP: Chest symmetrical with respirations, non-labored, no wheezing. ABD: Soft, non-distended. No hepatomegaly. No masses. MUSCULOSKELETAL: Upper extremities with normal range of motion, no lymphedema present, patient ambulates independently. REGIONAL LYMPH NODES: There is no concerning cervical, supraclavicular, infraclavicular or axillary lymphadenopathy. BREASTS: The patient was examined in the upright and supine positions. Breasts are asymmetric: RIGHT <LEFT SIZE B RIGHT Breast - Soft, no dominant masses, nipple everted, no discharge, no skin changes, periareolar incision 3:00 to 6:00 RIGHT Axilla - No palpable axillary lymphadenopathy. LEFT Breast - Soft, no dominant masses, nipple everted, no discharge, no skin changes LEFT Axilla - No palpable axillary lymphadenopathy. IMAGING BILATERAL DIGITAL DIAGNOSTIC MAMMOGRAM TOMOSYNTHESIS WITH CAD: 06/12/2021 HISTORY: 51 year old BRCA 2 positive patient seen by Martha Garcia CNP today who notes a palpable area of concern in the right axilla. No left breast complaints. RESULT: TECHNIQUE: The study was acquired using full field digital technology and interpreted from soft copy. Digital Breast Tomosynthesis (DBT) images were obtained and used to assist in the interpretation of this examination. Current study was also evaluated with a Computer Aided Detection (CAD). Comparison is made to exams dated: 02/15/2017 mammogram - [facility] and 01/08/2015 mammogram - [facility]. The tissue of both breasts is heterogeneously dense. This may lower the sensitivity of mammography. There are biopsy clips in both breasts. No significant masses, calcifications, or other findings are seen in either breast IMPRESSION: INCOMPLETE: NEEDS ADDITIONAL IMAGING EVALUATION There is no abnormality seen in the right axilla to correspond with the area of clinical concern indicated by a triangular marker in the right axilla, however, ultrasound is recommended. ULTRASOUND OF RIGHT AXILLA: 06/12/2021 RESULT: Comparison is made to exams dated: 02/15/2017 mammogram - [facility] and 01/08/2015 mammogram - [facility]. Ultrasound of the right axilla was performed on the area of interest. No sonographic finding is identified to correspond to the area of fullness in the right axilla. Benign appearing right axillary lymph nodes are incidentally noted. No abnormalities were seen sonographically in the right axilla. IMPRESSION: NEGATIVE There is no sonographic evidence of malignancy. There is no abnormality seen in the right axilla to correspond with the area of clinical concern in the right axilla, however, clinical followup is recommended. SUMMARY: Per MRI biopsy report dated 07/08/16, short interval follow up breast MRI was recommended. Patient is currently overdue for breast MRI. BREAST MRI OF BOTH BREASTS: 07/27/2021 HISTORY: Multiple Diagnoses High risk patient, BRCA2 positive, right ALH on 08/23. RESULT: Comparison is made to exams dated: 06/12/2021 ultrasound, 06/12/2021 mammogram - [facility], 06/15/2016 [facility], 02/15/2017 ultrasound, 02/15/2017 mammogram - [facility], and 07/08/2016 mammogram - [facility]. Informed consent was obtained from the patient. Axial T1 and T2 images were obtained at 1 mm intervals and at 5 mm coronal intervals with a dedicated breast coil. Pre and post contrast images were obtained at 1 minute intervals. Post processing was performed including motion subtraction, color parametric mapping, and 3D multiplanar reconstruction. The patient was studied using the Sentinelle dedicated breast coil in the Siemens 1.5 Sharona scanner. Initial axial STIR imaging was carried out followed by axial T1-weighted GRE imaging both before and after IV administration of 13 ml of Dotarem. Subsequently, subtraction imaging and 3-D reconstruction were completed on an independent workstation. An additional 4 minute high resolution sequence was performed after the first two 1 minute post-contrast sequences. FINDINGS: Bilateral background breast enhancement is mild. A few small foci of progressive enhancement are seen and these are judged to be benign. There is no suspicious mass, distortion, or enhancement in either breast. There are clip artifacts in the right breast at the upper inner breast mid to posterior depth, central anterior depth and 9:00 mid to anterior depth. There is clip artivact in the upper outer breast mid to posterior depth. There are no abnormalities seen in the axillary nodes region. IMPRESSION: BENIGN FINDING No MRI evidence of malignancy. Patient can return to her annual imaging schedule. A 1 year screening mammogram is recommended. The exam was reviewed by a staff physician. PATHOLOGY Pathology reports from [facility] were reviewed and discussed with the Patient. 09/19/2015 FINAL DIAGNOSIS Right breast, calcifications, ribbon clip, 12 o'clock, 1 cm from nipple, ultrasound-guided needle core biopsy (A) - Breast tissue with sclerosing adenosis, columnar cell change, focal stromal fibrosis, and 10/07/2015 FINAL DIAGNOSIS [facility], [place], [place] ([id number], 09/01/2015) Right breast, stereotactic core biopsy - Single microscopic (less than 0.5 mm) focus of atypical lobular hyperplasia (see comment). - Stromal fibrosis, usual ductal hyperplasia, and cysts with microcalcifications. EVELIN/PHILOMENA/hari 09/22/2015 COMMENT The outside E-cadherin stain supports the diagnosis. The microscopic focus of atypia lobular hyperplasia presumably represents an incidental finding. Dr. Ilene Jones reviewed selected slides and concurs. ASSESSMENT: Medina Farrar is a 51-year-old female with a history of atypical lobular hyperplasia. BRCA2 positive Interested in discussing risk reducing mastectomies. PLAN: We discussed that women identified as carriers of mutations in the BRCA2 gene have a substantially increased risk of breast cancer, with an estimated life-time risk of 60-80%. Their management options include close surveillance, chemoprevention, or prophylactic surgery, including prophylactic mastectomy and/or prophylactic oophorectomy. We discussed the risks and benefits of undergoing a risk-reducing prophylactic mastectomy. Prophylactic surgery to remove both breasts can reduce the risk of breast cancer. We did discuss that even with total mastectomy, not all breast tissue that may be at risk of becoming cancerous in the future can be removed. Bilateral prophylactic mastectomy has been shown to reduce the risk of breast cancer by at least 95% in women who have a deleterious (disease-causing) mutation in the BRCA2 gene. We discussed the details of the mastectomy operation. Specifically we discussed the options for mastectomy and the difference between skin sparing and nipple sparing mastectomies and where the surgical scars are usually placed. We discussed options for reconstruction (implant/tissue it technical support specialist vs. autologous OLIVIA free flap procedure). We discussed surgical times and recovery times for all operations. We discussed the risks of surgery including bleeding, infection, skin necrosis, nipple necrosis, nipple loss, likely loss of sensation to the breast skin and nipple, scar formation, lymphedema, and possible need for additional surgery. She is a candidate for nipple sparing mastectomy via an inframammary incision. She is meeting with Dr. Bradley Muñoz today to discuss immediate reconstruction options. Patient states she is interested in having her surgery this fall. She will reach out to us regarding her final surgical plan and potential dates for surgery. My final recommendation will be communicated back to the referring physician by way of shared medical record and/or written letter via US mail. Isis Thorne DO Breast Surgeon cc: Wade Scott [address] [address] Fax: Autumn Lucas MD [address] [place] [id number] Wander Muñoz documented in this encounter [facility] 02-25-2022 Nurse Note Patient was referred by: Did patient bring outside records to appt today? : No Last mammogram on: 06/12/21 bilateral Results: see report Patient current bra size: 34B Is the patient active on mobME Solution[employer] Yes Electronically Signed By: Fay Brambila LPN In Department: [facility] REVIEW OF PATIENT HISTORY: OB History T0 L4 SAB0 IAB0 Ectopic0 Multiple0 Live Births0 Comment: Menarche: 15-16; Age at 1st : 25; Premenopausal 05/28/21-1 granddaughter FAMILY HISTORY Adopted: Yes Problem Relation Age of Onset other (adopted) Son Breast Cancer Paternal Aunt 68 Stage 4; at 71 Breast Cancer Maternal Grandmother 80 other (Other) Maternal Grandmother Ovarian or Uterine Cancer PAST MEDICAL HISTORY Diagnosis Date Anxiety Atypical lobular hyperplasia of breast 2015 Dysmenorrhea Excessive or frequent menstruation Heavy periods Gastric ulcer, unspecified as acute or chronic, without mention of hemorrhage or perforation Other abnormal heart sounds Murmur PAST SURGICAL HISTORY Procedure Laterality Date BX BREAST W/DEVICE 1ST LESION STEREOTACTIC GUID Left 10-08-13 BX BREAST W/DEVICE 1ST LESION STEREOTACTIC GUID Right 09-01-15 EXC CYST/ABERRANT BREAST TISSUE OPEN / LESION Right 11/03/2015 2 biopsies HYSTERECTOMY HX 06/23/2021 Uterus remains; ovaries and tubes removed PAST SURGICAL HISTORY OF UMBILICAL HERNIA REPAIR REM LESION NEC,HAND,SCAL<0.5CM 09/29/13 Exc. 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 She is an established patient in Breast Center who was last seen virtually with Dr Scott 09/16/21 today to discuss her breast care. She is established with Dr Viramontes and has completed consultation with Dr Thorne regarding RRM. Screening MRI of breast was completed 07/27/21 with negative findings. DBT mammogram was completed 06/12/21 with negative findings Today she reports with the passing of her maternal aunt she is interested in pursuing surgery in March. She is in process of getting things in order so that her grandchildren will be provided for as she recovers. She was first diagnosed with ALH on the left side in 2013. It is not mentioned in the chart whether tamoxifen chemoprevention was discussed at that time, but when she developed RIGHT ALH in 2015 (excised by Dr. Thorne), tamoxifen was offered by Sujey in 02/20 and patient declined. 04/16/21 she underwent [facility] Cancer panel by [facility] due to FH and was found to carry Heterozygous likely pathogenic variant,[id number](p.[id number]) in the BRCA2 gene was detected. Her counseling has been completed by her cleaner assistant Dr Autumn Lucas ([facility]). She has intact breast tissue and had RRSO with negative reported pathology 06/23/21. Portions of this encounter note have been copied from Dr Scott previous note dated, 09/16/21, which has been updated where appropriate and all reflect current medical decision making from today, 12/15/21 Her vitamin D level was No results found for: VITD25. She takes no supplements. BMD: No History pertaining to prior breast biopsies, genetic reports, pathology reports, treatment summaries, personal, social and family history has been extracted from Sujey's note dated 06/12/21. PERSONAL BREAST HISTORY: Past breast history (prior to this encounter) is as follows: Breast biopsy: Yes, In Sujey Todd's note dated 02/15/17, it was documented that she had a stereo in 10/19 showing ADH (side not stated) but I was able to find the pathology report from [facility] dated 10/08/13 from a left stereotactic biopsy showing fibrocystic changes and intraductal hyperplasia without atypia and focal minimal ALH (UNEXCISED) (R) stereo core bx 09/01/15 focus ALH(less than 0.5 mm) (EXCISED); (R) u/s core bx 10/21 sclerosing adenosis (ribbon clip) (R) MRI guided bx 10/21 dense stromal fibrosis (hourglass clip); 05/23 Right punch bx sebaceous gland; 07/23 right MRI bx with hourglass - sclerosing adenosis, stromal fibrosis and calcifications. Breast cysts: No Breast surgery: Yes, R NL ex bx's 10/21 at [facility] (site of prior ALH) showed stromal fibrosis and retro areolar, [facility] (Dr Isis Thorne); no biopsy sites or clips were identified. 11/13/15 right diagnostic imaging showed: The barclip, which identified the area of atypia to be excised, is not present on today's exam. There has also been interval decrease in the number of calcifications (calcifications identified on surgical specimen performed 11/03/15.). 05/20 six month follow up imaging showed: There are benign calcifications in the right breast. There also are post operative findings in the right breast. Breast cancer: No CANCER SURVEILLANCE: Mammograms: Yes, Date in [facility]:06/12/21; results - Negative (had ultrasound done for benign LN in right axilla. Breast MRI: Yes, Date in [facility]: 07/27/21 negative Colonoscopy: No RISK FACTORS FOR BREAST CANCER: Age at the onset of menses: 15-16 years of age. P: 4 (Boys ages 16 and 20 Girls ages 21 and 25) Age at the of first child: 24 years of age. She breast fed for 12-18 months with each child. Age at menopause: The patient is not menopausal at this time. Post-menopausal hormone therapy: No She had RRSO with negative path 06/28, but still has her uterus. History of Mantle Radiation prior to the age of 30: No Obesity: No Current Weight: 151 lbs Mammographic density: The breasts are heterogeneously dense which limits the sensitivity of mammography Personal History of Benign Atypical Breast Biopsy: Yes AL Alcohol use: Never PAST MEDICAL HISTORY: PAST MEDICAL HISTORY Diagnosis Date Anxiety Atypical lobular hyperplasia of breast 2015 Dysmenorrhea Excessive or frequent menstruation Heavy periods Gastric ulcer, unspecified as acute or chronic, without mention of hemorrhage or perforation Other abnormal heart sounds Murmur Patient specifically denies history of: DVT, PE, abnormal uterine bleeding, abnormal uterine biopsies, osteopenia and osteoporosis. She does have a history of migraine with aura. PAST SURGICAL HISTORY: PAST SURGICAL HISTORY Procedure Laterality Date BX BREAST W/DEVICE 1ST LESION STEREOTACTIC GUID Left 10-08-13 BX BREAST W/DEVICE 1ST LESION STEREOTACTIC GUID Right 09-01-15 EXC CYST/ABERRANT BREAST TISSUE OPEN 1/> LESION Right 11/03/2015 2 biopsies HYSTERECTOMY HX 06/23/2021 Uterus remains; ovaries and tubes removed PAST SURGICAL HISTORY OF UMBILICAL HERNIA REPAIR REM LESION NEC,HAND,SCAL<0.5CM 09/29/13 Exc. scalp wens x 5 SOCIAL HISTORY: Social History Tobacco Use Smoking status: Never Smoker Smokeless tobacco: Never Used Substance Use Topics Alcohol use: Yes Comment: Seldom Drug use: No Caffeine intake: 2-3 / day Exercise: 1-2 times weekly FAMILY HISTORY: (Adopted) Family history of breast cancer: MGM 80's- and [place] dx stage IV breast cancer age 68 (currently being treated) Family history of ovarian cancer: MGM ovarian cancer Number of sisters: 0 (2 brothers) Number of maternal aunts: ~3 Number of paternal aunts: 1 Ashkenazi Ancestry: No Has Patient had Genetic Testing? Yes [facility] panel testing by [employer] results +BRCA2 Other Cancer: MGM possible uterine or ovarian cancer - There is no family history of prostate, colon, pancreatic, gastric, brain, renal cell or thyroid cancer. - There is no family history of melanoma, sarcoma or leukemia. Osteoporosis: None Stroke: PGF Blood Clot: None Heart attack: PGF Thyroid Nodule or Goiter: None Autism: None FAMILY HISTORY Adopted: Yes Problem Relation Age of Onset other (adopted) Son Breast Cancer Paternal Aunt 68 Stage 4; at 71 Breast Cancer Maternal Grandmother 80 other (Other) Maternal Grandmother Ovarian or Uterine Cancer MEDICATIONS: LORazepam (ATIVAN) 0.5 mg tab Take 0.5 tablets by mouth twice daily as needed. LORazepam (ATIVAN) 1 mg tablet Take one tablet (1 mg), one hour, before procedure. Take additional tablet, if needed, when you arrive at procedure for anxiety.Do not combine with alcohol or other medications. Do not drive while under the influence of this medication. escitalopram oxalate (LEXAPRO) 10 mg tablet Take 1 tablet by mouth once daily. LACTOBACILLUS ACIDOPHILUS (PROBIOTIC ORAL) Take by mouth as needed. acetaminophen (TYLENOL) 325 mg tablet Take 650 mg by mouth every 6 hours as needed. Skin Cleanser Combination No.8 (ZANFEL) clsr Apply 1 application to affected area as needed. mometasone (ELOCON) 0.1 % cream Apply 1 application to affected area once daily as needed. Levonorgestrel-Ethinyl Estrad (AVIANE) 0.1mg - 20mcg per tablet Take 1 tablet by mouth once daily. ALLERGIES: ALLERGIES No Known Allergies REVIEW OF SYSTEMS: She denies chest pain, shortness of breath, persistent cough, severe headaches, unusual bony pains, abdominal pain or unintentional weight loss. PHYSICAL EXAM: Lymph nodes- The supraclavicular, axillary, and cervical regions are free of significant lymphadenopathy. Right breast-The skin, nipple and areola appear normal. There is no skin dimpling with movement of the pectoralis. There is no nipple retraction. No discharge can be elicited. The parenchya is moderately fibrocystic. There is no dominant masses in the breast. The axillary tail is normal. There is no tenderness noted with palpation. Well healed incision noted Left breast- The skin, nipple, and areola appear normal. There is no skin dimpling with movement of the pectoralis. There is no nipple retraction. No discharge can be elicited. The parenchyma is moderately fibrocystic. There is no dominant masses in the breast. The axillary tail is normal. There is no tenderness noted with palpation. IMAGING: Deferred The tissue of both breasts is heterogeneously dense. This may lower the sensitivity of mammography. She has 3 remaining mammographic clips on the right and one on the left. Assessment IMPRESSION/PLAN: Medina Farrar is a 51 year old year old female with bilateral fibrocystic change, dense breasts, and increased risk for breast cancer due to FH/BRCA2 likely PV/ALH bilaterally (unexcised on left) GSM There is no evidence of malignancy. The clinical breast findings were discussed in detail. Her estimated lifetime risk for the development of breast cancer assuming likely pathogenicity of the variant is up to 70% with an average age of diagnosis of 42, and a 30% risk by the age of 50. She is typically predisposed to developing ER+/HER2- breast cancer. She meets ACS/NCCN criteria for screening MRI between the ages of 25 and 75 with the addition of mammography (consideration of tomosynthesis) beginning at age 30. She requires Ativan premendation. Encouraged to follow up with Dr Thorne so that she may get scheduled accordingly for surgical planning in March Genetics referral made:YES: Reason: BRCA2 positive as above, but has not had formal counseling; I have entered her likely pathogenic variant into [employer]. 12/31/2020 there were conflicting interpretations of pathogenicity. I have spoken with Neymar Yadav today regarding her variant, and both [facility] and [facility] agree with the likely pathogenic classification. She will be formally referred to our genetics program to comment on their interpretation of her variant. There is no FH of pancreatic cancer. Her daughters are 26 and 21 and untested. We discussed that the eldest could get MRI screening even if she doesn't feel ready to test and that the younger one would not begin screening until 25.. PGT was discussed for all 4. She has been counseled on annual skin checks. Discussed single site testing for her brothers. She was planning to discuss genetic with her daughters as instructed by [facility]. Chemoprevention discussion: Chemoprevention was discussed at length with the patient. Two medications are FDA approved for breast cancer risk reduction in the post-menopausal woman, tamoxifen and raloxifene. Both are selective estrogen receptor modulators which stimulate the estrogen receptors in some tissues and block them in others. In the NSABP STAR Trial, they were compared, both showing similar breast cancer risk reduction (40-50%). While tamoxifen was associated with a 1-3% risk of uterine cancer and a 2.1% risk of blood clots, raloxifene was not associated with an increased risk of uterine cancer and was associated with a lower risk of blood clots, at 1.6%. In larger meta-analyses studies, the risk of blood clots was felt to be closer to 1%. She understands that common side effects include hot flashes, night sweats and vaginal dryness or discharge. She also understands that another option for prevention in the post-menopausal woman which is recommended by ASCO but not yet FDA approved are aromatase inhibitors such as arimidex or aromasin, which may reduce the risk of breast cancer by 55-65%, are not associated with an increased risk of uterine cancer or blood clots, but can be associated with a 2-7% risk of bone density loss. Common side effects include hot flashes, night sweats, vaginal dryness and arthralgias. I would NOT recommend a SERM given her history of migraine with aura and we discussed exemestane. We discussed efficacy in BRCA2 as well as with AH. She was given an informational brochure, the [place] Atypia paper, the map.3 trial paper and is unsure about what she would like to do. A discussion was had regarding GENRE study and she was contacted by plan coordinator She is leaning toward RRM. The patient is advised to exercise regularly, achieve/maintain ideal body weight, and to limit alcohol consumption to less than 7 drinks weekly for breast cancer risk reduction and overall health. Regarding her GSM, she will start with Replens and coconut oil, was given the vaginal dryness handout, and knows to reach out if she would like to try local vaginal estrogen. She will return in 6 months for exam and mammogram if she hasn't had RRM. Next MRI 12/2022. I will refer back to Dr Scott after 09/16/2024. She will call me in the interim should she have any questions or concerns. I spent a total of 28 minutes on the date of the service which included preparing to see the patient, [id number] patient care, completing clinical documentation, obtaining and/or reviewing separately obtained history, performing a medically appropriate examination, counseling and educating the patient/family/caregiver, ordering medications, tests, or procedures, communicating with other HCPs (not separately reported), independently interpreting results (not separately reported), communicating results to the patient/family/caregiver and care coordination (not separately reported). Sujey Garcia APRN.LIOR Medical Breast Specialist Women's Health Nurse Practitioner CC:Autumn Lucas MD [address] [place] [address] documented in this encounter [facility] 12-15-2021 Nurse Note Last mammogram on: 06/12/2021 Results: see report Is the patient active on MyChart Yes Electronically Signed By: Jessica Dunham Ma In Department: [facility] REVIEW OF PATIENT HISTORY: OB History T0 L4 SAB0 IAB0 Ectopic0 Multiple0 Live Births0 Comment: Menarche: 15-16; Age at 1st : 25; Premenopausal 05/28/21-1 granddaughter FAMILY HISTORY Adopted: Yes Problem Relation Age of Onset other (adopted) Son Breast Cancer Paternal Aunt 68 Stage 4 Breast Cancer Maternal Grandmother 80 other (Other) Maternal Grandmother Ovarian or Uterine Cancer PAST MEDICAL HISTORY Diagnosis Date Anxiety Atypical lobular hyperplasia of breast 2015 Dysmenorrhea Excessive or frequent menstruation Heavy periods Gastric ulcer, unspecified as acute or chronic, without mention of hemorrhage or perforation Other abnormal heart sounds Murmur PAST SURGICAL HISTORY Procedure Laterality Date BX BREAST W/DEVICE 1ST LESION STEREOTACTIC GUID Left 10-08-13 BX BREAST W/DEVICE 1ST LESION STEREOTACTIC GUID Right 09-01-15 EXC CYST/ABERRANT BREAST TISSUE OPEN 1/> LESION Right 11/03/2015 2 biopsies PAST SURGICAL HISTORY OF UMBILICAL HERNIA REPAIR REM LESION NEC,HAND,SCAL<0.5CM 09/29/13 Exc. scalp wens x 5 Social History Tobacco Use Smoking status: Never Smoker Smokeless tobacco: Never Used Substance Use Topics Alcohol use: Yes Comment: Seldom Drug use: No documented in this encounter [facility] 12-15-2021 Instructions Jessica Dunham Ma - 12/15/2021 10:36 AM EDT General Breast Health Recommendations A healthy body helps promote healthy breasts. If you smoke, please consider a smoking cessation program. If you do not exercise, please consider starting an exercise program if you are able to, even if it is just walking in your neighborhood. Research shows that obesity, especially post-menopausal obesity, is a risk factor for breast cancer. Obtaining calcium in your diet or taking a calcium supplement that contains vitamin D is good for your bones. There is evolving evidence that Vitamin D supplementation may also help to decrease breast cancer risk. If you are post-menopausal and are bothered by hot flashes and still have a uterus, combined estrogen-progesterone preparations can increase your risk of breast cancer if taken for longer than five years. Alcohol is also an under-recognized risk factor. Every drink you have daily increases your breast cancer risk by 10%. Mammograms save lives. Have an annual mammogram annually beginning at age 40. Continue annual mammograms as long as you remain in good health. Breast self-exam, performed on day 7 of your menstrual cycle, can also be very helpful. Know your breasts and report changes to your health care provider or breast specialist. Clinical breast exams by your primary care provider or breast specialist are recommended annually every 1-3 years for women over the age of 20 and annually after the age of 40. Increased frequency of the clinical exam may be recommended for women at increased risk of breast cancer. Risk factors for breast cancer: Being a woman Family history of breast cancer Early menarche (onset of menses) prior to age 13 Nulliparity (never had children) First child after age 30 Late menopause (stopping of periods) after age 55 History of breast biopsy that showed atypical cells (ADH, ALH, LCIS, FEA) Presence of a genetic mutation (BRCA1, BRCA2, PTEN, P53, CDH1) History of chest wall irradiation (such as with Hodgkin's Lymphoma) prior to age 30 Personal history of breast cancer Post-menopausal Obesity Combined hormone therapy (estrogen and progesterone) for greater than 5 years Alcohol consumption of greater than 7 alcohol-containing drinks per week Breast density If you have a family history of breast or ovarian cancer, review this with your primary care provider or breast specialist to see if a referral for genetic counseling is recommended. 5-10% of breast cancers and up to 15% of ovarian cancers are linked to a genetic mutation. Signs of hereditary breast cancer syndrome include breast cancer that occurs under the age of 50, ovarian cancer at any age, male breast cancer, multiple family members affected with breast cancer, and a history of Ashkenazi Congregation ancestry. Breast pain is very common and usually is not a sign of cancer, but should be evaluated by a breast specialist. For comfort, simply reducing caffeine (coffee, tea, chocolate, energy drinks, sodas) in your diet can provide relief. A properly fitted bra can also be helpful in reducing breast pain. If those two measures do not provide relief, taking Evening Chanute Oil 1000mg capsules twice a day for a short period of time (three to four months) may be helpful. Many women wonder about their breast density. Dense breast tissue is, in and of itself, a relatively common condition which could hide abnormalities in a screening mammogram. This information is not provided to cause undue concern; rather, it is to raise your awareness and promote discussion with your health care provider regarding the presence of dense breast tissue in addition to other risk factors. If you would like to compliment one of our caregivers you encountered today, you may do so at [email or web address]. Thank you ! documented in this encounter [facility] 11-18-2021 Miscellaneous Notes Pt calling office regarding surgical consult with and . Answered questions regarding restrictions after surgery and virtual vs in person appointment. She is going to look at her schedule and see what is the best timing to come in and call me back to schedule. Fay Brambila LPN documented in this encounter [facility] 11-18-2021 History of Presen t illness Narrative [facility] Progress Note November 19, 2021 Billing codes: T08 WANDER CPT Code: 59626 Psychotherapy 38-52 minutes Start/Stop Time: 11:13-12 PM Collateral Parties Present: none Date of First Session this Cycle: 08/2021 Session #: 2 Virtual Visit Check: Visit performed via telehealth.Audio/visual connection was good. Confirmed the patient was in a private space with minimized distractions and no additional people were in the room. Informed consent to deliver services via telehealth was discussed. The patient is aware of the benefits of telehealth and is in agreement to participate. Originating site for client is [place]. Originating site for provider is [place]. Subjective: Pt reports increased motivation for surgery following the of her aunt who encouraged her to complete preventive surgery. She is gathering more information for her decision. Pt considered exemestane/chemoprevention but pt is concerned about risk of uterine cancer. She continues to have questions for surgeons and we worked together to compile these. She does have significant anxiety, including about childcare for grandchildren when she recovers. Discussed problem solving steps and engaged pt in cognitive restructuring. Patient mood is: Anxious. Affect is: Mood congruent. Patient denies any suicidal or homicidal ideation, plan or intent at this time. PSYCHOLOGY SCREENING/TESTING: PHQ-9 All Questions 09/16/2021 11/18/2021 Little interest or pleasure in doing things 0 1 Feeling down, depressed, or hopeless 0 0 Trouble falling or staying asleep, or sleeping too much 1 0 Feeling tired or having little energy 1 1 Poor appetite or overeating 1 0 Feeling bad about yourself - or that you are a failure or have let yourself or your family down 0 0 Trouble concentrating on things, such as reading the newspaper or watching television 0 0 Moving or speaking so slowly that other people could have noticed. Or the opposite - being so fidgety or restless that you have been moving around a lot more than usual 0 0 Thoughts that you would be better off , or of hurting yourself in some way 0 0 PHQ-9 Score 3 2 (0-4) minimal depression, (5-9) mild depression, (10-14) moderate depression, (15-19) moderately severe depression, (20-27) severe depression DANIEL-7 All Questions 09/16/2021 11/18/2021 Nervous, anxious or on edge 1 1 Not being able to stop or control worrying 0 0 Worrying too much 1 1 Trouble relaxing 0 1 Restless 0 0 Annoyed or irritable 1 0 Afraid something awful might happen 0 0 DANIEL-7 Score 3 3 (0-4) minimal anxiety, (5-9) mild anxiety, (10-14) moderate anxiety, (15-21) severe anxiety Objective: Pt on time; not tearful, rapid speech Assessment: Generalized Anxiety Disorder Psychological Factors Affecting a Medical Condition Fibrocystic Breast Changes/BRCA2 Current GAF: 60-51 Moderate symptoms or moderate difficulty in social, occupational or school functioning. Current Outpatient Medications Medication Sig Skin Cleanser Combination No.8 (ZANFEL) clsr Apply 1 application to affected area as needed. mometasone (ELOCON) 0.1 % cream Apply 1 application to affected area once daily as needed. LORazepam (ATIVAN) 0.5 mg tab Take 0.5 tablets by mouth twice daily as needed. LORazepam (ATIVAN) 1 mg tablet Take one tablet (1 mg), one hour, before procedure. Take additional tablet, if needed, when you arrive at procedure for anxiety. Do not combine with alcohol or other medications. Do not drive while under the influence of this medication. escitalopram oxalate (LEXAPRO) 10 mg tablet Take 1 tablet by mouth once daily. (Patient taking differently: Take 20 mg by mouth once daily. ) Levonorgestrel-Ethinyl Estrad (AVIANE) 0.1mg - 20mcg per tablet Take 1 tablet by mouth once daily. LACTOBACILLUS ACIDOPHILUS (PROBIOTIC ORAL) Take by mouth as needed. acetaminophen (TYLENOL) 325 mg tablet Take 650 mg by mouth every 6 hours as needed. No current facility-administered medications for this visit. Medication Changes: Patient appears to have been compliant in taking his/her medication as prescribed. Plan/Recommendations:Questions for surgeon: How long for recovery? 6-8 weeks? How long before I can lift 26-32 lbs. Had prior negative experience with procedures--can we make a plan for nausea post op? Plan for anxiety-Ativan, continue Lexapro 20 mg, Plan for surgery--ear patch for nausea. She had a good experience with oophrectomy. Ativan before surgery Needs to schedule with surgeons [phone]. Next visit: scanxiety/MRI Number of weeks till next appointment: 4 Lakeisha Viramontes, Ph.D., ABPP Psychologist [facility] documented in this encounter [facility] Diagnosis Fibrocystic breast changes of both breasts- Primary BRCA2 gene mutation positive Dense breast Inconclusive mammogram Atypical lobular hyperplasia (ALH) of right breast Encounter for screening mammogram for high-risk patient [facility] Diagnosis Atypical lobular hyperplasia (ALH) of right breast- Primary BRCA2 positive Genetic susceptibility to malignant neoplasm of breast [facility] Diagnosis BRCA2 positive- Primary Genetic susceptibility to malignant neoplasm of breast Prophylactic breast [facility] Diagnosis BRCA2 gene mutation positive- Primary [facility] Diagnosis BRCA2 positive- Primary Genetic susceptibility to malignant neoplasm of breast BRCA2 positive Genetic susceptibility to malignant neoplasm of breast [facility] Diagnosis Pre-operative examination- Primary Preoperative examination, unspecified Anxiety Anxiety state, unspecified Gastroesophageal reflux disease, unspecified whether esophagitis present BRCA2 positive Genetic susceptibility to malignant neoplasm of breast Prophylactic breast removal BRCA2 positive Genetic susceptibility to malignant neoplasm of breast [facility] Diagnosis BRCA2 positive- Primary Genetic susceptibility to malignant neoplasm of breast BRCA2 positive Genetic susceptibility to malignant neoplasm of breast [facility] Diagnosis Prophylactic breast removal- Primary BRCA2 positive Genetic susceptibility to malignant neoplasm of breast documented in this encounter [facility] note* Diagnosis Post-operative state- Primary Other postprocedural status Acute post-operative pain documented in this encounter [facility] note* Diagnosis Post-operative state- Primary Other postprocedural status documented in this encounter [facility] note* Diagnosis Post-operative state- Primary Other postprocedural status documented in this encounter [facility] note* Diagnosis S/P mastectomy, bilateral- Primary Acquired absence of breast and nipple Post-operative state Other postprocedural status documented in this encounter [facility] note* Diagnosis BRCA2 positive- Primary Genetic susceptibility to malignant neoplasm of breast documented in this encounter [facility] note* Diagnosis BRCA2 positive- Primary Genetic susceptibility to malignant neoplasm of breast Prophylactic breast removal documented in this encounter [facility] note* Diagnosis Post-operative state- Primary Other postprocedural status documented in this encounter [facility] note* Diagnosis S/P mastectomy, bilateral- Primary Acquired absence of breast and nipple documented in this encounter [facility] note* Diagnosis Suture reaction, initial encounter- Primary S/P mastectomy, bilateral Acquired absence of breast and nipple BRCA2 gene mutation positive documented in this encounter [facility] note* Diagnosis S/P mastectomy, bilateral- Primary Acquired absence of breast and nipple documented in this encounter [facility] note* Diagnosis S/P mastectomy, bilateral- Primary Acquired absence of breast and nipple documented in this encounter [facility] for referral (narrative)* Outpatient Procedure (Routine) - Closed Specialty Diagnoses / Procedures Referred By Donovan t Referred To [facility] Diagnoses Pre-operative examination Procedures ECG COMPLETE ECG ROUTINE ECG W/LEAST 12 LDS W/I&R Ángela Vivar APRN.CNP [address] [place] [address] [facility] [address] [place] [address] Referral ID Status Reason Start Date Expiration Date V isits Requested Visits Authorized [id number] Closed Auto-Generate d Referral 05/07/2022 05/07/2023 1 1 [facility] Advance Directives No Advanced Directives Records FoundDocuments on File Type Date Recorded 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 Advance Directive(s) 11/03/2015 8:02 AM Documents on File Type Date Recorded 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 Advance Directive(s) 11/03/2015 8:02 AM Reason for Referral Specialty Diagnoses / Procedures Referred By Contac t Referred To Contact Diagnoses BRCA2 positive Prophylactic breast removal Procedures IN PERSON CONSULT TO PACC Judy Crisostomo PA-C [id number] [id number] Referral ID Status Reason Start Date Expiration Date Visits Requested Visits Authorized [id number] Ref Not Required PCP Requested Referral 03/01/2022 05/30/2022 1 1 Specialty Diagnoses / Procedures Referred By Contac t Referred To Contact [facility] Diagnoses S/P mastectomy, bilateral Procedures CONSULT TO BREAST REHAB PROGRAM THERAPEUTIC EXERCISES RE, EA 15 MIN. THERAPEUT ACTVITY DIRECT PT CONTACT EACH 15 MIN Mariana Sun APRN.CNP [address] [id number] [facility] [address] [address] Referral ID Status Reason Start Date Expiration Date Visits Requested Visits Authorized [id number] Pending Review PCP Requested Referral Auto-Generate d Referral 2 07/02/2023 1 1 Specialty Diagnoses / Procedures Referred By Contac t Referred To Contact Gastroenterology Diagnoses BRCA2 positive Procedures CONSULT TO GASTROENTEROLOGY OFFICE/OUTPATIENT [facility] MDM 60-74 MINUTES Judy Crisostomo PA-C [id number] [id number] Referral ID Status Reason Start Date Expiration Date Visits Requested Visits Authorized [id number] Pending Review PCP Requested Referral 2 07/07/2023 1 1 Specialty Diagnoses / Procedures Referred By Contac t Referred To Contact [facility] Diagnoses S/P mastectomy, bilateral Procedures PT REHAB FOLLOW UP ORDER THERAPEUTIC EXERCISES RE, EA 15 MIN. Keisha Turner, PT [facility] [address] [place], [place] [id number] Referral ID Status Reason Start Date Expiration Date Visits Requested Visits Authorized [id number] Pending Review PCP Requested Referral Auto-Generate d Referral 08/11/2022 11/09/2022 1 1 Summary Purpose Family History No Family History Records FoundNo Family History Records Found Additional Source Comments Source Comments (unrecognize d section and content) In the event this informatio n is protected by the Federal Confidentiality of Alcohol and Drug Abuse Patient Records regulations: The Federal rules restrict any use of the information to criminally investigate or prosecute any alcohol or drug abuse patient.[facility] event this information is protected by the Federal Confidentiality of Alcohol and Drug Abuse Patient Records regulations: The Federal rules restrict any use of the information to criminally investigate or prosecute any alcohol or drug abuse patient.[facility] the event this information is protected by the Federal Confidentiality of Alcohol and Drug Abuse Patient Records regulations: The Federal rules restrict any use of the information to criminally investigate or prosecute any alcohol or drug abuse patient.[facility] the event this information is protected by the Federal Confidentiality of Alcohol and Drug Abuse Patient Records regulations: The Federal rules restrict any use of the information to criminally investigate or prosecute any alcohol or drug abuse patient.[facility] the event this information is protected by the Federal Confidentiality of Alcohol and Drug Abuse Patient Records regulations: The Federal rules restrict any use of the information to criminally investigate or prosecute any alcohol or drug abuse patient.[facility] the event this information is protected by the Federal Confidentiality of Alcohol and Drug Abuse Patient Records regulations: The Federal rules restrict any use of the information to criminally investigate or prosecute any alcohol or drug abuse patient.[facility] the event this information is protected by the Federal Confidentiality of Alcohol and Drug Abuse Patient Records regulations: The Federal rules restrict any use of the information to criminally investigate or prosecute any alcohol or drug abuse patient.[facility] the event this information is protected by the Federal Confidentiality of Alcohol and Drug Abuse Patient Records regulations: The Federal rules restrict any use of the information to criminally investigate or prosecute any alcohol or drug abuse patient.[facility] the event this information is protected by the Federal Confidentiality of Alcohol and Drug Abuse Patient Records regulations: The Federal rules restrict any use of the information to criminally investigate or prosecute any alcohol or drug abuse patient.[facility] the event this information is protected by the Federal Confidentiality of Alcohol and Drug Abuse Patient Records regulations: The Federal rules restrict any use of the information to criminally investigate or prosecute any alcohol or drug abuse patient.[facility] the event this information is protected by the Federal Confidentiality of Alcohol and Drug Abuse Patient Records regulations: The Federal rules restrict any use of the information to criminally investigate or prosecute any alcohol or drug abuse patient.[facility] the event this information is protected by the Federal Confidentiality of Alcohol and Drug Abuse Patient Records regulations: The Federal rules restrict any use of the information to criminally investigate or prosecute any alcohol or drug abuse patient.[facility] the event this information is protected by the Federal Confidentiality of Alcohol and Drug Abuse Patient Records regulations: The Federal rules restrict any use of the information to criminally investigate or prosecute any alcohol or drug abuse patient.[facility] the event this information is protected by the Federal Confidentiality of Alcohol and Drug Abuse Patient Records regulations: The Federal rules restrict any use of the information to criminally investigate or prosecute any alcohol or drug abuse patient.[facility] the event this information is protected by the Federal Confidentiality of Alcohol and Drug Abuse Patient Records regulations: The Federal rules restrict any use of the information to criminally investigate or prosecute any alcohol or drug abuse patient.[facility] the event this information is protected by the Federal Confidentiality of Alcohol and Drug Abuse Patient Records regulations: The Federal rules restrict any use of the information to criminally investigate or prosecute any alcohol or drug abuse patient.[facility] the event this information is protected by the Federal Confidentiality of Alcohol and Drug Abuse Patient Records regulations: The Federal rules restrict any use of the information to criminally investigate or prosecute any alcohol or drug abuse patient.[facility] the event this information is protected by the Federal Confidentiality of Alcohol and Drug Abuse Patient Records regulations: The Federal rules restrict any use of the information to criminally investigate or prosecute any alcohol or drug abuse patient.[facility] the event this information is protected by the Federal Confidentiality of Alcohol and Drug Abuse Patient Records regulations: The Federal rules restrict any use of the information to criminally investigate or prosecute any alcohol or drug abuse patient.[facility] the event this information is protected by the Federal Confidentiality of Alcohol and Drug Abuse Patient Records regulations: The Federal rules restrict any use of the information to criminally investigate or prosecute any alcohol or drug abuse patient.[facility] the event this information is protected by the Federal Confidentiality of Alcohol and Drug Abuse Patient Records regulations: The Federal rules restrict any use of the information to criminally investigate or prosecute any alcohol or drug abuse patient.[facility] the event this information is protected by the Federal Confidentiality of Alcohol and Drug Abuse Patient Records regulations: The Federal rules restrict any use of the information to criminally investigate or prosecute any alcohol or drug abuse patient.[facility] the event this information is protected by the Federal Confidentiality of Alcohol and Drug Abuse Patient Records regulations: The Federal rules restrict any use of the information to criminally investigate or prosecute any alcohol or drug abuse patient.[facility] the event this information is protected by the Federal Confidentiality of Alcohol and Drug Abuse Patient Records regulations: The Federal rules restrict any use of the information to criminally investigate or prosecute any alcohol or drug abuse patient.[facility] the event this information is protected by the Federal Confidentiality of Alcohol and Drug Abuse Patient Records regulations: The Federal rules restrict any use of the information to criminally investigate or prosecute any alcohol or drug abuse patient.[facility] the event this information is protected by the Federal Confidentiality of Alcohol and Drug Abuse Patient Records regulations: The Federal rules restrict any use of the information to criminally investigate or prosecute any alcohol or drug abuse patient.[facility] the event this information is protected by the Federal Confidentiality of Alcohol and Drug Abuse Patient Records regulations: The Federal rules restrict any use of the information to criminally investigate or prosecute any alcohol or drug abuse patient.[facility] the event this information is protected by the Federal Confidentiality of Alcohol and Drug Abuse Patient Records regulations: The Federal rules restrict any use of the information to criminally investigate or prosecute any alcohol or drug abuse patient.[facility] the event this information is protected by the Federal Confidentiality of Alcohol and Drug Abuse Patient Records regulations: The Federal rules restrict any use of the information to criminally investigate or prosecute any alcohol or drug abuse patient.[facility] the event this information is protected by the Federal Confidentiality of Alcohol and Drug Abuse Patient Records regulations: The Federal rules restrict any use of the information to criminally investigate or prosecute any alcohol or drug abuse patient.[facility] the event this information is protected by the Federal Confidentiality of Alcohol and Drug Abuse Patient Records regulations: The Federal rules restrict any use of the information to criminally investigate or prosecute any alcohol or drug abuse patient.[facility] the event this information is protected by the Federal Confidentiality of Alcohol and Drug Abuse Patient Records regulations: The Federal rules restrict any use of the information to criminally investigate or prosecute any alcohol or drug abuse patient.[facility] Care Teams (unrecognized sec tion and content) Upper Cutter Machine Relationship Specialty Start Date End Date ShayyAutumn PCP - General HEBREW TEACHER 05/28/16 Upper Cutter Machine Relationship Specialty Start Date End Date WilliamAutumn christina PCP - General HEBREW TEACHER 05/28/16 Upper Cutter Machine Relationship Specialty Start Date End Date Shayy Autumn PCP - General HEBREW TEACHER 05/28/16 Upper Cutter Machine Relationship Specialty Start Date End Date Shayy Autumn PCP - General HEBREW TEACHER 05/28/16 Upper Cutter Machine Relationship Specialty Start Date End Date Autumn Lucas PCP - General HEBREW TEACHER 05/28/16 Upper Cutter Machine Relationship Specialty Start Date End Date Autumn Lucas PCP - General HEBREW TEACHER 05/28/16 Upper Cutter Machine Relationship Specialty Start Date End Date Autumn Lucas PCP - General HEBREW TEACHER 05/28/16 Upper Cutter Machine Relationship Specialty Start Date End Date Autumn Lucas PCP - General HEBREW TEACHER 05/28/16 Upper Cutter Machine Relationship Specialty Start Date End Date Autumn Lucas PCP - General HEBREW TEACHER 05/28/16 Upper Cutter Machine Relationship Specialty Start Date End Date Autumn Lucas PCP - General HEBREW TEACHER 05/28/16 Upper Cutter Machine Relationship Specialty Start Date End Date Autumn Lucas PCP - General HEBREW TEACHER 05/28/16 Upper Cutter Machine Relationship Specialty Start Date End Date Autumn Lucas PCP - General HEBREW TEACHER 05/28/16 Upper Cutter Machine Relationship Specialty Start Date End Date Autumn Lucas PCP - General HEBREW TEACHER 05/28/16 Upper Cutter Machine Relationship Specialty Start Date End Date Autumn Lucas PCP - General HEBREW TEACHER 05/28/16 Upper Cutter Machine Relationship Specialty Start Date End Date Autumn Lucas PCP - General HEBREW TEACHER 05/28/16 Upper Cutter Machine Relationship Specialty Start Date End Date Autumn Lucas PCP - General HEBREW TEACHER 05/28/16 Upper Cutter Machine Relationship Specialty Start Date End Date Autumn Lucas PCP - General HEBREW TEACHER 05/28/16 Reason for Visit (unrecogniz ed section and content) Specialty Diagnoses / Procedures Referred By Ezekielac t Referred To Contact [facility] Diagnoses S/P mastectomy, bilateral Procedures CONSULT TO BREAST REHAB PROGRAM THERAPEUTIC EXERCISES RE, EA 15 MIN. THERAPEUT ACTVITY DIRECT PT CONTACT EACH 15 MIN Mariana Sun APRN.TUFT MACHINE OPERATOR [address] [id number] [facility] [place] [address] [place] [address] Referral ID Status Reason Start Date Expiration Date V isits Requested Visits Authorized [id number] Authorized 08/11/2022 08/07/2023 20 20 Reason Comments Post Op Bilat Breast Recon, discoloration to bilat breast Specialty Diagnoses / Procedures Referred By Donovan t Referred To Contact Plastic Surgery / PLASTIC SURGERY Diagnoses Follow-up exam consult brest recon per dr thorne Procedures OFFICE/OUTPATIENT NEW MODERATE MDM 45-59 MINUTES NEW DPSI BREAST RECON Self(Historical) Danisha Muñoz MD [address] [id number] Referral ID Status Reason Start Date Expiration Date V isits Requested Visits Authorized [id number] Authorized 05/06/2022 05/06/2023 4 4 Reason Comments Post Op Specialty Diagnoses / Procedures Referred By Donovan t Referred To Contact Plastic Surgery / PLASTIC SURGERY Diagnoses Post-operative state Post op - Ok per AB and NQ Procedures OFFICE/OUTPATIENT ESTABLISHED MOD MDM 30-39 MIN POST OP Mariana Sun APRN.TUFT MACHINE OPERATOR [address] [place] [address] Mariana Sun APRN.TUFT MACHINE OPERATOR [address] [place] [address] Referral ID Status Reason Start Date Expiration Date Visits Re quested Visits Authorized [id number] Closed 06/10/2022 09/08/2022 1 1 Specialty Diagnoses / Procedures Referred By Donovan t Referred To Contact General Surgery / GENERAL SURGERY Diagnoses BRCA2 gene mutation negative 9:30A IMAGING; BRCA2+; last seen [place] 02/2017 Procedures NEW PATIENT VISIT LEVEL 5 [facility] Self Sujey Garcia APRN.TUFT MACHINE OPERATOR [address] [place] [address] Referral ID Status Reason Start Date Expiration Date Visits Re quested Visits Authorized [id number] Closed 06/12/2021 06/12/2022 4 4 Reason Comments Appointment Reason Comments Follow Up Specialty Diagnoses / Procedures Referred By Donovan gutierres Referred To Contact Psychology / GENS BR PSYL MAIN Diagnoses 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 NEW CONSULT HIGH RISK Procedures PHYS/QHP TELEPHONE EVALUATION 5-10 MIN VIDEO PSYC/PSYL Sujey Crews, RISK SPECIALIST.TUFT MACHINE OPERATOR [address] [place] [address] Lakeisha Viramontes, PhD [address] [place] [address] Referral ID Status Reason Start Date Expiration Date V isits Requested Visits Authorized [id number] Closed Patient Cleared - Admin/Chairm an/Director advise to proceed 09/10/2021 03/10/2022 1 1 Reason Comments Established Patient 3 month follow up; V V with Efren 09/16; BRCA2+; PA who had breast cancer has - 71 years old; she is planning to get risk reducing surgery with Mati middle of March; MRI 07/27/21; mamm 06/12/21; no breast concerns at this time Referral ID Status Reason Start Date Expiration Date V isits Requested Visits Authorized [id number] Authorized 06/12/2021 06/12/2022 4 4 Reason Comments PHOTOS TAKEN Reason Comments New Patient Surgical consult Specialty Diagnoses / Procedures Referred By Donovan gutierres Referred To Contact Breast Diseases / GENERAL SURGERY Diagnoses Fibrocystic breast changes of both breasts brca 2 pos Procedures OFFICE/OUTPATIENT NEW MODERATE MDM 45-59 MINUTES [facility] Wade Scott MD [address] [place] [address] [place] [address] [place] [address] Referral ID Status Reason Start Date Expiration Date V isits Requested Visits Authorized [id number] Authorized 01/29/2022 01/29/2023 20 20 Reason Comments Consult Recon Specialty Diagnoses / Procedures Referred By Contac t Referred To Contact General Surgery / GENERAL SURGERY Diagnoses BRCA2 gene mutation negative 9:30A IMAGING; BRCA2+; [place] seen [place] 02/2017 Procedures NEW PATIENT VISIT LEVEL 5 [facility] Self, Sujey Tracey, RISK SPECIALIST.TUFT MACHINE OPERATOR [address] [place] [address] Reason Comments Consult Specialty Diagnoses / Procedures Referred By Contac t Referred To Contact Anesthesiology / ANESTHESIOLOGY Diagnoses Follow-up examination Mast, Dr. Thorne [facility] 05/25 Procedures OFFICE/OUTPATIENT ESTABLISHED MOD [facility] 30-39 MIN COMPLETE PACC Judy Crisostomo PA-C [address] [place] [address] 1, Pacc [place] [address] [place] [address] Referral ID Status Reason Start Date Expiration Date Visits Re quested Visits Authorized [id number] Closed 05/07/2022 08/07/2022 1 1 Reason Comments Patient Education Bilateral NS Risk re ducing Mastectomies with recon Reason Comments Education Of Patient/family Post-op visi t Reason Comments Post Op Call Reason Comments Post Op Follow Up Reason Comments Patient Update Nurse Navigation Reason Comments Post Op Partha Breast recon Referral ID Status Reason Start Date Expiration Date Visits Re quested Visits Authorized [id number] Closed 05/06/2022 05/06/2023 2 1 Specialty Diagnoses / Procedures Referred By Contac t Referred To Contact Plastic Surgery / PLASTIC SURGERY Diagnoses Other specified postprocedural states post op Procedures OFFICE/OUTPATIENT ESTABLISHED MOD [facility] 30-39 MIN VIDEO SPEC EST Mariana Sun, RISK SPECIALIST.TUFT MACHINE OPERATOR [address] [place] [address] Mariana Sun APRN.TUFT MACHINE OPERATOR [address] [place] [address] Referral ID Status Reason Start Date Expiration Date Visits Re quested Visits Authorized [id number] Closed 05/06/2022 04/26/2023 1 1 Reason Comments Post Op Specialty Diagnoses / Procedures Referred By Contac t Referred To Contact GENERAL SURGERY Diagnoses Fibrocystic breast changes of both breasts brca 2 pos Procedures OFFICE/OUTPATIENT NEW MODERATE MDM 45-59 MINUTES [facility] Wade Scott MD [address] [place] [address] [place] [address] [place] [address] Referral ID Status Reason Start Date Expiration Date V isits Requested Visits Authorized [id number] Authorized 01/29/2022 01/29/2023 20 21 Reason Comments Established Patient Specialty Diagnoses / Procedures Referred By Contac t Referred To Contact GENERAL SURGERY Diagnoses Fibrocystic breast changes of both breasts brca 2 pos Procedures OFFICE/OUTPATIENT NEW MODERATE MDM 45-59 MINUTES [facility] Wade Corea MD [address] [place] [address] [place] [address] [place] [address] Reason Comments PT Eval Specialty Diagnoses / Procedures Referred By Contac t Referred To Contact [facility] Diagnoses S/P mastectomy, bilateral Procedures CONSULT TO BREAST REHAB PROGRAM THERAPEUTIC EXERCISES RE, EA 15 MIN. THERAPEUT ACTVITY DIRECT PT CONTACT EACH 15 MIN Mariana Sun APRN.[facility] [address] [place] [address] [facility] [place] [address] Referral ID Status Reason Start Date Expiration Date V isits Requested Visits Authorized [id number] Pending Review 07/02/2022 07/02/2023 1 1 Referral ID Status Reason Start Date Expiration Date Visits Re quested Visits Authorized [id number] Closed 05/06/2022 05/06/2023 4 4 Reason Comments PT Progress Note Reason Comments Information INFORMATION SOURCE (unrecogn ized section and content) DATE CREATED AUTHOR AUTHOR'S ORGANIZ ATION 03/31/2023 [facility] FOR RECORDS PERTAINING TO PATIENTS WHO ARE OR HAVE BEEN ENROLLED IN A CHEMICAL DEPENDENCY/SUBSTANCEABUSE PROGRAM, SOME INFORMATION MAY BE OMITTED. This clinical summary was aggregated from multiple sources. Caution should be exercised in using it in the provision of clinical care. This summary normalizes information from multiple sources, and as a consequence, information in this document may materially change the coding, format and clinical context of patient data. In addition, data may be omitted in some cases. CLINICAL DECISIONS SHOULD BE BASED ON THE PRIMARY CLINICAL RECORDS. [email or web address]. provides no warranty or guarantee of the accuracy or completeness of information in this document.
[2023-09-08 17:07] LABS: HPV APTIMA, High Risk Negative (Negative)
== END | disposition home or self-care (01) ==
LOC: LABSPEC 13:30
PROVIDERS: Referring Provider Obstetrics & Gynecology; Visit Provider Obstetrics & Gynecology
DX: Z12.4 Encounter for screening for malignant neoplasm of cervix (principal)
CPT/HCPCS: 87624; 88175; G0145

== ENCOUNTER → 2023-09-22 | Outpatient (CLI) | payer OTHER, SELFPAY ==
[2023-09-22 08:57] LABS: Absolute Lymphocyte Count 2.41 X10^3/uL (0.83-4.51); Absolute Neutrophil Count 3.7 X10^3/uL (2.0-7.7); Basophil# 0.06 X10^3/uL; Basophil% 0.9 % (0-1); Eosinophil# 0.19 X10^3/uL; Eosinophils% 2.7 % (0-5); Hematocrit 45.5 % (37-47); Hemoglobin 14.8 g/dL (12.0-15.0); Lymphocyte # 2.41 X10^3/ul (0.83-4.51); Lymphocyte % 34.9 % (19-41); Mean Corp Hgb Conc 32.5 g/dL (32-36); Mean Corpuscular Hgb 29.1 pg (27.0-32.0); Mean Corpuscular Volume 89.4 fL (81-99); Monocyte# 0.52 X10^3/uL; Monocyte% 7.5 % (0-10); NRBC Flagged by Analyzer 0 % (0-5); Neutrophil % 53.6 % (47-70); Platelet Count 259 K/mm3 (150-450); RBC Distribution Width CV 11.9 % (11.6-14.6); RBC Distribution Width SD 38.8 fl (35.1-43.9); Red Blood Count 5.09 M/mm3 (4.2-5.4); White Blood Count 6.9 K/mm3 (4.4-11.0)
--- OUTSIDE RECORDS SUMMARY | 2023-09-22 09:03 | XMS RPT_ITS | CCD ---
Author Name Unknown Address [address] [facility] [address] [place] [address] Organization [facility] Care Team Providers Care Manager Nursing Home Name Role Phone Autumn Lucas MD Unavailable [phone] Autumn Lucas Primary Care Provider Autunm Lucas Primary Care Provider MATI, ISIS A [...] Unavailable MARCANTHONY, AUTUMN Primary Care Unavailable LEMON, KEIHSA Attending Unavailable KAMALJIT, MARIANA Referring Unavailable MARCANTHONY, AUTUMN Primary Care Unavailable LEMON, KEISHA Attending Unavailable KAMALJIT, MARIANA Referring Unavailable MARCANTHONY, AUTUMN Primary Care Unavailable LEMON, KEISHA Attending Unavailable KAMALJIT, MARIANA Referring Unavailable MARCANTHONY, AUTUMN Primary Care Unavailable DANISHA MUÑOZ Attending Unavailable MATI, ISIS A Referring Unavailable MARCANTHONY, AUTUMN Primary Care Unavailable ADNRESSA, JUDY Attending Unavailable MATI, ISIS A Referring [...] 97.5 [degF] Dary Sarah PA-C Work Phone: [facility] 08-31-2022 14:22-0500 Diastolic blood pressure 56 mm[Hg] Dary Sarah PA-C Work Phone: [facility] 08-31-2022 14:22-0500 Heart rate 71 /min Dary Sarah PA-C Work Phone: [facility] 08-31-2022 14:22-0500 Systolic blood pressure 119 mm[Hg] Dary Sarah PA-C Work Phone: [facility] 05-07-2022 09:29-0400 Body height 165.1 cm Pacc 1 Work Phone: [facility] 05-07-2022 09:29-0400 Body temperature 96.91 [degF] Pacc 1 Work Phone: [facility] 05-07-2022 09:29-0400 Body weight 71.22 kg Pacc 1 Work Phone: [facility] 05-07-2022 09:29-0400 Diastolic blood pressure 76 mm[Hg] Pacc 1 Work Phone: [facility] 05-07-2022 09:29-0400 Heart rate 68 /min Pacc 1 Work Phone: [facility] 05-07-2022 09:29-0400 Respiratory rate 16 /min Pacc 1 Work Phone: [facility] 05-07-2022 09:29-0400 SaO2% (BldA) [Mass fraction] 96 % Pacc 1 Work Phone: [facility] 05-07-2022 09:29-0400 Systolic blood pressure 110 mm[Hg] Pacc 1 Work Phone: [facility] 02-25-2022 14:53-0400 Body height 167.6 cm Danisha Muñoz MD Work Phone: [facility] 02-25-2022 14:53-0400 Body weight 70.31 kg Danisha Muñoz MD Work Phone: [facility] 02-25-2022 13:44-0400 Body height 167.6 cm Isis Thorne DO Work Phone: [facility] 02-25-2022 13:44-0400 Body weight 68.04 kg Isis Thorne DO Work Phone: [facility] Encounters Encounter Date Encounter Type Care Provider Facility Start: 03-30-2023 ambulatory Fay bueno LPN Work Phone: [facility] Procedures Date Procedure Procedure Detail Performing Clinician Start: 08-11-2022 History of bilateral mastectomy S/P mastectomy, bilateral Keisha Lemon PT Start: 05-25-2022 Antibody screen LOGAN CAMILOENTE Plan of Treatment Date Care Activity Detail Author Start: 05-26-2025 DIABETES SCREEN DIABETES SCREEN [facility] Start: 05-07-2025 DIABETES SCREEN DIABETES SCREEN [facility] Start: 01-31-2024 PAP TESTING PAP TESTING [facility] Start: 04-08-2023 Influenza vaccination INFLUENZA (#1) [facility] Start: 11-18-2022 Adult depression screening assessment DEPRESSION SCREENING [facility] Start: 09-16-2022 Adult depression screening assessment DEPRESSION SCREENING [facility] Start: 08-08-2022 DEPRESSION ASSESSMENT DEPRESSION ASSESSMENT [facility] Start: 06-12-2022 Mammography MAMMOGRAM [facility] Start: 04-08-2022 Influenza vaccination [facility] Start: 03-09-2022 End: 03-09-2023 SARS-CoV-2 (COVID-19) RNA [Presence] in Respiratory specimen by CASSANDRA with probe detection PRE-PROCEDURE & PRE-OPERATIVE COVID Microbiology Routine BRCA2 positive Expected: 03/09/2022, Expires: 03/09/2023 [facility] Work Phone: Immunizations Immunization Date Immunization Notes Care Provider Amilcar wang 06-25-2010 influenza virus vaccine, live, attenuated, for intranasal use Fay Brambila LPN Work Phone: [facility] 05-06-2009 influenza virus vaccine, live, attenuated, for intranasal use Fay Brambila COMMUNICATION EQUIPMENT MECHANIC Work Phone: [facility] Work Phone: 05-29-2008 influenza virus vaccine, live, attenuated, for intranasal use Fay Brambila COMMUNICATION EQUIPMENT MECHANIC Work Phone: [facility] Work Phone: Payers Date Payer Category Payer Unknown [employer] P[employer] [id number] 2020-Present [phone] [address] [place] [address] PPO [id number] 2020 Unknown [employer] PPO [id number] 2020-Present [phone] [address] [place] [address] PPO [id number] 2020 Unknown [id number] Social History Date Type Detail Facility Start: 05-07-2022 Tobacco smoking stat [facility] Never smoked tobacco [facility] Work Phone: Start: 09-17-2021 End: 12-30-2022 Alcohol intake Current drinker of alcohol (finding) [facility] Start: 12-31-2014 History SDOH Alcohol Comment Seldom [facility] Start: 1970 Sex Assigned At Not on file [facility] Start: 02-15-2022 End: 07-12-2022 Exposure to SARS-CoV-2 (event) Not sure [facility] Start: 05-07-2022 Tobacco use and exposure Smokeless tobacco non-user [facility] Start: 08-20-2022 End: 12-30-2022 History of Social function [facility] Start: 08-20-2022 End: 12-30-2022 Tobacco use panel [facility] Adult Depression Screening Assessment 1 [facility] Medical Equipment Procedure Code Equipment Code Equipment Origin al Text Equipment Identifier Dates Matrix Alloderm Select Thk.4-2.4mm Thick Large Contour 21.5x10.7cm Tissue - [id number] Start: 05-25-2022 Implant Samson Mcintyre Cohesive Breast 375cc [place] Mastopexy - [id number] Start: 05-25-2022 Clinical Notes 11-18-2021 to [...] Chart. Thank you documented in this encounter [facility] 12-30-2022 Note HNO ID: [id number] Author: VIRIDIANA Marrero Service: ? Author Type: Physician Linoleum Tile Floor Layer Type: Progress Notes Filed: 12/30/2022 3:00 PM Note Text: This note was created using Liboxriter. Subjective Medina Farrar is a 52 year [...] detail warranting prompt ER evaluation. VIRIDIANA Marrero] [facility] 10-14-2022 Note HNO ID: [id number] Author: Danisha Muñoz MD Service: ? Author [...] scale of 0 to 10 Implant information: [facility] 375 REVIEW OF SYSTEMS PAIN ASSESSMENT: Negative [...] with more than 50% of the total [id number] time of the visit in counseling / [...] Past Histories independently gathered by the clinical sales support associate and the remaining scribed note accurately describes [...] personal performance and is accurate and complete. Danisha Muñoz MD [facility] 09-29-2022 Note HNO ID: [id number] Author: Keisha Turner PT Service: ? Author [...] Time Minutes (timed/untimed): 37 Keisha Turner, PT [facility] 09-29-2022 History of Presen t illness [...] Keisha Turner PT documented in this encounter [facility] 09-15-2022 Note HNO ID: [id number] Author: Keisha Turner PT Service: ? Author [...] 08/11/22 through 10/09/22 Goals updated on 09/15/2022. [place] in home exercise program. (Partially Met)-able, with [...] Patient to be seen for Therapeutic exercise (14473), Neuromuscular re-education (88613), Manual therapy (48462), Self-penitentiary management (09048), Patient/Family/Caregiver Education PLAN FOR NEXT VISIT: Assess [...] meaningfully difference Percenti (more content not included)... [facility] 09-15-2022 History of Presen t illness [...] 08/11/22 through 10/09/22 Goals updated on 09/15/2022. [place] in home exercise program. (Partially Met)-able, with [...] Patient to be seen for Therapeutic exercise (54041), Neuromuscular re-education (48586), Manual therapy (38214), Self-penitentiary management (49495), Patient/Family/Caregiver Education PLAN FOR NEXT VISIT: Assess [...] Keisha Turner PT documented in this encounter [facility] 09-10-2022 Note HNO ID: [id number] Author: Dary Smith PA-C Service: ? Author Type: Physician Linoleum Tile Floor Layer Type: Progress Notes Filed: 09/10/2022 7:31 AM Note Text: CC: post op HPI: Medina Farrar is a 52 year old female who presents s/p 05/25/22 bilateral breast reconstruction with direct to implant with alloderm ([facility] 375). Patient has a stitch in the [...] up as scheduled. Dary Smith PA-C 08/31/22 [facility] 09-10-2022 History of Presen t illness Narrative CC: post op HPI: Medina Fararr is a 52 year old female who presents s/p 05/25/22 bilateral breast reconstruction with direct to implant with alloderm ([facility] 375). Patient has a stitch in the [...] Smith PA-C 08/31/22 documented in this encounter [facility] 08-11-2022 Note HNO ID: [id number] Author: Keisha Turner, ROYA Service: ? Author [...] of Care: created on 08/11/22 through 10/09/22 [place] in home exercise program. Patient will decrease [...] Planned: 4 Planned Treatment Interventions: Therapeutic exercise (04302);Neuromuscular re-education (50945);Manual therapy (30367);Self-penitentiary management (48052);Patient/Family/Caregiver Education PLAN FOR NEXT VISIT: Assess shld [...] half of respondents (more content not included)... [facility] 08-11-2022 History of Presen t illness [...] of Care: created on 08/11/22 through 10/09/22 [place] in home exercise program. Patient will decrease [...] Planned: 4 Planned Treatment Interventions: Therapeutic exercise (16518);Neuromuscular re-education (32435);Manual therapy (95490);Self-penitentiary management (93940);Patient/Family/Caregiver Education PLAN FOR NEXT VISIT: Assess shld [...] Keisha Turner PT documented in this encounter [facility] 07-19-2022 Note Patient Outreach (JULIO OVALLEAV) MEDINA FARRAR ([id number]) 1970 F Date Time Provider Department 07/19/22 NO PCP NETNAV During your visit today, we recorded the following information about you: Keisha Coles Pss 07/19/2022 10:40 AM Signed POPULATION HEALTH NAVIGATION OUTREACH Action/ Patient Outreach: Spoke with patient to schedule in RST. Pt scheduled RST Consult [facility] Breast Rehab therapy. Pt identified by name [...] Allergies) Date Reviewed: 07/12/2022 Reviewed by: Padma Palacios LPN - Fully Assessed Prescriptions as of [...] medications reviewed November 20, 2007 Hali Cancino [facility] [place] Problem List As Of Date [...] Encounter Status:Closed by KEISHA LUIS on 07/19/22 [facility] 07-19-2022 Note HNO ID: [id number] Author: Keisha Bella Service: ? Author Type: [...] Coles Pss July 19, 2022 10:37 AM [facility] 07-19-2022 History of Presen t illness [...] 2022 10:37 AM documented in this encounter [facility] 07-12-2022 Note HNO ID: [id number] Author: Mariana Sun APRN.LIOR Service: ? Author Type: Nurse Practitioner Type: Progress Notes Filed: 07/12/2022 12:10 PM Note Text: CC: post op HPI: Medina Farrar is a 52 year old female who presents s/p 05/25/22 bilateral breast reconstruction with direct to implant with alloderm ([facility] 375). Started on antibiotics for left breast [...] at 4 weeks post op. Please call [phone] to schedule, change, cancel or confirm an appointment. RTC 1 month, sooner if needed Mariana Sun APRN.CNP [facility] 07-12-2022 Instructions Mariana Sun APRN.CNP - 07/12/2022 10:47 AM EST Tylenol for pain Finish course of antibiotics Call office with any new concerns for infection Ok to use silicone scar sheets/gel to incisions to lighten scars -Consult to breast rehab placed. OK to start at 4 weeks post op. Please call [phone] to schedule, change, cancel or confirm an appointment. documented in this encounter [facility] 07-12-2022 History of Presen t illness Narrative CC: post op HPI: Medina Farrar is a 52 year old female who presents s/p 05/25/22 bilateral breast reconstruction with direct to implant with alloderm ([facility] 375). Started on antibiotics for left breast [...] at 4 weeks post op. Please call [phone] to schedule, change, cancel or confirm an appointment. RTC 1 month, sooner if needed Mariana Sun APRN.LIOR documented in this encounter [facility] 07-07-2022 Note HNO ID: [id number] Author: Judy Crisostomo PA-C Service: ? Author Type: Physician Linoleum Tile Floor Layer Type: Progress Notes Filed: 07/07/2022 12:38 PM [...] Judy Crisostomo PA-C cc: Autumn Lucas MD [address] [place] [id number] [facility] 07-07-2022 Nurse Note Follow up Did patient bring outside records to appt today? : No Last mammogram on: 06/12/21 bilateral Results: see report Is the patient active on [employer] Yes Electronically Signed By: Fay Brambila LPN [...] Drug use: No documented in this encounter [facility] 07-07-2022 History of Presen t illness [...] Judy Crisostomo PA-C cc: Autumn Lucas MD [address] [address] documented in this encounter [facility] 07-02-2022 Note HNO ID: [id number] Author: Mariana Sun APRN.LIOR Service: ? Author Type: Nurse Practitioner Type: Progress Notes Filed: 07/02/2022 9:59 AM Note Text: CC: post op This visit was conducted as a virtual visit. HPI: Medina Farrar is a 52 year old female who presents s/p 05/25/22 bilateral breast reconstruction with direct to implant with alloderm ([facility] 375). Denies SANDS of infection Time post [...] 6 weeks after surgery. Do not perform team driver such as laundry and vacuuming. Do not perform yard work or gardening. -Consult to breast rehab placed. OK to start at 4 weeks post op. Please call [phone] to schedule, change, cancel or confirm an appointment. RTC 1 month, sooner if needed Virtual visit lasted for 20 minutes Mariana Sun APRN.[facility] 07-02-2022 History of Presen t illness Narrative CC: post op This visit was conducted as a virtual visit. HPI: Medina Farrar is a 52 year old female who presents s/p 05/25/22 bilateral breast reconstruction with direct to implant with alloderm ([facility] 375). Denies S&S of infection Time post [...] 6 weeks after surgery. Do not perform team driver such as laundry and vacuuming. Do not perform yard work or gardening. -Consult to breast rehab placed. OK to start at 4 weeks post op. Please call [phone] to schedule, change, cancel or confirm an appointment. RTC 1 month, sooner if needed Virtual visit lasted for 20 minutes Mariana Sun APRN.LIOR documented in this encounter [facility] 06-28-2022 Note HNO ID: [id number] Author: Mariana Sun APRN.LIOR Service: ? Author Type: Nurse Practitioner Type: Progress Notes Filed: 06/28/2022 1:47 PM Note Text: CC: post op This visit was conducted as a virtual visit. HPI: Medina Farrar is a 52 year old female who presents s/p 05/25/22 bilateral breast reconstruction with direct to implant with alloderm ([facility] 375). Denies SANDS of infection Time post [...] healing well Patient will send photos via Cuet if needed -Shower regularly to keep the [...] 6 weeks after surgery. Do not perform team driver such as laundry and vacuuming. Do not [...] at 4 weeks post op. Please call [phone] to schedule, change, cancel or confirm an appointment. RTC 1 month, sooner if needed Mariana Sun APRN.[facility] 06-28-2022 History of Presen t illness Narrative CC: post op This visit was conducted as a virtual visit. HPI: Medina Farrar is a 52 year old female who presents s/p 05/25/22 bilateral breast reconstruction with direct to implant with alloderm ([facility]). Denies S&S of infection Time post [...] 6 weeks after surgery. Do not perform team driver such as laundry and vacuuming. Do not [...] at 4 weeks post op. Please call [phone] to schedule, change, cancel or confirm an appointment. RTC 1 month, sooner if needed Mariana Sun APRN.LIOR documented in this encounter [facility] 06-10-2022 Note HNO ID: [id number] Author: Mariana Sun APRN.CNP Service: ? Author Type: Nurse Practitioner Type: Progress Notes Filed: 06/14/2022 3:47 PM Note Text: CC: post op HPI: Medina Farrar is a 52 year old female who presents s/p 05/25/22 bilateral breast reconstruction with direct to implant with alloderm ([facility] 375). Denies SANDS of infection Drain ready [...] 6 weeks after surgery. Do not perform team driver such as laundry and vacuuming. Do not [...] at 4 weeks post op. Please call [phone] to schedule, change, cancel or confirm an appointment. RTC 2 week virtual, sooner if needed Mariana Sun APRN.LIOR [facility] 06-10-2022 Instructions Mariana Sun APRN.LIOR - [...] 6 weeks after surgery. Do not perform team driver such as laundry and vacuuming. Do not [...] at 4 weeks post op. Please call [phone] to schedule, change, cancel or confirm an appointment. RTC 2 week virtual, sooner if needed documented in this encounter [facility] 06-10-2022 History of Presen t illness Narrative CC: post op HPI: Medina Farrar is a 52 year old female who presents s/p 05/25/22 bilateral breast reconstruction with direct to implant with alloderm ([facility]). Denies S&S of infection Drain ready [...] and negative other than HPI. PHYSICAL EXAM: [facility] 05/28/2021 (Exact Date) GEN: Well appearing, alert, [...] 6 weeks after surgery. Do not perform team driver such as laundry and vacuuming. Do not [...] at 4 weeks post op. Please call [phone] to schedule, change, cancel or confirm an appointment. RTC 2 week virtual, sooner if needed Mariana Sun APRN.LIOR documented in this encounter [facility] 06-03-2022 Note HNO ID: [id number] Author: Mariana Sun APRN.CNP Service: ? Author Type: Nurse Practitioner Type: Progress Notes Filed: 06/03/2022 4:38 PM Note Text: CC: post op HPI: Medina Farrar is a 52 year old female who presents s/p 05/25/22 bilateral breast reconstruction with direct to implant with alloderm ([facility]). Time post op: 9 days Taking [...] 6 weeks after surgery. Do not perform team driver such as laundry and vacuuming. Do not [...] at 4 weeks post op. Please call [phone] to schedule, change, cancel or confirm an appointment. RTC for drain removal Mariana Sun APRN.CNP [facility] 06-03-2022 Instructions Mariana Sun APRN.LIOR - [...] 6 weeks after surgery. Do not perform team driver such as laundry and vacuuming. Do not [...] at 4 weeks post op. Please call [phone] to schedule, change, cancel or confirm an appointment. documented in this encounter [facility] 06-03-2022 History of Presen t illness Narrative CC: post op HPI: Medina Farrar is a 52 year old female who presents s/p 05/25/22 bilateral breast reconstruction with direct to implant with alloderm ([facility]). Time post op: 9 days Taking [...] 6 weeks after surgery. Do not perform team driver such as laundry and vacuuming. Do not [...] at 4 weeks post op. Please call [phone] to schedule, change, cancel or confirm an appointment. RTC for drain removal Mariana Sun APRN.CNP documented in this encounter [facility] 06-02-2022 Note HNO ID: [id number] Author: Judy Crisostomo PA-C Service: ? Author Type: Physician Linoleum Tile Floor Layer Type: Progress Notes Filed: 06/02/2022 12:36 PM [...] Judy Crisostomo PA-C cc: Autumn Lucas MD [address] [address] [facility] 06-02-2022 History of Presen t illness [...] Judy Crisostomo PA-C cc: Autumn Lucas MD [address] [address] documented in this encounter [facility] 06-01-2022 Miscellaneous Notes Breast nurse navigation [...] Yessy Olmstead RN documented in this encounter [facility] 05-28-2022 Miscellaneous Notes Breast nurse navigator [...] Yessy Olmstead RN documented in this encounter [facility] 05-27-2022 Miscellaneous Notes BREAST HEALTH NURSE [...] told her I would notify Dr. Muñoz's SOLUTIONS OPERATOR and RN to address this. Taking Robaxin [...] and plastics PA documented in this encounter [facility] 05-26-2022 Note HNO ID: [id number] Author: Izabel Smith (Stock Puller) Service: Pharmacy Author Type: ? Type: Plan [...] to review them with you. Izabel Smith (Stock Puller) PAGER: [phone] May 26, 2022 2:05 PM [facility] 05-26-2022 Note Education (ONESIMO) MEDINA FARRAR ([id number]) 1970 F Date Time Provider Department 05/26/22 YESSY OLMSTEAD Reason for Visit: Education Of Patient/family [334] Cmt: Post-op visit During your visit today, [...] benzocaine-menthol 1 Lozenge (CEPACOL) - phenol 1 [place] (CHLORASEPTIC) - melatonin 3 mg tab(s) - [...] Encounter Status:Closed by YESSY OLMSTEAD on 05/26/22 [facility] 05-26-2022 Note HNO ID: [id number] Author: Ashley Pagan APRN.FOREPART LASTER Service: Plastic Surgery Author Type: Nurse Practitioner Type: Progress Notes Filed: 05/26/2022 11:39 AM Note Text: PLASTIC SURGERY PROGRESS NOTE OR DATE: 05/25/2022 1 Day Post-Op Procedure(s) (LRB): MASTECTOMY SIMPLE BILATERAL (Bilateral) TISSUE DAIRY SPECIALIST PLACEMENT IN BREAST RECONSTRUCTION BILATERAL (Bilateral) INSERTION [...] q 2 H PRN Or phenol 1 [place] (CHLORASEPTIC) 1 [place] MUCOUS MEMBRANE (TOPICAL MOUTH AND THROAT) q [...] 8.2* MG 2.3 P 3.3 Ashley Pagan, SHIP UNLOADER.FOREPART LASTER Plastic Surgery P:[phone] 8am-4pm After hours [employer] Pager, [facility] 05-26-2022 Note HNO ID: [id number] Author: Yessy Olmstead RN Service: ? Author [...] after hours urgent concerns/needs. Yessy Olmstead RN [facility] 05-26-2022 History of Presen t illness Narrative [...] Yessy Olmstead RN documented in this encounter [facility] 05-26-2022 Note HNO ID: [id number] Author: Laura Daniels MD Service: General Surgery Author Type: Resident Type: Progress Notes Filed: 05/26/2022 12:56 PM Note Text: GENERAL SURGERY SERVICES PROGRESS NOTE SERVICE DATE: 05/26/2022 Medina Farrar [id number] Hospital Day: 2 OR DATE: 05/25/2022 1 Day Post-Op Procedure(s) (LRB): MASTECTOMY SIMPLE BILATERAL (Bilateral) TISSUE DAIRY SPECIALIST PLACEMENT IN BREAST RECONSTRUCTION BILATERAL (Bilateral) INSERTION [...] q 2 H PRN Or phenol 1 [place] (CHLORASEPTIC) 1 [place] MUCOUS MEMBRANE (TOPICAL MOUTH AND THROAT) q [...] Resident For team paging 6AM-6PM during weekdays: [phone] for [facility] Team For team paging after 6PM or on weekend / holidays: [phone] for General Surgery [facility] 05-25-2022 Note Education (ONESIMO) LENIMEDINA E ([id number]) 1970 F Date Time Provider Department 05/25/22 [...] medications reviewed November 20, 2007 Hali Cancino [facility] Encounter Status:Closed by TERRA STEPHENSON on 05/25/22 [facility] 05-25-2022 Nurse Note BREAST HEALTH NURSE POST-OPERATIVE [...] Terra Stephenson RN documented in this encounter [facility] 05-25-2022 Note HNO ID: [id number] Author: Karen Vivar APRN.APPRAISER ART Service: ? Author Type: Nurse Enterprise Infrastructure Architect Type: Anesthesia Procedure Notes Filed: 05/25/2022 8:40 [...] May 25, 2022 TIME: 8:40 AM CSN: [id number] [facility] 05-25-2022 Note HNO ID: [id number] Author: Karen Vivar APRN.APPRAISER ART Service: ? Author Type: Nurse Enterprise Infrastructure Architect Type: Anesthesia Procedure Notes Filed: 05/25/2022 8:38 AM Note Text: ANESTHESIOLOGY PROCEDURE NOTE Airway General Information Procedure Start Time/Medication Administration: 05/25/2022 8:07 AM Patient location during procedure: OR Patient identity confirmed: arm band, care steam hoist operator and patient Staffing APPRAISER ART: Karen Vivar APRN.APPRAISER ART Performed by: GELY Indications and Patient Condition [...] May 25, 2022 TIME: 8:38 AM CSN: [id number] [facility] 05-17-2022 Note Education ([facility]) LENIMEDINA ([id number]) 1970 F Date Time Provider Department 10/10/22 [...] reviewed November 20, 2007 Hali Anahi Cancino [facility] Encounter Status:Closed by FAY BRAMBILA on 05/17/22 [facility] 05-17-2022 Nurse Note AMBULATORY PATIENT EDUCATION [...] education: 15 minutes. documented in this encounter [facility] 05-07-2022 Instructions Ángela Vivar APRN.FOREPART LASTER - 05/07/2022 9:29 AM EDT PATIENT PREOPERATIVE INSTRUCTIONS Judy Crisostomo PA-C has scheduled you for your procedure at this surgery center: [facility]: [phone] --[id number] [address]. Please check in on the 1st floor [...] Procedures: - YOU MUST HAVE A RESPONSIBLE SLEEPING CAR PORTER TAKE YOU HOME. A BLADE BENDER FURNACE TENDER OR STAGE RIGGER CANNOT BE MADE A RESPONSIBLE SLEEPING CAR PORTER. - We recommend that a responsible person [...] Advance Directive, please fax a copy to [phone] or email to for it to be [...] Ángela Vivar APRN.LIOR documented in this encounter [facility] 05-07-2022 History and physical note HISTORY AND PHYSICAL EXAMINATION SERVICE DATE: 05/07/2022 SERVICE TIME: 9:26 AM PRIMARY CARE PHYSICIAN: Autumn Lucas MD REASON FOR VISIT: Medina Farrar is a 52 year old female who is scheduled for Procedure(s) with comments: MASTECTOMY SIMPLE BILATERAL (Bilateral) - nipple sparing with reconstruction t/f TISSUE DAIRY SPECIALIST PLACEMENT IN BREAST RECONSTRUCTION BILATERAL (Bilateral) INSERTION [...] a BRCA 2 mutation, presents to the [facility], at the request of Dr. aWde Scott for a surgical consult for Risk [...] Upon discussing this family history with her TAX MANAGER CPA, genetic testing was ordered Genetic results: 04/16/2021 [facility] Hereditary Cancer panel by [facility] due to FH and was found to carry Heterozygous likely pathogenic variant,c.9302T>G(p.Y3368D) in the BRCA2 gene was detected. Her counseling has been completed by her video library assistant Dr Autumn Lucas ([facility]). She underwent a RRSO with negative pathology in 06/[address] Wade Kahn medical breast, and Dr. Glenny Viramontes, breast psychology REVIEW OF SYSTEMS: General: No weight loss, malaise or fevers. Neurological: No history of TIA's, stroke, PICTURE BOOKER tumor, impaired sensorium, hemiplegia, paraplegia or quadraplegia. No neurological symptoms or problems. Respiratory: No history of current cough or dyspnea, or pneumonia in the past 6 weeks. No history of respiratory/pulmonary symptoms or problems. Cardiovascular: Negative for: angina, anticoagulation therapy, arrhythmia, atrial fibrillation, CAD, chest pain, CHF, congenital heart defect, DVT/PE, hyperlipidemia, hypertension, recent RI, murmur/valvular heart disease, open heart surgery and [...] > 1 time per night or hematuria. TAX MANAGER CPA: Negative for abnormal vaginal bleeding, abnormal vaginal [...] medications reviewed today/November 20, 2007 Hali Cancino Validation Architect Ca ALLERGIES No Known Allergies Objective PHYSICAL [...] or any previous visit (from the past 05881 hour(s)). Assessment No problem-specific Assessment & Plan notes found for this encounter. Celis Activity Status Index: METS: Climb a flight [...] large neck Non-male patient STOP-Bang Score: 2 [id number] Score: Age: <65 Sex: female CHF history: No Hypertension history: No Stroke/TIA/thromboembolism history: No Vascular disease history: No Diabetes history: No [id number] Score: 1 ARISCAT Score: Age: 51-80 Preoperative [...] and consent discussed: yes. Patient / Responsible Republican agrees to proceed: yes Patient / Surrogate [...] AM PAGER/CONTACT #: documented in this encounter [facility] 02-25-2022 History of Presen t illness Narrative DATE OF PHOTOS: 02/25/2022 Body Part: Breasts Padma Philip BELL February 25, 2022 2:51 PM documented in this encounter [facility] 02-25-2022 History of Presen t illness Narrative BREAST RECONSTRUCTION EVALUATION Patient is self-referred. Name: Medina Farrar : 1970 E-mail: [email or web address] MEDICAL MERATE Date: February 24, 2022 BMI: There is [...] BRCA. Biological aunt had breast cancer and CHARGE ACCOUNT IDENTIFICATION CLERK suggested testing. Hx Radiation Therapy: No Hx [...] Past Histories independently gathered by the clinical sales support associate and the remaining scribed note accurately describes [...] Danisha Muñoz MD documented in this encounter [facility] 02-25-2022 History of Presen t illness Narrative REASON FOR TODAY'S VISIT: Patient presents with: New Patient: Surgical consult Medina Farrar is a 51 year old year old white female, former patient, with a BRCA 2 mutation, presents to the [facility], at the request of [...] Upon discussing this family history with her TAX MANAGER CPA, genetic testing was ordered Genetic results: 04/16/2021 [facility] Hereditary Cancer panel by [facility] due to FH and was found to carry Heterozygous likely pathogenic variant,c.9302T>G(p.Q7146S) in the BRCA2 gene was detected. Her counseling has been completed by her video library assistant Dr Autumn Lucas ([facility]). She underwent a RRSO with negative pathology [...] NEC,HAND,SCAL<0.5CM 09/29/13 Exc. scalp wens x 5 TAX MANAGER CPA HISTORY G 4 P 4 Menarche: [age] [...] GENERAL: Denies weight loss, malaise or fevers. PICTURE BOOKER: Negative for new frequent or significant headaches. RESP: Negative for cough, wheezing or shortness of breath. CARD: Negative for chest pain, palpitations or leg swelling. GI:Hx of gastric ulcers. Negative for abdominal pain, no change in bowel habits, no blood in stool. : Negative for dysuria, frequency or incontinence. HEME: Patient denies known coagulopathy. TAX MANAGER CPA: Negative for abnormal vaginal bleeding or abnormal [...] made to exams dated: 02/15/2017 mammogram - [facility] and 01/08/2015 mammogram - [facility]. The tissue of both breasts is heterogeneously [...] made to exams dated: 02/15/2017 mammogram - [facility] and 01/08/2015 mammogram - [facility]. Ultrasound of the right axilla was performed [...] exams dated: 06/12/2021 ultrasound, 06/12/2021 mammogram - [facility], 06/15/2016 [facility], 02/15/2017 ultrasound, 02/15/2017 mammogram - [facility], and 07/08/2016 mammogram - [facility]. Informed consent was obtained [...] a staff physician. PATHOLOGY Pathology reports from [facility] were reviewed and discussed with the Patient. 09/19/2015 FINAL DIAGNOSIS Right breast, calcifications, ribbon clip, 12 o'clock, 1 cm from nipple, ultrasound-guided needle core biopsy (A) - Breast tissue with sclerosing adenosis, columnar cell change, focal stromal fibrosis, and 10/07/2015 FINAL DIAGNOSIS [facility], [place], [place] ([id number], 09/01/2015) Right breast, stereotactic core [...] placed. We discussed options for reconstruction (implant/tissue vacuum cooker operator vs. autologous OLIVIA free flap procedure). We [...] Surgeon cc: Wade Scott [address] [address] Fax: Autumn Lucas MD [address] [place] [id number] Wander Muñoz documented in this encounter [facility] 02-25-2022 Nurse Note Patient was referred by: Did patient bring outside records to appt today? 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 She is [...] was found to carry Heterozygous likely pathogenic variant,c.9302T>G(p.K9570U) in the BRCA2 gene was detected. Her counseling has been completed by her video library assistant Dr Autumn Lucas ([facility]). She has intact breast tissue and had [...] able to find the pathology report from [facility] dated 10/08/13 from a left stereotactic [...] No CANCER SURVEILLANCE: Mammograms: Yes, Date in [facility]:06/12/21; results - Negative (had ultrasound done for benign LN in right axilla. Breast MRI: Yes, Date in [facility]: 07/27/21 negative Colonoscopy: No RISK [...] Testing? Yes [facility] Hereditary panel testing by [employer]! results +BRCA2 Other Cancer: MGM possible uterine [...] genetic with her daughters as instructed by TAX MANAGER CPA. Chemoprevention discussion: Chemoprevention was discussed at length [...] GENRE study and she was contacted by appointment coordinator She is leaning toward RRM. The [...] which included preparing to see the patient, [id number] patient care, completing clinical documentation, obtaining and/or reviewing separately obtained history, performing a medically appropriate examination, counseling and educating the patient/family/caregiver, ordering medications, tests, or procedures, communicating with other HCPs (not separately reported), independently interpreting results (not separately reported), communicating results to the patient/family/caregiver and care coordination (not separately reported). Sujey Garcia APRN.LIOR Medical Breast Specialist Women's Health Nurse Practitioner CC:Autumn Lucas MD [address] [place] [address] documented in this encounter [facility] 12-15-2021 Nurse Note Last mammogram on: [...] Drug use: No documented in this encounter [facility] 12-15-2021 Instructions Jessica Dunham Ma - [...] breast cancer, and a history of Ashkenazi Alevism ancestry. Breast pain is very common and usually is not a sign of cancer, but should be evaluated by a breast specialist. For comfort, simply reducing caffeine (coffee, tea, chocolate, energy drinks, sodas) in your diet can provide relief. A properly fitted bra can also be helpful in reducing breast pain. If those two measures do not provide relief, taking Evening Bristol Oil 1000mg capsules twice a day for [...] encountered today, you may do so at [email or web address]. Thank you ! documented in this encounter [facility] 11-18-2021 Miscellaneous Notes Pt calling office regarding surgical consult with and . Answered questions regarding restrictions after surgery and virtual vs in person appointment. She is going to look at her schedule and see what is the best timing to come in and call me back to schedule. Fay Brambila LPN documented in this encounter [facility] 11-18-2021 History of Presen t illness Narrative [facility] [place] [facility] Progress Note November 19, 2021 Billing codes: T08 WANDER CPT Code: 53367 Psychotherapy 38-52 minutes Start/Stop Time: 11:13-12 PM [...] to participate. Originating site for client is [place]. Originating site for provider is [place]. Subjective: Pt reports increased motivation for surgery [...] before surgery Needs to schedule with surgeons [phone]. Next visit: scanxiety/MRI Number of weeks till next appointment: 4 Lakeisha Viramontes, Ph.D., ABPP Psychologist [facility] BEHAVIORAL HEALTH EVALUATION documented in this encounter [facility] Diagnosis Fibrocystic breast changes of both breasts- Primary BRCA2 gene mutation positive Dense breast Inconclusive mammogram Atypical lobular hyperplasia (ALH) of right breast Encounter for screening mammogram for high-risk patient [facility] Diagnosis Atypical lobular hyperplasia (ALH) of right breast- Primary BRCA2 positive Genetic susceptibility to malignant neoplasm of breast [facility] Diagnosis BRCA2 positive- Primary Genetic susceptibility to malignant neoplasm of breast Prophylactic breast removal [facility] Diagnosis BRCA2 gene mutation positive- Primary [facility] Diagnosis BRCA2 positive- Primary Genetic susceptibility to malignant neoplasm of breast BRCA2 positive Genetic susceptibility to malignant neoplasm of breast [facility] Diagnosis Pre-operative examination- Primary Preoperative examination, unspecified Anxiety Anxiety state, unspecified Gastroesophageal reflux disease, unspecified whether esophagitis present BRCA2 positive Genetic susceptibility to malignant neoplasm of breast Prophylactic breast removal BRCA2 positive Genetic susceptibility to malignant neoplasm of breast [facility] Diagnosis BRCA2 positive- Primary Genetic susceptibility to malignant neoplasm of breast BRCA2 positive Genetic susceptibility to malignant neoplasm of breast [facility] Diagnosis Prophylactic breast removal- Primary BRCA2 positive Genetic susceptibility to malignant neoplasm of breast documented in this encounter [facility] note* Diagnosis Post-operative state- Primary Other postprocedural status Acute post-operative pain documented in this encounter [facility] note* Diagnosis Post-operative state- Primary Other postprocedural status documented in this encounter [facility] note* Diagnosis Post-operative state- Primary Other postprocedural status documented in this encounter [facility] note* Diagnosis S/P mastectomy, bilateral- Primary Acquired absence of breast and nipple Post-operative state Other postprocedural status documented in this encounter [facility] note* Diagnosis BRCA2 positive- Primary Genetic susceptibility to malignant neoplasm of breast documented in this encounter [facility] note* Diagnosis BRCA2 positive- Primary Genetic susceptibility to malignant neoplasm of breast Prophylactic breast removal documented in this encounter [facility] note* Diagnosis Post-operative state- Primary Other postprocedural status documented in this encounter [facility] note* Diagnosis S/P mastectomy, bilateral- Primary Acquired absence of breast and nipple documented in this encounter [facility] note* Diagnosis Suture reaction, initial encounter- Primary S/P mastectomy, bilateral Acquired absence of breast and nipple BRCA2 gene mutation positive documented in this encounter [facility] note* Diagnosis S/P mastectomy, bilateral- Primary Acquired absence of breast and nipple documented in this encounter [facility] note* Diagnosis S/P mastectomy, bilateral- Primary Acquired absence of breast and nipple documented in this encounter [facility] for referral (narrative)* Outpatient Procedure (Routine) - Closed Specialty Diagnoses / Procedures Referred By Donovan t Referred To [facility] Diagnoses Pre-operative examination Procedures ECG COMPLETE ECG ROUTINE ECG W/LEAST 12 LDS W/I&R Ángela Vivar APRN.CNP [address] [place] [address] [facility] [place] [address] Referral ID Status Reason Start Date Expiration Date V isits Requested Visits Authorized [id number] Closed Auto-Generate d Referral 05/07/2022 05/07/2023 1 1 [facility] Advance Directives No Advanced Directives Records FoundDocuments on File Type Date Recorded Patient After School Tutor Expl anation Advance Directive(s) 11/03/2015 8:02 AM Documents on File Type Date Recorded Patient After School Tutor Expl anation Advance Directive(s) 11/03/2015 8:02 AM Reason for Referral Specialty Diagnoses / Procedures Referred By Contac t Referred To Contact Diagnoses BRCA2 positive Prophylactic breast removal Procedures IN PERSON CONSULT TO PACC Judy Crisostomo PA-C [id number] [phone] Referral ID Status Reason Start Date Expiration Date Visits Requested Visits Authorized [id number] Ref Not Required PCP Requested Referral 03/01/2022 05/30/2022 1 1 Specialty Diagnoses / Procedures Referred By Contac t Referred To Contact [facility] Diagnoses S/P mastectomy, bilateral Procedures CONSULT TO BREAST REHAB PROGRAM THERAPEUTIC EXERCISES RE, EA 15 MIN. THERAPEUT ACTVITY DIRECT PT CONTACT EACH 15 MIN Mariana Sun APRN.CNP [address] [id number] [facility] [address] [address] Referral ID Status Reason Start Date Expiration Date Visits Requested Visits Authorized [id number] Pending Review PCP Requested Referral Auto-Generate d Referral 2 07/02/2023 1 1 Specialty Diagnoses / Procedures Referred By Contac t Referred To Contact Gastroenterology Diagnoses BRCA2 positive Procedures CONSULT TO GASTROENTEROLOGY OFFICE/OUTPATIENT [facility] MDM 60-74 MINUTES Judy Crisostomo PA-C [id number] [phone] Referral ID Status Reason Start Date Expiration Date Visits Requested Visits Authorized [id number] Pending Review PCP Requested Referral 2 07/07/2023 1 1 Specialty Diagnoses / Procedures Referred By Contac t Referred To Contact [facility] Diagnoses S/P mastectomy, bilateral Procedures PT REHAB FOLLOW UP ORDER THERAPEUTIC EXERCISES RE, EA 15 MIN. Keisha Turner, PT [facility] [address] [place], [place] [id number] Referral ID Status Reason Start Date Expiration Date Visits Requested Visits Authorized [id number] Pending Review PCP Requested Referral Auto-Generate d [...] or prosecute any alcohol or drug abuse patient.[facility] the event this information is protected by the Federal Confidentiality of Alcohol and Drug Abuse Patient Records regulations: The Federal rules restrict any use of the information to criminally investigate or prosecute any alcohol or drug abuse patient.[facility] the event this information is protected by the Federal Confidentiality of Alcohol and Drug Abuse Patient Records regulations: The Federal rules restrict any use of the information to criminally investigate or prosecute any alcohol or drug abuse patient.[facility] the event this information is protected by the Federal Confidentiality of Alcohol and Drug Abuse Patient Records regulations: The Federal rules restrict any use of the information to criminally investigate or prosecute any alcohol or drug abuse patient.[facility] the event this information is protected by the Federal Confidentiality of Alcohol and Drug Abuse Patient Records regulations: The Federal rules restrict any use of the information to criminally investigate or prosecute any alcohol or drug abuse patient.[facility] HospitalIn the event this information is protected by the Federal Confidentiality of Alcohol and Drug Abuse Patient Records regulations: The Federal rules restrict any use of the information to criminally investigate or prosecute any alcohol or drug abuse patient.[facility] HospitalIn the event this information is protected by the Federal Confidentiality of Alcohol and Drug Abuse Patient Records regulations: The Federal rules restrict any use of the information to criminally investigate or prosecute any alcohol or drug abuse patient.[facility] HospitalIn the event this information is protected by the Federal Confidentiality of Alcohol and Drug Abuse Patient Records regulations: The Federal rules restrict any use of the information to criminally investigate or prosecute any alcohol or drug abuse patient.[facility] HospitalIn the event this information is protected by the Federal Confidentiality of Alcohol and Drug Abuse Patient Records regulations: The Federal rules restrict any use of the information to criminally investigate or prosecute any alcohol or drug abuse patient.[facility] HospitalIn the event this information is protected by the Federal Confidentiality of Alcohol and Drug Abuse Patient Records regulations: The Federal rules restrict any use of the information to criminally investigate or prosecute any alcohol or drug abuse patient.[facility] HospitalIn the event this information is protected by the Federal Confidentiality of Alcohol and Drug Abuse Patient Records regulations: The Federal rules restrict any use of the information to criminally investigate or prosecute any alcohol or drug abuse patient.[facility] HospitalIn the event this information is protected by the Federal Confidentiality of Alcohol and Drug Abuse Patient Records regulations: The Federal rules restrict any use of the information to criminally investigate or prosecute any alcohol or drug abuse patient.[facility] HospitalIn the event this information is protected by the Federal Confidentiality of Alcohol and Drug Abuse Patient Records regulations: The Federal rules restrict any use of the information to criminally investigate or prosecute any alcohol or drug abuse patient.[facility] HospitalIn the event this information is protected by the Federal Confidentiality of Alcohol and Drug Abuse Patient Records regulations: The Federal rules restrict any use of the information to criminally investigate or prosecute any alcohol or drug abuse patient.[facility] HospitalIn the event this information is protected by the Federal Confidentiality of Alcohol and Drug Abuse Patient Records regulations: The Federal rules restrict any use of the information to criminally investigate or prosecute any alcohol or drug abuse patient.[facility] HospitalIn the event this information is protected by the Federal Confidentiality of Alcohol and Drug Abuse Patient Records regulations: The Federal rules restrict any use of the information to criminally investigate or prosecute any alcohol or drug abuse patient.[facility] HospitalIn the event this information is protected by the Federal Confidentiality of Alcohol and Drug Abuse Patient Records regulations: The Federal rules restrict any use of the information to criminally investigate or prosecute any alcohol or drug abuse patient.[facility] HospitalIn the event this information is protected by the Federal Confidentiality of Alcohol and Drug Abuse Patient Records regulations: The Federal rules restrict any use of the information to criminally investigate or prosecute any alcohol or drug abuse patient.[facility] HospitalIn the event this information is protected by the Federal Confidentiality of Alcohol and Drug Abuse Patient Records regulations: The Federal rules restrict any use of the information to criminally investigate or prosecute any alcohol or drug abuse patient.[facility] HospitalIn the event this information is protected by the Federal Confidentiality of Alcohol and Drug Abuse Patient Records regulations: The Federal rules restrict any use of the information to criminally investigate or prosecute any alcohol or drug abuse patient.[facility] HospitalIn the event this information is protected by the Federal Confidentiality of Alcohol and Drug Abuse Patient Records regulations: The Federal rules restrict any use of the information to criminally investigate or prosecute any alcohol or drug abuse patient.[facility] HospitalIn the event this information is protected by the Federal Confidentiality of Alcohol and Drug Abuse Patient Records regulations: The Federal rules restrict any use of the information to criminally investigate or prosecute any alcohol or drug abuse patient.[facility] HospitalIn the event this information is protected by the Federal Confidentiality of Alcohol and Drug Abuse Patient Records regulations: The Federal rules restrict any use of the information to criminally investigate or prosecute any alcohol or drug abuse patient.[facility] HospitalIn the event this information is protected by the Federal Confidentiality of Alcohol and Drug Abuse Patient Records regulations: The Federal rules restrict any use of the information to criminally investigate or prosecute any alcohol or drug abuse patient.[facility] HospitalIn the event this information is protected by the Federal Confidentiality of Alcohol and Drug Abuse Patient Records regulations: The Federal rules restrict any use of the information to criminally investigate or prosecute any alcohol or drug abuse patient.[facility] the event this information is protected by the Federal Confidentiality of Alcohol and Drug Abuse Patient Records regulations: The Federal rules restrict any use of the information to criminally investigate or prosecute any alcohol or drug abuse patient.[facility] HospitalIn the event this information is protected by the Federal Confidentiality of Alcohol and Drug Abuse Patient Records regulations: The Federal rules restrict any use of the information to criminally investigate or prosecute any alcohol or drug abuse patient.[facility] the event this information is protected by the Federal Confidentiality of Alcohol and Drug Abuse Patient Records regulations: The Federal rules restrict any use of the information to criminally investigate or prosecute any alcohol or drug abuse patient.[facility] Hospital[facility] the event this information is protected by the Federal Confidentiality of Alcohol and Drug Abuse Patient Records regulations: The Federal rules restrict any use of the information to criminally investigate or prosecute any alcohol or drug abuse patient.[facility] HospitalIn the event this information is protected by the Federal Confidentiality of Alcohol and Drug Abuse Patient Records regulations: The Federal rules restrict any use of the information to criminally investigate or prosecute any alcohol or drug abuse patient.[facility] HospitalIn the event this information is protected by the Federal Confidentiality of Alcohol and Drug Abuse Patient Records regulations: The Federal rules restrict any use of the information to criminally investigate or prosecute any alcohol or drug abuse patient.[facility] HospitalIn the event this information is protected by the Federal Confidentiality of Alcohol and Drug Abuse Patient Records regulations: The Federal rules restrict any use of the information to criminally investigate or prosecute any alcohol or drug abuse patient.[facility] Care Teams (unrecognized sec tion and content) Manager Nursing Home Relationship Specialty Start Date End Date ShayyAutumn PCP - General CHARGE ACCOUNT IDENTIFICATION CLERK 05/28/16 Manager Nursing Home Relationship Specialty Start Date End Date WilliamAutumn christina PCP - General CHARGE ACCOUNT IDENTIFICATION CLERK 05/28/16 Manager Nursing Home Relationship Specialty Start Date End Date Shayy Autumn PCP - General CHARGE ACCOUNT IDENTIFICATION CLERK 05/28/16 Manager Nursing Home Relationship Specialty Start Date End Date Shayy Autumn PCP - General CHARGE ACCOUNT IDENTIFICATION CLERK 05/28/16 Manager Nursing Home Relationship Specialty Start Date End Date Autumn Lucas PCP - General CHARGE ACCOUNT IDENTIFICATION CLERK 05/28/16 Manager Nursing Home Relationship Specialty Start Date End Date Autumn Lucas PCP - General CHARGE ACCOUNT IDENTIFICATION CLERK 05/28/16 Manager Nursing Home Relationship Specialty Start Date End Date Autumn Lucas PCP - General CHARGE ACCOUNT IDENTIFICATION CLERK 05/28/16 Manager Nursing Home Relationship Specialty Start Date End Date Autumn Lucas PCP - General CHARGE ACCOUNT IDENTIFICATION CLERK 05/28/16 Manager Nursing Home Relationship Specialty Start Date End Date Autumn Lucas PCP - General CHARGE ACCOUNT IDENTIFICATION CLERK 05/28/16 Manager Nursing Home Relationship Specialty Start Date End Date Autumn Lucas PCP - General CHARGE ACCOUNT IDENTIFICATION CLERK 05/28/16 Manager Nursing Home Relationship Specialty Start Date End Date Autumn Lucas PCP - General CHARGE ACCOUNT IDENTIFICATION CLERK 05/28/16 Manager Nursing Home Relationship Specialty Start Date End Date Autumn Lucas PCP - General CHARGE ACCOUNT IDENTIFICATION CLERK 05/28/16 Manager Nursing Home Relationship Specialty Start Date End Date Autumn Lucas PCP - General CHARGE ACCOUNT IDENTIFICATION CLERK 05/28/16 Manager Nursing Home Relationship Specialty Start Date End Date Autumn Lucas PCP - General CHARGE ACCOUNT IDENTIFICATION CLERK 05/28/16 Manager Nursing Home Relationship Specialty Start Date End Date Autumn Lucas PCP - General CHARGE ACCOUNT IDENTIFICATION CLERK 05/28/16 Manager Nursing Home Relationship Specialty Start Date End Date Autumn Lucas PCP - General CHARGE ACCOUNT IDENTIFICATION CLERK 05/28/16 Manager Nursing Home Relationship Specialty Start Date End Date Autumn Lucas PCP - General CHARGE ACCOUNT IDENTIFICATION CLERK 05/28/16 Reason for Visit (unrecogniz ed section and content) Specialty Diagnoses / Procedures Referred By Ezekielac t Referred To Contact [facility] Diagnoses S/P mastectomy, bilateral Procedures CONSULT TO BREAST REHAB PROGRAM THERAPEUTIC EXERCISES RE, EA 15 MIN. THERAPEUT ACTVITY DIRECT PT CONTACT EACH 15 MIN Mariana Sun APRN.[employer] [address] [id number] [facility] [place] [address] [place] [address] Referral ID Status Reason Start Date Expiration Date V isits Requested Visits Authorized [id number] Authorized 08/11/2022 08/07/2023 20 20 Reason Comments Post Op Bilat Breast Recon, discoloration to bilat breast Specialty Diagnoses / Procedures Referred By Donovan t Referred To Contact Plastic Surgery / PLASTIC SURGERY Diagnoses Follow-up exam consult brest recon per dr thorne Procedures OFFICE/OUTPATIENT NEW MODERATE MDM 45-59 MINUTES NEW [facility] BREAST RECON Self(Historical) Danisha Muñoz MD [address] [id number] Referral ID Status Reason Start Date Expiration Date V isits Requested Visits Authorized [id number] Authorized 05/06/2022 05/06/2023 4 4 Reason Comments Post Op Specialty Diagnoses / Procedures Referred By Donovan t Referred To Contact Plastic Surgery / PLASTIC SURGERY Diagnoses Post-operative state Post op - Ok per AB and NQ Procedures OFFICE/OUTPATIENT ESTABLISHED MOD MDM 30-39 MIN POST OP Mariana Sun APRN.[employer] [address] [place] [address] Mariana Sun APRN.[employer] [address] [place] [address] Referral ID Status Reason Start Date Expiration Date Visits Re quested Visits Authorized [id number] Closed 06/10/2022 09/08/2022 1 1 Specialty Diagnoses / Procedures Referred By Donovan t Referred To Contact General Surgery / GENERAL SURGERY Diagnoses BRCA2 gene mutation negative 9:30A IMAGING; BRCA2+; last seen [place] 02/2017 Procedures NEW PATIENT VISIT LEVEL 5 [facility] Self Sujey Garcia APRN.[employer] [address] [place] [address] Referral ID Status Reason Start Date Expiration Date Visits Re quested Visits Authorized [id number] Closed 06/12/2021 06/12/2022 4 4 Reason Comments Appointment Reason Comments Follow Up Specialty Diagnoses / Procedures Referred By Donovan gutierres Referred To Contact Psychology / GENS BR PSYL MAIN Diagnoses 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 NEW CONSULT HIGH RISK Procedures PHYS/QHP TELEPHONE EVALUATION 5-10 MIN VIDEO PSYC/PSYL Sujey Crews, SHIP UNLOADER.[employer] [address] [place] [address] Lakeisha Viramontes, PhD [address] [place] [address] Referral ID Status Reason Start Date Expiration Date V isits Requested Visits Authorized [id number] Closed Patient Cleared - Admin/Chairm an/Director advise [...] Expiration Date V isits Requested Visits Authorized [id number] Authorized 06/12/2021 06/12/2022 4 4 Reason Comments PHOTOS TAKEN Reason Comments New Patient Surgical consult Specialty Diagnoses / Procedures Referred By Donovan gutierres Referred To Contact Breast Diseases / GENERAL SURGERY Diagnoses Fibrocystic breast changes of both breasts brca 2 pos Procedures OFFICE/OUTPATIENT NEW MODERATE MDM 45-59 MINUTES [facility] Wade Scott MD [address] [place] [address] [place] [address] [place] [address] Referral ID Status Reason Start Date Expiration Date V isits Requested Visits Authorized [id number] Authorized 01/29/2022 01/29/2023 20 20 Reason Comments Consult Recon Specialty Diagnoses / Procedures Referred By Contac t Referred To Contact General Surgery / GENERAL SURGERY Diagnoses BRCA2 gene mutation negative 9:30A IMAGING; BRCA2+; last seen [place] 02/2017 Procedures NEW PATIENT VISIT LEVEL 5 [facility] Self, Sujey Tracey, SHIP UNLOADER.[employer] [address] [place] [address] Reason Comments Consult Specialty Diagnoses / Procedures Referred By Contac t Referred To Contact Anesthesiology / ANESTHESIOLOGY Diagnoses Follow-up examination Mast, Dr. Thorne [facility] 05/25 Procedures OFFICE/OUTPATIENT ESTABLISHED MOD [facility] 30-39 MIN COMPLETE PACC Judy Crisostomo PA-C [address] [place] [address] 1, Pacc [place] [address] [place] [address] Referral ID Status Reason Start Date Expiration Date Visits Re quested Visits Authorized [id number] Closed 05/07/2022 08/07/2022 1 1 Reason Comments Patient Education Bilateral NS Risk re ducing Mastectomies with recon Reason Comments Education Of Patient/family Post-op visi t Reason Comments Post Op Call Reason Comments Post Op Follow Up Reason Comments Patient Update Nurse Navigation Reason Comments Post Op Partha Breast recon Referral ID Status Reason Start Date Expiration Date Visits Re quested Visits Authorized [id number] Closed 05/06/2022 05/06/2023 2 1 Specialty Diagnoses / Procedures Referred By Contac t Referred To Contact Plastic Surgery / PLASTIC SURGERY Diagnoses Other specified postprocedural states post op Procedures OFFICE/OUTPATIENT ESTABLISHED MOD [facility] 30-39 MIN VIDEO SPEC EST Mariana Sun, SHIP UNLOADER.[employer] [address] [place] [address] Mariana Sun APRN.[employer] [address] [place] [address] Referral ID Status Reason Start Date Expiration Date Visits Re quested Visits Authorized [id number] Closed 05/06/2022 04/26/2023 1 1 Reason Comments Post Op Specialty Diagnoses / Procedures Referred By Contac t Referred To Contact GENERAL SURGERY Diagnoses Fibrocystic breast changes of both breasts brca 2 pos Procedures OFFICE/OUTPATIENT NEW MODERATE MDM 45-59 MINUTES [facility] Wade Scott MD [address] [place] [address] [place] [address] [place] [address] Referral ID Status Reason Start Date Expiration Date V isits Requested Visits Authorized [id number] Authorized 01/29/2022 01/29/2023 20 21 Reason Comments Established Patient Specialty Diagnoses / Procedures Referred By Contac t Referred To Contact GENERAL SURGERY Diagnoses Fibrocystic breast changes of both breasts brca 2 pos Procedures OFFICE/OUTPATIENT NEW MODERATE MDM 45-59 MINUTES [facility] Wade Corea MD [address] [place] [address] [place] [address] [place] [address] Reason Comments PT Eval Specialty Diagnoses / Procedures Referred By Contac t Referred To Contact [facility] Diagnoses S/P mastectomy, bilateral Procedures CONSULT TO BREAST REHAB PROGRAM THERAPEUTIC EXERCISES RE, EA 15 MIN. THERAPEUT ACTVITY DIRECT PT CONTACT EACH 15 MIN Mariana Sun APRN.[facility] [address] [place] [address] [facility] [place] [address] Referral ID Status Reason Start Date Expiration Date V isits Requested Visits Authorized [id number] Pending Review 07/02/2022 07/02/2023 1 1 Referral ID Status Reason Start Date Expiration Date Visits Re quested Visits Authorized [id number] Closed 05/06/2022 05/06/2023 4 4 Reason Comments PT Progress Note Reason Comments Information INFORMATION SOURCE (unrecogn ized section and content) DATE CREATED AUTHOR AUTHOR'S ORGANIZ ATION 03/31/2023 [facility] FOR RECORDS PERTAINING TO PATIENTS WHO [...] BE BASED ON THE PRIMARY CLINICAL RECORDS. [facility]. provides no warranty or guarantee of the accuracy or completeness of information in this document.
[2023-09-22 09:13] LABS: Vitamin D,25 Hydroxy 33.4 ng/mL
[2023-09-22 09:26] LABS: Hemoglobin A1c 5.4 % (3.8-5.6)
[2023-09-22 09:27] LABS: ALB/GLOB Ratio 0.9 RATIO (0.9-2.4); AST(SGOT) 21 U/L (15-37); Alanine Aminotransfer ALT/SGPT 19 U/L (13-56); Albumin, Serum 3.5 g/dL (3.2-5.0); Alkaline Phosphatase 112 U/L (45-117); Anion Gap 6 (5-15); BUN 13 mg/dL (7-18); BUN/Creat Ratio 16.1 RATIO (10-20); Calcium,Total 8.9 mg/dL (8.5-10.1); Chloride 110 mmol/L (98-107); Cholesterol 213 mg/dL (200); EST Glomerular Filtration Rate 79 mL/min (>60); Est Glom Filt Rate - Afr Amer 96 mL/min (>60); Globulin 3.9 g/dL (2.2-4.2); Glucose 106 mg/dL (74-106); High Density Lipoprotein 68 mg/dL; Potassium 3.8 mmol/L (3.5-5.1); Protein, Total 7.4 g/dL (6.4-8.2); Sodium Level 142 mmol/L (136-145); Thyroid Stim Hormone (TSH) 0.96 uIU/mL (0.358-3.74); Triglycerides 135 mg/dL; Very Low Density Lipoprotein 27 mg/dL (5-40)
== END | disposition home or self-care (01) ==
LOC: PAVLAB 08:42
PROVIDERS: Referring Provider Obstetrics & Gynecology; Visit Provider Obstetrics & Gynecology
DX: Z13.0 Encounter for screening for diseases of the blood and blood-forming organs and certain disorders involving the immune mechanism (principal); Z13.21 Encounter for screening for nutritional disorder; Z13.1 Encounter for screening for diabetes mellitus
CPT/HCPCS: 36415; 80053; 80061; 82306; 83036; 84443; 85025